=== PATIENT | male | born 1970 | race Caucasian/White ===

== ENCOUNTER 2016-12-02 03:28 | Emergency (ER) | payer BC ==
[2016-12-02] MEDS ORDERED: ONDANSETRON 4MG/2ML VIAL (J2405) As Ordered ONE (04:04)
[2016-12-02] MEDS ORDERED: MORPHINE 4 MG/ML 1ML SYRINGE As Ordered ONE (04:04)
[2016-12-02 04:32] LABS: BASO % 0.6 % (0.0-1.0); EOS # 0.3 K/mm3 (0.0-0.50); EOS % 5.4 % (0.0-3.0); LARGE UNSTAINED CELL # 0.1 K/mm3 (0.0-0.4); LARGE UNSTAINED CELL % 1.5 % (0.0-4.0); LYMPH # 1.6 K/mm3 (1.5-4.5); LYMPH % 29.9 % (24.0-44.0); MEAN CORPUSCULAR HEMOGLOBIN 30.7 pg (27.0-33.0); MEAN CORPUSCULAR HGB CONC 34.3 g/dl (32.0-36.5); MEAN CORPUSCULAR VOLUME 89.6 fl (80.0-96.0); MONO # 0.4 K/mm3 (0.0-0.8); MONO % 7.7 % (0.0-5.0); NEUTROPHILS # 2.9 K/mm3 (1.8-7.7); NEUTROPHILS % 54.8 % (36.0-66.0); PLATELET COUNT, AUTOMATED 167 k/mm3 (150-450); RED CELL DISTRIBUTION WIDTH 12.8 % (11.5-14.5); WHITE BLOOD COUNT 5.2 K/mm3 (4.0-10.0)
[2016-12-02] MEDS ORDERED: HYDROmorphone HCL 1 MG/ML SYRINGE (J1170) As Ordered ONE ×2 (04:43→06:01)
[2016-12-02 04:57] LABS: ANION GAP 5 MEQ/L (8-16); BLOOD UREA NITROGEN 15 MG/DL (7-18); CALCIUM LEVEL 8.5 MG/DL (8.5-10.1); CARBON DIOXIDE LEVEL 28 MEQ/L (21-32); CHLORIDE LEVEL 111 MEQ/L (98-107); CREATININE FOR GFR 0.92 MG/DL (0.70-1.30); GLOMERULAR FILTRATION RATE > 60.0 (>60); GLUCOSE, FASTING 107 MG/DL (70-105); POTASSIUM SERUM 3.9 MEQ/L (3.5-5.1); SODIUM LEVEL 144 MEQ/L (136-145)
--- NOTE | 2016-12-02 05:25 | REP ---
Clinical: Chest pain . Comparison: 09/25/2016 . Technique: PA and lateral. Findings: The mediastinum and cardiac silhouette are normal. The lung barragan are clear and without acute consolidation, effusion, or pneumothorax. The skeletal structures are intact and normal. Impression: 1. No acute cardiopulmonary process. Signed by Kumar Osorio MD 12/02/2016 05:17 A
--- NOTE | 2016-12-02 09:00 | ECGEPIP ---
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
--- NOTE | 2016-12-02 11:08 | EDDOCDS ---
Nurse's Notes [facility] Name: Abebe Goodman Age: 46 yrs Sex: Male : 1970 Arrival Date: 12/02/2016 Time: 03:28 Bed OBSERVATION Private MD: Ashli Bullard Diagnosis: Chest pain, unspecified Presentation: 12/02 03:30 Presenting complaint: EMS states: patient woke up an hour ago with chest pain. Patient nn1 given 3 nitro and 4 baby ASA at 0305. Nitro only offered momentary relief. Last nitro at 0320, pain is 5/10 at this time. Aspirin was taken HYPERTRICHOLOGIST. Suicide/Homicide risk assessment- the patient denies having any suicidal and/or homicidal ideations and does not present with any other emotional, behavioral or mental health complaints. Status: Patient is not a sales and service representative or dependent. Transition of care: patient was not received from another setting of care. 03:30 Acuity: BABS Level 3 nn1 03:30 Method Of Arrival: Ambulance nn1 10:03 Adult Sepsis Screening: The patient does not have new or worsening altered mentation. kc3 Patient's respiratory rate is less than 22. Systolic blood pressure is greater than 100. Patient has a qSOFA score of 0- Negative Sepsis Screen. Triage Assessment: 03:37 General: Appears uncomfortable. Pain: Location: left clavicle, anterior aspect of left nn1 upper chest and left breast Pain currently is 5 out of 10 on a pain scale. Pain radiates to posterior aspect of left shoulder Pain began 1 hour ago. HIV screening NA for this visit Offered previously. The patient is triaged at the bedside. See Assessment in Nurses Notes section of ED record. Neurological: Level of Consciousness is awake, alert, Oriented to person, place, time. Cardiovascular: Rhythm is regular Chest pain is described as severe, radiates to left scapula episodes are continuous began 1 hour prior to arrival Patient reports this pain is different from other chest pains in the past. Respiratory: Airway is patent Respiratory effort is even, unlabored, Respiratory pattern is regular, Breath sounds are clear bilaterally. Reports shortness of breath. GI: Abdomen is non- distended Bowel sounds present X 4 quads. Reports nausea. Derm: Skin is pink, warm & dry. Musculoskeletal: No deficits noted. Historical: - Allergies: No known drug Allergies; - Home Meds: 1. Crestor Oral once daily 2. Flomax Oral once daily 3. Nexium Oral once daily - PMHx: GERD; Hypercholesterolemia; - PSHx: Ablation, Cardiac; Shoulder Arthroplasty, Left; Shoulder Arthroplasty. Right; Hernia repair; Appendectomy; - Social history: Smoking status: Patient states former smoker of tobacco. No barriers to communication noted, The patient speaks fluent Divehi, Speaks appropriately for age. - Family history: Not pertinent. - : The pt / caregiver states he / she is not on anticoagulants. Home medication list is obtained from the patient. - Exposure Risk Screening:: None identified. Screenin:39 Screening information is obtained from the patient. Fall risk: No risks identified. nn1 Assistance ADL's: requires no assistance with activities of daily living. Abuse/DV Screen: The patient / caregiver reports he/she is: not in a situation that causes fear, pain or injury. Nutritional screening: No deficits noted. Advance Directives: Currently, there is no health care proxy. There is no active DNR order. home support is adequate. Assessment: 03:42 General: See triage assessment . nn1 04:29 General: Appears in no apparent distress, Behavior is appropriate for age, cooperative. nn1 Neurological: Level of Consciousness is awake, alert, obeys commands. Cardiovascular: Capillary refill < 3 seconds Heart tones S1 S2 present Rhythm is regular. Respiratory: Airway is patent Respiratory effort is even, unlabored, Respiratory pattern is regular, symmetrical. Derm: Skin is pink, warm & dry. 05:30 Reassessment: Patient appears in no apparent distress at this time. nn1 06:36 General: Appears in no apparent distress, comfortable, Behavior is appropriate for age, nn1 cooperative. Neurological: Level of Consciousness is awake, alert, obeys commands. Respiratory: Airway is patent Respiratory effort is even, unlabored, Respiratory pattern is regular, symmetrical. Derm: Skin is pink, warm & dry. 06:46 Reassessment: Patient appears in no apparent distress at this time. Patient states nn1 feeling better. General: Appears Behavior is drowsy. 07:27 General: Appears to be sleeping. Cardiovascular: Rhythm is sinus bradycardia. jjr Respiratory: No deficits noted. Derm: Skin is pink, warm & dry. 08:22 General: Appears in no apparent distress. Cardiovascular: Rhythm is sinus rhythm Chest jjr pain is described as Pain is 1 out of 10 on a pain scale. is located in left anterior radiates Does not radiate. Respiratory: No deficits noted. Derm: No deficits noted. 09:20 General: Appears in no apparent distress, comfortable, Behavior is appropriate for age, kc3 cooperative. Pain: Location: chest Pain currently is 1 out of 10 on a pain scale. Neurological: Level of Consciousness is awake, alert, obeys commands, Oriented to person, place, time. Cardiovascular: Rhythm is sinus rhythm. Respiratory: Airway is patent Respiratory effort is even, unlabored. Derm: Skin is pink, warm & dry. 10:01 General: Appears in no apparent distress, comfortable, Behavior is appropriate for age, kc3 cooperative. Neurological: Level of Consciousness is awake, alert, obeys commands, Oriented to person, place, time. Cardiovascular: Rhythm is sinus rhythm. Cardiovascular: Rhythm is regular. Respiratory: Airway is patent Respiratory effort is even, unlabored. Derm: Skin is pink, warm & dry. 11:03 Reassessment: Patient denies pain at this time. General: Appears comfortable, well kcs developed, well nourished, well groomed, Behavior is cooperative, pleasant. Pain: Denies pain. Neurological: Level of Consciousness is awake, alert. Respiratory: Airway is patent Respiratory effort is even, unlabored, Respiratory pattern is regular, symmetrical. Derm: Skin is intact, is healthy with good turgor, Skin is dry, Skin is normal. Vital Signs: 03:41 BP 111 / 72; Pulse 63; Resp 18; Temp 98.5; Pulse Ox 98% on R/A; Weight 92.99 kg (R); nn1 Height 6 ft. 1 in. (185.42 cm); Pain 5/10; 03:53 Pulse 58 MON; Pulse Ox 97% ; nn1 03:54 BP 111 / 71 (auto/); nn1 04:08 Pulse 52 MON; Pulse Ox 98% ; nn1 04:09 BP 116 / 75 (auto/); nn1 04:23 Pulse 60 MON; Pulse Ox 97% ; nn1 04:24 BP 114 / 72 (auto/); nn1 04:35 Pulse 70 MON; Pulse Ox 97% ; nn1 04:38 Pulse 54 MON; nn1 04:39 BP 117 / 71 (auto/); nn1 04:53 Pulse 58 MON; Pulse Ox 95% ; nn1 04:54 BP 111 / 70 (auto/); nn1 05:08 Pulse 50 MON; Pulse Ox 95% ; nn1 05:09 BP 114 / 72 (auto/); nn1 05:23 Pulse 50 MON; Pulse Ox 96% ; nn1 05:24 BP 116 / 71 (auto/); nn1 05:38 Pulse 48 MON; Pulse Ox 97% ; nn1 05:39 BP 117 / 73 (auto/); nn1 05:54 BP 117 / 75 (auto/); nn1 05:54 Pulse 60 MON; Pulse Ox 96% ; nn1 06:09 Pulse 76 MON; nn1 06:09 BP 125 / 83 (auto/); nn1 06:12 Pulse 76 MON; Pulse Ox 96% ; nn1 06:24 BP 112 / 72 (auto/); nn1 06:24 Pulse 48 MON; Pulse Ox 96% ; nn1 06:39 BP 113 / 70 (auto/); nn1 06:39 Pulse 50 MON; Pulse Ox 95% ; nn1 06:54 BP 115 / 76 (auto/); jjr 06:54 Pulse 46 MON; Resp 18; Pulse Ox 97% on R/A; jjr 07:54 BP 107 / 54 (auto/); kc3 08:00 Pulse 56 MON; Pulse Ox 97% ; kc3 08:20 Pulse 80 MON; Pulse Ox 97% ; kc3 08:54 BP 125 / 72 (auto/); kc3 08:54 Pulse 68 MON; kc3 09:54 BP 121 / 72 (auto/); kc3 09:54 Pulse 60 MON; kc3 11:03 BP 127 / 74; Pulse 82; Resp 20; Temp 97.4(O); Pulse Ox 98% on R/A; Pain 0/10; kcs 03:41 Body Mass Index 27.05 (92.99 kg, 185.42 cm) nn1 Vitals: 03:41 Log In Time N/A - ambulance arrival. nn1 ED Course: 03:29 Patient visited by Brandon Crocker PCA. kb5 03:29 Ashli Bullard MD is Private Physician. kb5 03:29 Patient moved to Waiting kb5 03:29 Patient moved to kb5 03:32 Triage Initiated nn1 03:40 Patient visited by David Ring PCA. mdr 03:40 EKG done. (by ED staff). Reviewed by Eddie Castillo DO. mdr 03:50 Eddie Castillo DO is Attending Physician. mm11 03:50 Patient visited by Eddie Castillo DO. mm11 04:01 Patient visited by Eddie Castillo DO. mm11 04:18 [facility] Payment Agreement was scanned into [employer] and attached to record. hs2 04:26 Basic Metabolic Profile Sent. jmv 04:26 CBC with Diff Sent. jmv 04:26 Cardiac Injury Profile Sent. jmv 04:26 D-Dimer Quant Sent. jmv 04:26 Troponin Sent. jmv 04:59 Patient visited by Chrystal Jane RN. nn1 05:40 Chest, 2 View (pa\E\lat) Returned. EDMS 05:57 Patient visited by Chrystal Jane RN. nn1 06:36 Patient visited by Chrystal Jane RN. nn1 07:08 Angie Johnson, ANGIE is Primary Nurse. jjr 07:24 Patient visited by Eddie Castillo DO. mm11 07:26 Patient moved to OBSERVATION mm11 07:27 Patient visited by Angie Johnson, ANGIE. jjr 07:35 Attending Physician role handed off by Eddie Castillo DO sd1 07:35 Monalisa Davila MD is Attending Physician. sd1 08:23 Patient visited by Angie Johnson, ANGIE. jjr 09:01 EKG-ADULT Returned. EDMS 09:40 CARDIAC MARKER PANEL Sent. kc3 09:41 Patient visited by Elif Mora RN. kc3 10:03 The patient / caregiver is instructed regarding the plan of care and ED course. Cardiac kc3 monitor on. Pulse ox on. NIBP on. 10:04 Maintain field IV. Dressing intact. Site clean & dry. Gauge & site: 20G left AC. kc3 10:26 Ruy Henry is Referral Physician. sd1 10:26 Ashli Bullard MD is Referral Physician. sd1 11:03 Discontinued lock intact, bleeding controlled, pressure dressing applied, No kcs redness/swelling at site. No procedures done that require assistance. Administered Medications: 04:09 Drug: Ondansetron 4 mg [ondansetron HCl 2 mg/mL intravenous solution (2 mL)] Route: nn1 IVP; Site: left antecubital; 04:10 Drug: morphine 4 mg [morphine 4 mg/mL intravenous cartridge (1 mL)] Route: IVP; Site: nn1 left antecubital; 04:51 Drug: Dilaudid - HYDROmorphone 0.5 mg [hydromorphone 1 mg/mL injection syringe (0.5 nn1 mL)] Route: IVP; Site: left antecubital; 06:09 Drug: Dilaudid - HYDROmorphone 0.5 mg [hydromorphone 1 mg/mL injection syringe (0.5 nn1 mL)] Route: IVP; Site: left antecubital; Order Results: Lab Order: Basic Metabolic Profile; SPEC'M 12/02/16 04:23 Test: GLUCOSE, FASTING; Value: 107; Range: 70-105; Abnormal: Above high normal; Units: MG/DL; Status: F Test: BLOOD UREA NITROGEN; Value: 15; Range: 7-18; Units: MG/DL; Status: F Test: CREATININE FOR GFR; Value: 0.92; Range: 0.70-1.30; Units: MG/DL; Status: F Test: GLOMERULAR FILTRATION RATE; Value: > 60.0; Range: >60; Status: F Test: SODIUM LEVEL; Value: 144; Range: 136-145; Units: MEQ/L; Status: F Test: POTASSIUM SERUM; Value: 3.9; Range: 3.5-5.1; Units: MEQ/L; Status: F Test: CHLORIDE LEVEL; Value: 111; Range: 98-107; Abnormal: Above high normal; Units: MEQ/L; Status: F Test: CARBON DIOXIDE LEVEL; Value: 28; Range: 21-32; Units: MEQ/L; Status: F Test: ANION GAP; Value: 5; Range: 8-16; Abnormal: Below low normal; Units: MEQ/L; Status: F Test: CALCIUM LEVEL; Value: 8.5; Range: 8.5-10.1; Units: MG/DL; Status: F Test Note: ; Units are mL/min/1.73 m2 Chronic Kidney Disease Staging per NKF: Stage I & II GFR >=60 Normal to Mildly Decreased Stage III GFR 30-59 Moderately Decreased Stage IV GFR 15-29 Severely Decreased Stage V GFR <15 Very Little GFR Left ESRD GFR <15 on MELTER SUPERVISOR OPEN HEARTH FURNACE Lab Order: CBC with Diff; SPEC'M 12/02/16 04:23 Test: WHITE BLOOD COUNT; Value: 5.2; Range: 4.0-10.0; Units: K/mm3; Status: F Test: RED BLOOD COUNT; Value: 4.56; Range: 4.30-6.10; Units: M/mm3; Status: F Test: HEMOGLOBIN; Value: 14.0; Range: 14.0-18.0; Units: g/dl; Status: F Test: HEMATOCRIT; Value: 40.9; Range: 42.0-52.0; Abnormal: Below low normal; Units: %; Status: F Test: MEAN CORPUSCULAR VOLUME; Value: 89.6; Range: 80.0-96.0; Units: fl; Status: F Test: MEAN CORPUSCULAR HEMOGLOBIN; Value: 30.7; Range: 27.0-33.0; Units: pg; Status: F Test: MEAN CORPUSCULAR HGB CONC; Value: 34.3; Range: 32.0-36.5; Units: g/dl; Status: F Test: RED CELL DISTRIBUTION WIDTH; Value: 12.8; Range: 11.5-14.5; Units: %; Status: F Test: PLATELET COUNT, AUTOMATED; Value: 167; Range: 150-450; Units: k/mm3; Status: F Test: NEUTROPHILS %; Value: 54.8; Range: 36.0-66.0; Units: %; Status: F Test: LYMPH %; Value: 29.9; Range: 24.0-44.0; Units: %; Status: F Test: MONO %; Value: 7.7; Range: 0.0-5.0; Abnormal: Above high normal; Units: %; Status: F Test: EOS %; Value: 5.4; Range: 0.0-3.0; Abnormal: Above high normal; Units: %; Status: F Test: BASO %; Value: 0.6; Range: 0.0-1.0; Units: %; Status: F Test: LARGE UNSTAINED CELL %; Value: 1.5; Range: 0.0-4.0; Units: %; Status: F Test: NEUTROPHILS #; Value: 2.9; Range: 1.8-7.7; Units: K/mm3; Status: F Test: LYMPH #; Value: 1.6; Range: 1.5-4.5; Units: K/mm3; Status: F Test: MONO #; Value: 0.4; Range: 0.0-0.8; Units: K/mm3; Status: F Test: EOS #; Value: 0.3; Range: 0.0-0.50; Units: K/mm3; Status: F Test: BASO #; Value: 0.0; Range: 0.0-0.2; Units: K/mm3; Status: F Test: LARGE UNSTAINED CELL #; Value: 0.1; Range: 0.0-0.4; Units: K/mm3; Status: F Lab Order: Cardiac Injury Profile; SPEC12/02/16 04:23 Test: CPK CREATINE PHOSPHOKINASE; Value: 126; Range: 39-308; Units: U/L; Status: F Test: CK-MB VALUE MASS; Value: 1.9; Range: 0.0-3.6; Units: NG/ML; Status: F Test: MB/CK RELATIVE INDEX; Value: 1.50; Range: < OR =4; Status: F Test Note: ; DIAGNOSIS CRITERIA MMB ng/ml Relative Index (RI) NON-AMI < or = 5 N/A VELASQUEZ ZONE > 5 < or = 4 AMI > 5 > 4 Lab Order: D-Dimer Quant; 12/02/16 04:23 Test: D-DIMER QUANT; Value: < 270.0; Range: <500; Units: ng/ml; Status: F Lab Order: Troponin; 12/02/16 04:23 Test: TROPONIN I; Value: < 0.02; Range: < 0.10; Units: NG/ML; Status: F Test Note: ; Troponin I Reference Interval for [place] LOCI: 99th Percentile= 0.00-0.045 ng/ml Risk Stratification: <= 0.10 ng/ml Decreased Risk for Adverse Clinical Events. 0.10-1.50 ng/ml Increased Risk for Adverse Clinical Events. Evaluation of additional criterion and/or repeat testing in 2-6 hours is suggested to rule out myocardial damage. >= 1.50 ng/ml Indicative of Myocardial Injury. Lab Order: CARDIAC MARKER PANEL; SPEC'M 12/02/16 09:33 Test: CPK CREATINE PHOSPHOKINASE; Value: 112; Range: 39-308; Units: U/L; Status: F Test: CK-MB VALUE MASS; Value: 1.7; Range: 0.0-3.6; Units: NG/ML; Status: F Test: MB/CK RELATIVE INDEX; Value: 1.51; Range: < OR =4; Status: F Test: TROPONIN I; Value: < 0.02; Range: < 0.10; Units: NG/ML; Status: F Test Note: ; DIAGNOSIS CRITERIA MMB ng/ml Relative Index (RI) NON-AMI < or = 5 N/A VELASQUEZ ZONE > 5 < or = 4 AMI > 5 > 4 Radiology Order: Chest, 2 View (pa\E\lat) Test: Chest, 2 View (pa\E\lat) REASON FOR EXAMINATION: Chest Pain; Clinical: Chest pain .; ; Comparison: 09/25/2016 .; ; Technique: PA and lateral.; ; Findings:; The mediastinum and cardiac silhouette are normal. The lung barragan are clear and; without acute consolidation, effusion, or pneumothorax. The skeletal structures; are intact and normal.; ; Impression:; 1. No acute cardiopulmonary process.; ; ; Signed by; Kumar Osorio MD 12/02/2016 05:17 A; Outcome: 10:26 Discharge ordered by Provider. sd1 11:03 Discharge Assessment: Patient awake, alert and oriented x 3. No cognitive and/or kcs functional deficits noted. Patient verbalized understanding of disposition instructions. Patient awake and alert. patient administered narcotics - yes. Pt provided with safe discharge. The following High Risk Discharge criteria are identified: None. Discharged to home ambulatory, with significant other. Condition: stable. Discharge instructions given to patient, Instructed on discharge instructions, follow up and referral plans. medication usage, Demonstrated understanding of instructions, medications, Pt was receptive of discharge instructions/ teaching. No special radiology studies were completed. Property sent home with patient. 11:07 Patient left the ED. kcs Signatures: Dispatcher [employer] EDMonalisa Rodas MD MD sd1 Merry Lawler, RN RN Brandon Corley, INFORMATION SECURITY MANAGER INFORMATION SECURITY MANAGER kb5 Eddie Castillo, DO DO mm11 Angie Johnson, RN RN jjr Chrystal Jane RN RN nn1 David Ring, INFORMATION SECURITY MANAGER INFORMATION SECURITY MANAGER mdr Elif Mora RN RN kc3 Charlee Cordova, Reg Reg hs2 Elliot Jara, INFORMATION SECURITY MANAGER INFORMATION SECURITY MANAGER jmv Corrections: (The following items were deleted from the chart) 03:54 03:41 BP 117 / 2; Pulse 63bpm; Resp 18bpm; Pulse Ox 98% RA; Temp 98.5F; 92.99 kg nn1 Reported; Height 6 ft. 1 in.; BMI: 27.0; Pain 5/10; nn1 MTDD
--- NOTE | 2016-12-02 11:08 | EDDOCDS ---
Physician Documentation [facility] Name: Abebe Goodman Age: 46 yrs Sex: Male : 1970 Arrival Date: 12/02/2016 Time: 03:28 Bed OBSERVATION Private MD: Ashli Bullard Disposition: 12/02/16 10:26 Discharged to Home/Self Care. Impression: Chest pain, unspecified. - Condition is Stable. - Discharge Instructions: Angina Pectoris, Nonspecific Chest Pain, Chest Wall Pain, Nonspecific Chest Pain, [id number]. - Prescriptions for Aspirin 81 mg - take 1 tablet by ORAL route once daily; 90 tablet. - Medication Reconciliation, Local Pharmacy Hours form. - Follow up: Ruy Henry; When: Call to arrange an appointment. Follow up: Ashli Bullard MD; When: Call to arrange an appointment. - Problem is an acute exacerbation. - Symptoms are resolved. Historical: - Allergies: No known drug Allergies; - Home Meds: 1. Crestor Oral once daily 2. Flomax Oral once daily 3. Nexium Oral once daily - PMHx: GERD; Hypercholesterolemia; - PSHx: Ablation, Cardiac; Shoulder Arthroplasty, Left; Shoulder Arthroplasty. Right; Hernia repair; Appendectomy; - Social history: Smoking status: Patient states former smoker of tobacco. No barriers to communication noted, The patient speaks fluent Czech, Speaks appropriately for age. - Family history: Not pertinent. - : The pt / caregiver states he / she is not on anticoagulants. Home medication list is obtained from the patient. - Exposure Risk Screening:: None identified. Vital Signs: 12/02 03:41 BP 111 / 72; Pulse 63; Resp 18; Temp 98.5; Pulse Ox 98% on R/A; Weight 92.99 kg / nn1 205.01 lbs (R); Height 6 ft. 1 in. (185.42 cm); Pain 5/10; 03:53 Pulse 58 MON; Pulse Ox 97% ; nn1 03:54 BP 111 / 71 (auto/); nn1 04:08 Pulse 52 MON; Pulse Ox 98% ; nn1 04:09 BP 116 / 75 (auto/); nn1 04:23 Pulse 60 MON; Pulse Ox 97% ; nn1 04:24 BP 114 / 72 (auto/); nn1 04:35 Pulse 70 MON; Pulse Ox 97% ; nn1 04:38 Pulse 54 MON; nn1 04:39 BP 117 / 71 (auto/); nn1 04:53 Pulse 58 MON; Pulse Ox 95% ; nn1 04:54 BP 111 / 70 (auto/); nn1 05:08 Pulse 50 MON; Pulse Ox 95% ; nn1 05:09 BP 114 / 72 (auto/); nn1 05:23 Pulse 50 MON; Pulse Ox 96% ; nn1 05:24 BP 116 / 71 (auto/); nn1 05:38 Pulse 48 MON; Pulse Ox 97% ; nn1 05:39 BP 117 / 73 (auto/); nn1 05:54 BP 117 / 75 (auto/); nn1 05:54 Pulse 60 MON; Pulse Ox 96% ; nn1 06:09 Pulse 76 MON; nn1 06:09 BP 125 / 83 (auto/); nn1 06:12 Pulse 76 MON; Pulse Ox 96% ; nn1 06:24 BP 112 / 72 (auto/); nn1 06:24 Pulse 48 MON; Pulse Ox 96% ; nn1 06:39 BP 113 / 70 (auto/); nn1 06:39 Pulse 50 MON; Pulse Ox 95% ; nn1 06:54 BP 115 / 76 (auto/); jjr 06:54 Pulse 46 MON; Resp 18; Pulse Ox 97% on R/A; jjr 07:54 BP 107 / 54 (auto/); kc3 08:00 Pulse 56 MON; Pulse Ox 97% ; kc3 08:20 Pulse 80 MON; Pulse Ox 97% ; kc3 08:54 BP 125 / 72 (auto/); kc3 08:54 Pulse 68 MON; kc3 09:54 BP 121 / 72 (auto/); kc3 09:54 Pulse 60 MON; kc3 11:03 BP 127 / 74; Pulse 82; Resp 20; Temp 97.4(O); Pulse Ox 98% on R/A; Pain 0/10; kcs 03:41 Body Mass Index 27.05 (92.99 kg, 185.42 cm) nn1 MDM: 03:31 ECG WITH READING ER PHYS+CARDIAG ordered. EDMS 04:02 Venetian Blind Assembler/Pulse Ox/q 30 min VS ordered. mm11 04:02 IV Saline Lock ordered. mm11 04:02 Rhythm Strip to chart ordered. mm11 04:02 Undress patient appropriately for examination ordered. mm11 04:02 morphine 4 mg IVP every 30 minutes; Document pain score/vitals after each dose (Hold if mm11 SBP < 90mmHg) x2 ordered. 04:02 Ondansetron 4 mg IVP once ordered. mm11 04:03 Basic Metabolic Profile Ordered. EDMS 04:03 CBC with Diff Ordered. EDMS 04:03 Cardiac Injury Profile Ordered. EDMS 04:03 D-Dimer Quant Ordered. EDMS 04:03 Troponin Ordered. EDMS 04:04 Chest, 2 View (pa\E\lat) Ordered. EDMS 04:18 Financial registration complete. hs2 04:18 [facility] Payment Agreement was scanned into [employer] and attached to record. hs2 04:43 Dilaudid - HYDROmorphone 0.5 mg IVP once ordered. mm11 05:10 Basic Metabolic Profile Reviewed. mm11 05:10 CBC with Diff Reviewed. mm11 05:10 Cardiac Injury Profile Reviewed. mm11 05:10 D-Dimer Quant Reviewed. mm11 05:10 Troponin Reviewed. mm11 05:54 Dilaudid - HYDROmorphone 0.5 mg IVP once ordered. mm11 06:53 Chest, 2 View (pa\E\lat) Reviewed. mm11 07:24 Repeat EKG (put time details section) ordered. mm11 07:24 Redraw CIP &Troponin (put time in details section) ordered. mm11 07:28 REGULAR+DIET ordered. EDMS 07:28 Repeat EKG (put time details section) complete. deg 07:28 Redraw CIP &Troponin (put time in details section) complete. deg 07:29 ECG WITH READING ER PHYS ordered. EDMS 07:30 CARDIAC MARKER PANEL Ordered. EDMS 10:24 CARDIAC MARKER PANEL Reviewed. sd1 Administered Medications: 04:09 Drug: Ondansetron 4 mg [ondansetron HCl 2 mg/mL intravenous solution (2 mL)] Route: nn1 IVP; Site: left antecubital; 04:10 Drug: morphine 4 mg [morphine 4 mg/mL intravenous cartridge (1 mL)] Route: IVP; Site: nn1 left antecubital; 04:51 Drug: Dilaudid - HYDROmorphone 0.5 mg [hydromorphone 1 mg/mL injection syringe (0.5 nn1 mL)] Route: IVP; Site: left antecubital; 06:09 Drug: Dilaudid - HYDROmorphone 0.5 mg [hydromorphone 1 mg/mL injection syringe (0.5 nn1 mL)] Route: IVP; Site: left antecubital; Signatures: Dispatcher [employer] EDMonalisa Rodas MD MD sd1 Merry Lawler RN RN kcs Roslyn Potter, Microbiology Lab Technician Unit deg Eddie Castillo, DO mm11 Chrystal JaneRN RN nn1 Elif Mora RN RN kc3 Charlee Cordova, Reg Reg hs2 The chart was reviewed and I authenticate all verbal orders and agree with the evaluation and treatment provided.Attachments: 04:18 [facility] Payment Agreement hs2 MTDD
--- NOTE | 2016-12-02 21:07 | ECGEPIP ---
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
--- NOTE | 2016-12-04 12:08 | EDDOCDS ---
Nurse's Notes [facility] [facility] Name: Omkar Barajas Age: 46 yrs Sex: Male : 1970 Arrival Date: 12/02/2016 Time: 03:28 Bed OBSERVATION Private MD: Ashli Bullard Diagnosis: Chest pain, unspecified Presentation: 12/02 03:30 Presenting complaint: EMS states: patient woke up an hour ago with chest pain. Patient nn1 given 3 nitro and 4 baby ASA at 0305. Nitro only offered momentary relief. Last nitro at 0320, pain is 5/10 at this time. 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 Suicide/Homicide risk assessment- the patient denies having any suicidal and/or homicidal ideations and does not present with any other emotional, behavioral or mental health complaints. Status: Patient is not a food service aide or dependent. Transition of care: patient was not received from another setting of care. 03:30 Acuity: BABS Level 3 nn1 03:30 Method Of Arrival: Ambulance nn1 10:03 Adult Sepsis Screening: The patient does not have new or worsening altered mentation. kc3 Patient's respiratory rate is less than 22. Systolic blood pressure is greater than 100. Patient has a qSOFA score of 0- Negative Sepsis Screen. Triage Assessment: 03:37 General: Appears uncomfortable. Pain: Location: left clavicle, anterior aspect of left nn1 upper chest and left breast Pain currently is 5 out of 10 on a pain scale. Pain radiates to posterior aspect of left shoulder Pain began 1 hour ago. HIV screening NA for this visit Offered previously. The patient is triaged at the bedside. See Assessment in Nurses Notes section of ED record. Neurological: Level of Consciousness is awake, alert, Oriented to person, place, time. Cardiovascular: Rhythm is regular Chest pain is described as severe, radiates to left scapula episodes are continuous began 1 hour prior to arrival Patient reports this pain is different from other chest pains in the past. Respiratory: Airway is patent Respiratory effort is even, unlabored, Respiratory pattern is regular, Breath sounds are clear bilaterally. Reports shortness of breath. GI: Abdomen is non- distended Bowel sounds present X 4 quads. Reports nausea. Derm: Skin is pink, warm & dry. Musculoskeletal: No deficits noted. Historical: - Allergies: No known drug Allergies; - Home Meds: 1. Crestor Oral once daily 2. Flomax Oral once daily 3. Nexium Oral once daily - PMHx: GERD; Hypercholesterolemia; - PSHx: Ablation, Cardiac; Shoulder Arthroplasty, Left; Shoulder Arthroplasty. Right; Hernia repair; Appendectomy; - Social history: Smoking status: Patient states former smoker of tobacco. No barriers to communication noted, The patient speaks fluent Yakut, Speaks appropriately for age. - Family history: Not pertinent. - : The pt / caregiver states he / she is not on anticoagulants. Home medication list is obtained from the patient. - Exposure Risk Screening:: None identified. Screenin:39 Screening information is obtained from the patient. Fall risk: No risks identified. nn1 Assistance ADL's: requires no assistance with activities of daily living. Abuse/DV Screen: The patient / caregiver reports he/she is: not in a situation that causes fear, pain or injury. Nutritional screening: No deficits noted. Advance Directives: Currently, there is no health care proxy. There is no active DNR order. home support is adequate. Assessment: 03:42 General: See triage assessment . nn1 04:29 General: Appears in no apparent distress, Behavior is appropriate for age, cooperative. nn1 Neurological: Level of Consciousness is awake, alert, obeys commands. Cardiovascular: Capillary refill < 3 seconds Heart tones S1 S2 present Rhythm is regular. Respiratory: Airway is patent Respiratory effort is even, unlabored, Respiratory pattern is regular, symmetrical. Derm: Skin is pink, warm & dry. 05:30 Reassessment: Patient appears in no apparent distress at this time. nn1 06:36 General: Appears in no apparent distress, comfortable, Behavior is appropriate for age, nn1 cooperative. Neurological: Level of Consciousness is awake, alert, obeys commands. Respiratory: Airway is patent Respiratory effort is even, unlabored, Respiratory pattern is regular, symmetrical. Derm: Skin is pink, warm & dry. 06:46 Reassessment: Patient appears in no apparent distress at this time. Patient states nn1 feeling better. General: Appears Behavior is drowsy. 07:27 General: Appears to be sleeping. Cardiovascular: Rhythm is sinus bradycardia. jjr Respiratory: No deficits noted. Derm: Skin is pink, warm & dry. 08:22 General: Appears in no apparent distress. Cardiovascular: Rhythm is sinus rhythm Chest jjr pain is described as Pain is 1 out of 10 on a pain scale. is located in left anterior radiates Does not radiate. Respiratory: No deficits noted. Derm: No deficits noted. 09:20 General: Appears in no apparent distress, comfortable, Behavior is appropriate for age, kc3 cooperative. Pain: Location: chest Pain currently is 1 out of 10 on a pain scale. Neurological: Level of Consciousness is awake, alert, obeys commands, Oriented to person, place, time. Cardiovascular: Rhythm is sinus rhythm. Respiratory: Airway is patent Respiratory effort is even, unlabored. Derm: Skin is pink, warm & dry. 10:01 General: Appears in no apparent distress, comfortable, Behavior is appropriate for age, kc3 cooperative. Neurological: Level of Consciousness is awake, alert, obeys commands, Oriented to person, place, time. Cardiovascular: Rhythm is sinus rhythm. Cardiovascular: Rhythm is regular. Respiratory: Airway is patent Respiratory effort is even, unlabored. Derm: Skin is pink, warm & dry. 11:03 Reassessment: Patient denies pain at this time. General: Appears comfortable, well kcs developed, well nourished, well groomed, Behavior is cooperative, pleasant. Pain: Denies pain. Neurological: Level of Consciousness is awake, alert. Respiratory: Airway is patent Respiratory effort is even, unlabored, Respiratory pattern is regular, symmetrical. Derm: Skin is intact, is healthy with good turgor, Skin is dry, Skin is normal. Vital Signs: 03:41 BP 111 / 72; Pulse 63; Resp 18; Temp 98.5; Pulse Ox 98% on R/A; Weight 92.99 kg (R); nn1 Height 6 ft. 1 in. (185.42 cm); Pain 5/10; 03:53 Pulse 58 MON; Pulse Ox 97% ; nn1 03:54 BP 111 / 71 (auto/); nn1 04:08 Pulse 52 MON; Pulse Ox 98% ; nn1 04:09 BP 116 / 75 (auto/); nn1 04:23 Pulse 60 MON; Pulse Ox 97% ; nn1 04:24 BP 114 / 72 (auto/); nn1 04:35 Pulse 70 MON; Pulse Ox 97% ; nn1 04:38 Pulse 54 MON; nn1 04:39 BP 117 / 71 (auto/); nn1 04:53 Pulse 58 MON; Pulse Ox 95% ; nn1 04:54 BP 111 / 70 (auto/); nn1 05:08 Pulse 50 MON; Pulse Ox 95% ; nn1 05:09 BP 114 / 72 (auto/); nn1 05:23 Pulse 50 MON; Pulse Ox 96% ; nn1 05:24 BP 116 / 71 (auto/); nn1 05:38 Pulse 48 MON; Pulse Ox 97% ; nn1 05:39 BP 117 / 73 (auto/); nn1 05:54 BP 117 / 75 (auto/); nn1 05:54 Pulse 60 MON; Pulse Ox 96% ; nn1 06:09 Pulse 76 MON; nn1 06:09 BP 125 / 83 (auto/); nn1 06:12 Pulse 76 MON; Pulse Ox 96% ; nn1 06:24 BP 112 / 72 (auto/); nn1 06:24 Pulse 48 MON; Pulse Ox 96% ; nn1 06:39 BP 113 / 70 (auto/); nn1 06:39 Pulse 50 MON; Pulse Ox 95% ; nn1 06:54 BP 115 / 76 (auto/); jjr 06:54 Pulse 46 MON; Resp 18; Pulse Ox 97% on R/A; jjr 07:54 BP 107 / 54 (auto/); kc3 08:00 Pulse 56 MON; Pulse Ox 97% ; kc3 08:20 Pulse 80 MON; Pulse Ox 97% ; kc3 08:54 BP 125 / 72 (auto/); kc3 08:54 Pulse 68 MON; kc3 09:54 BP 121 / 72 (auto/); kc3 09:54 Pulse 60 MON; kc3 11:03 BP 127 / 74; Pulse 82; Resp 20; Temp 97.4(O); Pulse Ox 98% on R/A; Pain 0/10; kcs 03:41 Body Mass Index 27.05 (92.99 kg, 185.42 cm) nn1 Vitals: 03:41 Log In Time N/A - ambulance arrival. nn1 ED Course: 03:29 Patient visited by Brandon Crocker PCA. kb5 03:29 Ashli Bullard MD is Private Physician. kb5 03:29 Patient moved to Waiting kb5 03:29 Patient moved to kb5 03:32 Triage Initiated nn1 03:40 Patient visited by David Ring PCA. mdr 03:40 EKG done. (by ED staff). Reviewed by Richard Castillo DO. mdr 03:50 Richard Castillo DO is Attending Physician. mm11 03:50 Patient visited by Richard Castillo DO. mm11 04:01 Patient visited by Richard Castillo DO. mm11 04:18 [facility] Payment Agreement was scanned into [employer] and attached to record. hs2 04:26 Basic Metabolic Profile Sent. jmv 04:26 CBC with Diff Sent. jmv 04:26 Cardiac Injury Profile Sent. jmv 04:26 D-Dimer Quant Sent. jmv 04:26 Troponin Sent. jmv 04:59 Patient visited by Chrystal Jane RN. nn1 05:40 Chest, 2 View (pa\E\lat) Returned. EDMS 05:57 Patient visited by Chrystal Jane RN. nn1 06:36 Patient visited by Chrystal Jane RN. nn1 07:08 Angie Johnson, ANGIE is Primary Nurse. jjr 07:24 Patient visited by Richard Castillo DO. mm11 07:26 Patient moved to OBSERVATION mm11 07:27 Patient visited by Angie Johnson, ANGIE. jjr 07:35 Attending Physician role handed off by Richard Castillo DO sd1 07:35 Monalisa Davila MD is Attending Physician. sd1 08:23 Patient visited by Angie Johnson, ANGIE. jjr 09:01 EKG-ADULT Returned. EDMS 09:40 CARDIAC MARKER PANEL Sent. kc3 09:41 Patient visited by Elif Mora RN. kc3 10:03 The patient / caregiver is instructed regarding the plan of care and ED course. Cardiac kc3 monitor on. Pulse ox on. NIBP on. 10:04 Maintain field IV. Dressing intact. Site clean & dry. Gauge & site: 20G left AC. kc3 10:26 Ruy Henry is Referral Physician. sd1 10:26 Ashli Bullard MD is Referral Physician. sd1 11:03 Discontinued lock intact, bleeding controlled, pressure dressing applied, No kcs redness/swelling at site. No procedures done that require assistance. 13:27 T-Sheet-- Draft Copy was scanned into [employer] and attached to record. gb 13:27 ECG/EKG was scanned into [employer] and attached to record. gb 13:27 Rhythm Strip was scanned into [employer] and attached to record. gb 21:58 ECG WITH READING ER PHYS Returned. EDMS 12/03 09:07 PCR was scanned into [employer] and attached to record. gb Administered Medications: 12/02 04:09 Drug: Ondansetron 4 mg [ondansetron HCl 2 mg/mL intravenous solution (2 mL)] Route: nn1 IVP; Site: left antecubital; 04:10 Drug: morphine 4 mg [morphine 4 mg/mL intravenous cartridge (1 mL)] Route: IVP; Site: nn1 left antecubital; 04:51 Drug: Dilaudid - HYDROmorphone 0.5 mg [hydromorphone 1 mg/mL injection syringe (0.5 nn1 mL)] Route: IVP; Site: left antecubital; 06:09 Drug: Dilaudid - HYDROmorphone 0.5 mg [hydromorphone 1 mg/mL injection syringe (0.5 nn1 mL)] Route: IVP; Site: left antecubital; Attachments: 13:27 Rhythm Strip gb Order Results: Lab Order: Basic Metabolic Profile; SPEC'M 12/02/16 04:23 Test: GLUCOSE, FASTING; Value: 107; Range: 70-105; Abnormal: Above high normal; Units: MG/DL; Status: F Test: BLOOD UREA NITROGEN; Value: 15; Range: 7-18; Units: MG/DL; Status: F Test: CREATININE FOR GFR; Value: 0.92; Range: 0.70-1.30; Units: MG/DL; Status: F Test: GLOMERULAR FILTRATION RATE; Value: > 60.0; Range: >60; Status: F Test: SODIUM LEVEL; Value: 144; Range: 136-145; Units: MEQ/L; Status: F Test: POTASSIUM SERUM; Value: 3.9; Range: 3.5-5.1; Units: MEQ/L; Status: F Test: CHLORIDE LEVEL; Value: 111; Range: 98-107; Abnormal: Above high normal; Units: MEQ/L; Status: F Test: CARBON DIOXIDE LEVEL; Value: 28; Range: 21-32; Units: MEQ/L; Status: F Test: ANION GAP; Value: 5; Range: 8-16; Abnormal: Below low normal; Units: MEQ/L; Status: F Test: CALCIUM LEVEL; Value: 8.5; Range: 8.5-10.1; Units: MG/DL; Status: F Test Note: ; Units are mL/min/1.73 m2 Chronic Kidney Disease Staging per NKF: Stage I & II GFR >=60 Normal to Mildly Decreased Stage III GFR 30-59 Moderately Decreased Stage IV GFR 15-29 Severely Decreased Stage V GFR <15 Very Little GFR Left ESRD GFR <15 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0-36.5; Units: g/dl; Status: F Test: RED CELL DISTRIBUTION WIDTH; Value: 12.8; Range: 11.5-14.5; Units: %; Status: F Test: PLATELET COUNT, AUTOMATED; Value: 167; Range: 150-450; Units: k/mm3; Status: F Test: NEUTROPHILS %; Value: 54.8; Range: 36.0-66.0; Units: %; Status: F Test: LYMPH %; Value: 29.9; Range: 24.0-44.0; Units: %; Status: F Test: MONO %; Value: 7.7; Range: 0.0-5.0; Abnormal: Above high normal; Units: %; Status: F Test: EOS %; Value: 5.4; Range: 0.0-3.0; Abnormal: Above high normal; Units: %; Status: F Test: BASO %; Value: 0.6; Range: 0.0-1.0; Units: %; Status: F Test: LARGE UNSTAINED CELL %; Value: 1.5; Range: 0.0-4.0; Units: %; Status: F Test: NEUTROPHILS #; Value: 2.9; Range: 1.8-7.7; Units: K/mm3; Status: F Test: LYMPH #; Value: 1.6; Range: 1.5-4.5; Units: K/mm3; Status: F Test: MONO #; Value: 0.4; Range: 0.0-0.8; Units: K/mm3; Status: F Test: EOS #; Value: 0.3; Range: 0.0-0.50; Units: K/mm3; Status: F Test: BASO #; Value: 0.0; Range: 0.0-0.2; Units: K/mm3; Status: F Test: LARGE UNSTAINED CELL #; Value: 0.1; Range: 0.0-0.4; Units: K/mm3; Status: F Lab Order: Cardiac Injury Profile; SPEC'M 12/02/16 04:23 Test: CPK CREATINE PHOSPHOKINASE; Value: 126; Range: 39-308; Units: U/L; Status: F Test: CK-MB VALUE MASS; Value: 1.9; Range: 0.0-3.6; Units: NG/ML; Status: F Test: MB/CK RELATIVE INDEX; Value: 1.50; Range: < OR =4; Status: F Test Note: ; DIAGNOSIS CRITERIA MMB ng/ml Relative Index (RI) NON-AMI < or = 5 N/A VELASQUEZ ZONE > 5 < or = 4 AMI > 5 > 4 Lab Order: D-Dimer Quant; SPEC'M 12/02/16 04:23 Test: D-DIMER QUANT; Value: < 270.0; Range: <500; Units: ng/ml; Status: F Lab Order: Troponin; SPEC'M 12/02/16 04:23 Test: TROPONIN I; Value: < 0.02; Range: < 0.10; Units: NG/ML; Status: F Test Note: ; Troponin I Reference Interval for Siemens Shiro LOCI: 99th Percentile= 0.00-0.045 ng/ml Risk Stratification: <= 0.10 ng/ml Decreased Risk for Adverse Clinical Events. 0.10-1.50 ng/ml Increased Risk for Adverse Clinical Events. Evaluation of additional criterion and/or repeat testing in 2-6 hours is suggested to rule out myocardial damage. >= 1.50 ng/ml Indicative of Myocardial Injury. Lab Order: CARDIAC MARKER PANEL; SPEC'M 12/02/16 09:33 Test: CPK CREATINE PHOSPHOKINASE; Value: 112; Range: 39-308; Units: U/L; Status: F Test: CK-MB VALUE MASS; Value: 1.7; Range: 0.0-3.6; Units: NG/ML; Status: F Test: MB/CK RELATIVE INDEX; Value: 1.51; Range: < OR =4; Status: F Test: TROPONIN I; Value: < 0.02; Range: < 0.10; Units: NG/ML; Status: F Test Note: ; DIAGNOSIS CRITERIA MMB ng/ml Relative Index (RI) NON-AMI < or = 5 N/A VELASQUEZ ZONE > 5 < or = 4 AMI > 5 > 4 Radiology Order: Chest, 2 View (pa\E\lat) Test: Chest, 2 View (pa\E\lat) REASON FOR EXAMINATION: Chest Pain; Clinical: Chest pain .; ; Comparison: 09/25/2016 .; ; Technique: PA and lateral.; ; Findings:; The mediastinum and cardiac silhouette are normal. The lung barragan are clear and; without acute consolidation, effusion, or pneumothorax. The skeletal structures; are intact and normal.; ; Impression:; 1. 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 sd1 11:03 Discharge Assessment: Patient awake, alert and oriented x 3. No cognitive and/or kcs functional deficits noted. Patient verbalized understanding of disposition instructions. Patient awake and alert. patient administered narcotics - yes. Pt provided with safe discharge. The following High Risk Discharge criteria are identified: None. Discharged to home ambulatory, with significant other. Condition: stable. Discharge instructions given to patient, Instructed on discharge instructions, follow up and referral plans. medication usage, Demonstrated understanding of instructions, medications, Pt was receptive of discharge instructions/ teaching. No special radiology studies were completed. Property sent home with patient. 11:07 Patient left the ED. kcs Signatures: Dispatcher [employer] EDMS Monalisa Davila MD MD sd1 Merry Lawler, RN RN kcs Aria Oquendo, Reg Reg gb Obi, Brandon, ULTIMATE HOOPS REFEREE ULTIMATE HOOPS REFEREE kb5 Richard Castillo, DO mm11 Angie Johnson RN Chrystal BrizuelaRN RN nn1 David Ring, ULTIMATE HOOPS REFEREE ULTIMATE HOOPS REFEREE Elif Guthrie RN RN kc3 Charlee Cordova, Reg Reg hs2 Elliot Jara, ULTIMATE HOOPS REFEREE ULTIMATE HOOPS REFEREE jmv Corrections: (The following items were deleted from the chart) 03:54 03:41 BP 117 / 2; Pulse 63bpm; Resp 18bpm; Pulse Ox 98% RA; Temp 98.5F; 92.99 kg nn1 Reported; Height 6 ft. 1 in.; BMI: 27.0; Pain 5/10; nn1 Chart Complete MTDD
--- NOTE | 2016-12-04 12:08 | EDDOCDS ---
Physician Documentation [facility] Name: Abebe Goodman Age: 46 yrs Sex: Male : 1970 Arrival Date: 12/02/2016 Time: 03:28 Bed OBSERVATION Private MD: Ashli Bullard Disposition: 12/02/16 10:26 Discharged to Home/Self Care. Impression: Chest pain, unspecified. - Condition is Stable. - Discharge Instructions: Angina Pectoris, Nonspecific Chest Pain, Chest Wall Pain, Nonspecific Chest Pain, [id number]. - Prescriptions for Aspirin 81 mg - take 1 tablet by ORAL route once daily; 90 tablet. - Medication Reconciliation, Local Pharmacy Hours form. - Follow up: Ruy Henry; When: Call to arrange an appointment. Follow up: Ashli Bullard MD; When: Call to arrange an appointment. - Problem is an acute exacerbation. - Symptoms are resolved. Historical: - Allergies: No known drug Allergies; - Home Meds: 1. Crestor Oral once daily 2. Flomax Oral once daily 3. Nexium Oral once daily - PMHx: GERD; Hypercholesterolemia; - PSHx: Ablation, Cardiac; Shoulder Arthroplasty, Left; Shoulder Arthroplasty. Right; Hernia repair; Appendectomy; - Social history: Smoking status: Patient states former smoker of tobacco. No barriers to communication noted, The patient speaks fluent Omani, Speaks appropriately for age. - Family history: Not pertinent. - : The pt / caregiver states he / she is not on anticoagulants. Home medication list is obtained from the patient. - Exposure Risk Screening:: None identified. Vital Signs: 12/02 03:41 BP 111 / 72; Pulse 63; Resp 18; Temp 98.5; Pulse Ox 98% on R/A; Weight 92.99 kg / nn1 205.01 lbs (R); Height 6 ft. 1 in. (185.42 cm); Pain 5/10; 03:53 Pulse 58 MON; Pulse Ox 97% ; nn1 03:54 BP 111 / 71 (auto/); nn1 04:08 Pulse 52 MON; Pulse Ox 98% ; nn1 04:09 BP 116 / 75 (auto/); nn1 04:23 Pulse 60 MON; Pulse Ox 97% ; nn1 04:24 BP 114 / 72 (auto/); nn1 04:35 Pulse 70 MON; Pulse Ox 97% ; nn1 04:38 Pulse 54 MON; nn1 04:39 BP 117 / 71 (auto/); nn1 04:53 Pulse 58 MON; Pulse Ox 95% ; nn1 04:54 BP 111 / 70 (auto/); nn1 05:08 Pulse 50 MON; Pulse Ox 95% ; nn1 05:09 BP 114 / 72 (auto/); nn1 05:23 Pulse 50 MON; Pulse Ox 96% ; nn1 05:24 BP 116 / 71 (auto/); nn1 05:38 Pulse 48 MON; Pulse Ox 97% ; nn1 05:39 BP 117 / 73 (auto/); nn1 05:54 BP 117 / 75 (auto/); nn1 05:54 Pulse 60 MON; Pulse Ox 96% ; nn1 06:09 Pulse 76 MON; nn1 06:09 BP 125 / 83 (auto/); nn1 06:12 Pulse 76 MON; Pulse Ox 96% ; nn1 06:24 BP 112 / 72 (auto/); nn1 06:24 Pulse 48 MON; Pulse Ox 96% ; nn1 06:39 BP 113 / 70 (auto/); nn1 06:39 Pulse 50 MON; Pulse Ox 95% ; nn1 06:54 BP 115 / 76 (auto/); jjr 06:54 Pulse 46 MON; Resp 18; Pulse Ox 97% on R/A; jjr 07:54 BP 107 / 54 (auto/); kc3 08:00 Pulse 56 MON; Pulse Ox 97% ; kc3 08:20 Pulse 80 MON; Pulse Ox 97% ; kc3 08:54 BP 125 / 72 (auto/); kc3 08:54 Pulse 68 MON; kc3 09:54 BP 121 / 72 (auto/); kc3 09:54 Pulse 60 MON; kc3 11:03 BP 127 / 74; Pulse 82; Resp 20; Temp 97.4(O); Pulse Ox 98% on R/A; Pain 0/10; kcs 03:41 Body Mass Index 27.05 (92.99 kg, 185.42 cm) nn1 MDM: 03:31 ECG WITH READING ER PHYS+CARDIAG ordered. EDMS 04:02 Door Frame Assembler Machine/Pulse Ox/q 30 min VS ordered. mm11 04:02 IV Saline Lock ordered. mm11 04:02 Rhythm Strip to chart ordered. mm11 04:02 Undress patient appropriately for examination ordered. mm11 04:02 morphine 4 mg IVP every 30 minutes; Document pain score/vitals after each dose (Hold if mm11 SBP < 90mmHg) x2 ordered. 04:02 Ondansetron 4 mg IVP once ordered. mm11 04:03 Basic Metabolic Profile Ordered. EDMS 04:03 CBC with Diff Ordered. EDMS 04:03 Cardiac Injury Profile Ordered. EDMS 04:03 D-Dimer Quant Ordered. EDMS 04:03 Troponin Ordered. EDMS 04:04 Chest, 2 View (pa\E\lat) Ordered. EDMS 04:18 Financial registration complete. hs2 04:18 [facility] [place] Agreement was scanned into [employer] and attached to record. hs2 04:43 Dilaudid - HYDROmorphone 0.5 mg IVP once ordered. mm11 05:10 Basic Metabolic Profile Reviewed. mm11 05:10 CBC with Diff Reviewed. mm11 05:10 Cardiac Injury Profile Reviewed. mm11 05:10 D-Dimer Quant Reviewed. mm11 05:10 Troponin Reviewed. mm11 05:54 Dilaudid - HYDROmorphone 0.5 mg IVP once ordered. mm11 06:53 Chest, 2 View (pa\E\lat) Reviewed. mm11 07:24 Repeat EKG (put time details section) ordered. mm11 07:24 Redraw CIP &Troponin (put time in details section) ordered. mm11 07:28 REGULAR+DIET ordered. EDMS 07:28 Repeat EKG (put time details section) complete. deg 07:28 Redraw CIP &Troponin (put time in details section) complete. deg 07:29 ECG WITH READING ER PHYS ordered. EDMS 07:30 CARDIAC MARKER PANEL Ordered. EDMS 10:24 CARDIAC MARKER PANEL Reviewed. sd1 13:27 T-Sheet-- Draft Copy was scanned into [employer] and attached to record. gb 13:27 ECG/EKG was scanned into [employer] and attached to record. gb 13:27 Rhythm Strip was scanned into [employer] and attached to record. gb 12/03 09:07 PCR was scanned into [employer] and attached to record. gb Administered Medications: 12/02 04:09 Drug: Ondansetron 4 mg [ondansetron HCl 2 mg/mL intravenous solution (2 mL)] Route: nn1 IVP; Site: left antecubital; 04:10 Drug: morphine 4 mg [morphine 4 mg/mL intravenous cartridge (1 mL)] Route: IVP; Site: nn1 left antecubital; 04:51 Drug: Dilaudid - HYDROmorphone 0.5 mg [hydromorphone 1 mg/mL injection syringe (0.5 nn1 mL)] Route: IVP; Site: left antecubital; 06:09 Drug: Dilaudid - HYDROmorphone 0.5 mg [hydromorphone 1 mg/mL injection syringe (0.5 nn1 mL)] Route: IVP; Site: left antecubital; Signatures: Dispatcher [employer] EDMS Monalisa Davila MD MD sd1 Merry Lawler, RN RN kcs Roslyn Potter, Stereotyper Helper Unit deg Aria Oquendo, Reg Reg gb Eddie Castillo, DO mm11 Chrystal Jane RN RN nn1 Elif Mora RN RN kc3 Charlee Cordova, Reg Reg hs2 The chart was reviewed and I authenticate all verbal orders and agree with the evaluation and treatment provided.Attachments: 04:18 [facility] [place] Agreement hs2 13:27 T-Sheet-- Draft Copy gb 13:27 ECG/EKG gb Chart Complete MTDD
--- NOTE | 2016-12-04 12:09 | EDDOCDS ---
Physician Documentation [facility] Name: Abebe Goodman Age: 46 yrs Sex: Male : 1970 Arrival Date: 12/02/2016 Time: 03:28 Bed OBSERVATION Private MD: Ashli Bullard Disposition: 12/02/16 10:26 Discharged to Home/Self Care. Impression: Chest pain, unspecified. - Condition is Stable. - Discharge Instructions: Angina Pectoris, Nonspecific Chest Pain, Chest Wall Pain, Nonspecific Chest Pain, [id number]. - Prescriptions for Aspirin 81 mg - take 1 tablet by ORAL route once daily; 90 tablet. - Medication Reconciliation, Local Pharmacy Hours form. - Follow up: Ruy Henry; When: Call to arrange an appointment. Follow up: Ashli Bullard MD; When: Call to arrange an appointment. - Problem is an acute exacerbation. - Symptoms are resolved. Historical: - Allergies: No known drug Allergies; - Home Meds: 1. Crestor Oral once daily 2. Flomax Oral once daily 3. Nexium Oral once daily - PMHx: GERD; Hypercholesterolemia; - PSHx: Ablation, Cardiac; Shoulder Arthroplasty, Left; Shoulder Arthroplasty. Right; Hernia repair; Appendectomy; - Social history: Smoking status: Patient states former smoker of tobacco. No barriers to communication noted, The patient speaks fluent Argentine, Speaks appropriately for age. - Family history: Not pertinent. - : The pt / caregiver states he / she is not on anticoagulants. Home medication list is obtained from the patient. - Exposure Risk Screening:: None identified. Vital Signs: 12/02 03:41 BP 111 / 72; Pulse 63; Resp 18; Temp 98.5; Pulse Ox 98% on R/A; Weight 92.99 kg / nn1 205.01 lbs (R); Height 6 ft. 1 in. (185.42 cm); Pain 5/10; 03:53 Pulse 58 MON; Pulse Ox 97% ; nn1 03:54 BP 111 / 71 (auto/); nn1 04:08 Pulse 52 MON; Pulse Ox 98% ; nn1 04:09 BP 116 / 75 (auto/); nn1 04:23 Pulse 60 MON; Pulse Ox 97% ; nn1 04:24 BP 114 / 72 (auto/); nn1 04:35 Pulse 70 MON; Pulse Ox 97% ; nn1 04:38 Pulse 54 MON; nn1 04:39 BP 117 / 71 (auto/); nn1 04:53 Pulse 58 MON; Pulse Ox 95% ; nn1 04:54 BP 111 / 70 (auto/); nn1 05:08 Pulse 50 MON; Pulse Ox 95% ; nn1 05:09 BP 114 / 72 (auto/); nn1 05:23 Pulse 50 MON; Pulse Ox 96% ; nn1 05:24 BP 116 / 71 (auto/); nn1 05:38 Pulse 48 MON; Pulse Ox 97% ; nn1 05:39 BP 117 / 73 (auto/); nn1 05:54 BP 117 / 75 (auto/); nn1 05:54 Pulse 60 MON; Pulse Ox 96% ; nn1 06:09 Pulse 76 MON; nn1 06:09 BP 125 / 83 (auto/); nn1 06:12 Pulse 76 MON; Pulse Ox 96% ; nn1 06:24 BP 112 / 72 (auto/); nn1 06:24 Pulse 48 MON; Pulse Ox 96% ; nn1 06:39 BP 113 / 70 (auto/); nn1 06:39 Pulse 50 MON; Pulse Ox 95% ; nn1 06:54 BP 115 / 76 (auto/); jjr 06:54 Pulse 46 MON; Resp 18; Pulse Ox 97% on R/A; jjr 07:54 BP 107 / 54 (auto/); kc3 08:00 Pulse 56 MON; Pulse Ox 97% ; kc3 08:20 Pulse 80 MON; Pulse Ox 97% ; kc3 08:54 BP 125 / 72 (auto/); kc3 08:54 Pulse 68 MON; kc3 09:54 BP 121 / 72 (auto/); kc3 09:54 Pulse 60 MON; kc3 11:03 BP 127 / 74; Pulse 82; Resp 20; Temp 97.4(O); Pulse Ox 98% on R/A; Pain 0/10; kcs 03:41 Body Mass Index 27.05 (92.99 kg, 185.42 cm) nn1 MDM: 03:31 ECG WITH READING ER PHYS+CARDIAG ordered. EDMS 04:02 Biogeographer/Pulse Ox/q 30 min VS ordered. mm11 04:02 IV Saline Lock ordered. mm11 04:02 Rhythm Strip to chart ordered. mm11 04:02 Undress patient appropriately for examination ordered. mm11 04:02 morphine 4 mg IVP every 30 minutes; Document pain score/vitals after each dose (Hold if mm11 SBP < 90mmHg) x2 ordered. 04:02 Ondansetron 4 mg IVP once ordered. mm11 04:03 Basic Metabolic Profile Ordered. EDMS 04:03 CBC with Diff Ordered. EDMS 04:03 Cardiac Injury Profile Ordered. EDMS 04:03 D-Dimer Quant Ordered. EDMS 04:03 Troponin Ordered. EDMS 04:04 Chest, 2 View (pa\E\lat) Ordered. EDMS 04:18 Financial registration complete. hs2 04:18 [facility] Payment Agreement was scanned into [employer] and attached to record. hs2 04:43 Dilaudid - HYDROmorphone 0.5 mg IVP once ordered. mm11 05:10 Basic Metabolic Profile Reviewed. mm11 05:10 CBC with Diff Reviewed. mm11 05:10 Cardiac Injury Profile Reviewed. mm11 05:10 D-Dimer Quant Reviewed. mm11 05:10 Troponin Reviewed. mm11 05:54 Dilaudid - HYDROmorphone 0.5 mg IVP once ordered. mm11 06:53 Chest, 2 View (pa\E\lat) Reviewed. mm11 07:24 Repeat EKG (put time details section) ordered. mm11 07:24 Redraw CIP &Troponin (put time in details section) ordered. mm11 07:28 REGULAR+DIET ordered. EDMS 07:28 Repeat EKG (put time details section) complete. deg 07:28 Redraw CIP &Troponin (put time in details section) complete. deg 07:29 ECG WITH READING ER PHYS ordered. EDMS 07:30 CARDIAC MARKER PANEL Ordered. EDMS 10:24 CARDIAC MARKER PANEL Reviewed. sd1 13:27 T-Sheet-- Draft Copy was scanned into [employer] and attached to record. gb 13:27 ECG/EKG was scanned into [employer] and attached to record. gb 13:27 Rhythm Strip was scanned into [employer] and attached to record. gb 12/03 09:07 PCR was scanned into [employer] and attached to record. gb Administered Medications: 12/02 04:09 Drug: Ondansetron 4 mg [ondansetron HCl 2 mg/mL intravenous solution (2 mL)] Route: nn1 IVP; Site: left antecubital; 04:10 Drug: morphine 4 mg [morphine 4 mg/mL intravenous cartridge (1 mL)] Route: IVP; Site: nn1 left antecubital; 04:51 Drug: Dilaudid - HYDROmorphone 0.5 mg [hydromorphone 1 mg/mL injection syringe (0.5 nn1 mL)] Route: IVP; Site: left antecubital; 06:09 Drug: Dilaudid - HYDROmorphone 0.5 mg [hydromorphone 1 mg/mL injection syringe (0.5 nn1 mL)] Route: IVP; Site: left antecubital; Signatures: Dispatcher [employer] EDMS Monalisa Davila MD MD sd1 Merry Lawler, RN RN kcs Roslyn Potter, [employer] Blind Mechanic Unit deg Aria Oquendo, Reg Reg gb Eddie Castillo, DO mm11 Chrystal Jane RN RN nn1 Elif Mora RN RN kc3 Charele Cordova, Reg Reg hs2 The chart was reviewed and I authenticate all verbal orders and agree with the evaluation and treatment provided.Attachments: 04:18 [facility] Payment Agreement hs2 13:27 T-Sheet-- Draft Copy gb 13:27 ECG/EKG gb Chart Complete MTDD
== END 2016-12-02 11:07 | disposition home or self-care (01) ==
LOC: M ED 03:28
DX: R07.9 Chest pain, unspecified (principal); K21.9 Gastro-esophageal reflux disease without esophagitis; E78.00 Pure hypercholesterolemia, unspecified; Z87.891 Personal history of nicotine dependence; Z79.899 Other long term (current) drug therapy
CPT/HCPCS: 36415; 71020; 80048; 82550; 82553; 85025; 85379; 93005; 93041; 96374; 96375; 96376; 99284; J1170; J2405

== ENCOUNTER → 2017-06-07 | Outpatient (REF) | payer BC ==
[~2017-06-07] MED LIST: CYCL10TA PO; ESOM1CAP5 PO; ROSU20TA PO; TAMSULOSIN PO; TRAM50TA2 PO
== END ==
LOC: M SMT 13:01
PROVIDERS: ATTEND Urology
DX: R30.0 Dysuria (principal); N40.1 Benign prostatic hyperplasia with lower urinary tract symptoms

== ENCOUNTER 2017-07-17 08:40 | Emergency (ER) | payer BC ==
[~2017-07-17] VITALS: Ht 185.4 cm; Wt 93.2 kg
[2017-07-17] MEDS ORDERED: ONDANSETRON 4MG/2ML VIAL (J2405) IV ONE (09:00)
[2017-07-17] MEDS ORDERED: ASPIRIN 81 MG CHEW TABLET PO ONE (09:00)
[2017-07-17] MEDS ORDERED: NS 500 ML IV ONE (09:00)
[2017-07-17 09:04] LABS: BASO % 0.4 % (0.0-1.0); EOS # 0.3 K/mm3 (0.0-0.50); EOS % 5.9 % (0.0-3.0); LARGE UNSTAINED CELL # 0.1 K/mm3 (0.0-0.4); LARGE UNSTAINED CELL % 1.6 % (0.0-4.0); LYMPH # 1.7 K/mm3 (1.5-4.5); LYMPH % 31.7 % (24.0-44.0); MEAN CORPUSCULAR HEMOGLOBIN 31.1 pg (27.0-33.0); MEAN CORPUSCULAR HGB CONC 34.3 g/dl (32.0-36.5); MEAN CORPUSCULAR VOLUME 90.5 fl (80.0-96.0); MONO # 0.5 K/mm3 (0.0-0.8); MONO % 8.8 % (0.0-5.0); NEUTROPHILS # 2.6 K/mm3 (1.8-7.7); NEUTROPHILS % 51.6 % (36.0-66.0); PLATELET COUNT, AUTOMATED 168 k/mm3 (150-450); RED CELL DISTRIBUTION WIDTH 12.6 % (11.5-14.5)
[2017-07-17] MEDS: MORPHINE 4 MG/ML 1ML SYRINGE IV PRN ×2 (09:05→09:26)
[2017-07-17 09:10] LABS: INR 0.87
[2017-07-17] MEDS ORDERED: TRAM50TA2 PO (09:17)
[2017-07-17] MEDS ORDERED: TAMSULOSIN PO (09:17)
[2017-07-17] MEDS ORDERED: CYCL10TA PO (09:17)
[2017-07-17] MEDS ORDERED: ESOM1CAP5 PO (09:17)
[2017-07-17] MEDS ORDERED: ROSU20TA PO (09:17)
[2017-07-17 09:27] LABS: ALBUMIN 4.1 GM/DL (3.2-5.2); ALBUMIN/GLOBULIN RATIO 1.24 (1.00-1.93); ALKALINE PHOSPHATASE 66 U/L (45-117); ALT/SGPT 43 U/L (12-78); ANION GAP 7 MEQ/L (8-16); AST/SGOT 23 U/L (15-37); BILIRUBIN,DIRECT 0.1 MG/DL (0.0-0.2); BILIRUBIN,TOTAL 0.7 MG/DL (0.2-1.0); BLOOD UREA NITROGEN 16 MG/DL (7-18); CALCIUM LEVEL 9.1 MG/DL (8.5-10.1); CARBON DIOXIDE LEVEL 29 MEQ/L (21-32); CHLORIDE LEVEL 107 MEQ/L (98-107); CREATININE FOR GFR 1.02 MG/DL (0.70-1.30); FREE T4 0.92 NG/DL (0.76-1.46); GLOMERULAR FILTRATION RATE > 60.0 (>60); GLUCOSE, FASTING 80 MG/DL (70-105); POTASSIUM SERUM 4.1 MEQ/L (3.5-5.1); SODIUM LEVEL 143 MEQ/L (136-145); TOTAL PROTEIN 7.4 GM/DL (6.4-8.2)
--- NOTE | 2017-07-17 09:32 | REP ---
Clinical: Chest pain . Comparison: 12/02/2016 . Findings: The mediastinum and cardiac silhouette are stable and within normal limits for portable technique. The lung barragan are clear without acute consolidation, effusion, or pneumothorax. Skeletal structures are intact. Impression: No acute cardiopulmonary process appreciated. Signed by Kumar Osorio MD 07/17/2017 09:23 A
[2017-07-17] MEDS ORDERED: LORazepam 2 MG/ML VIAL (J2060) IV STA (10:13)
[2017-07-17] MEDS ORDERED: GI COCKTAIL 50ML BTL(HYOSCYAMINE/MAALOX/LIDOCAINE VISCOUS)(1:3:1) PO ONE (10:15)
[2017-07-17] MEDS ORDERED: ISOVUE-370 76% 100ML VIAL (Q9967) As Ordered ONE (10:20)
--- NOTE | 2017-07-17 10:52 | REP ---
Clinical: Acute chest pain. Technique: Axial contrast enhanced images from the thoracic inlet to the upper abdomen using 100 ml Isovue 370 intravenous contrast material with coronal and sagittal re-formations. Findings: Satisfactory enhancement of the pulmonary vasculature is achieved and no filling defects are identified to suggest pulmonary embolus. Thoracic aorta is normal caliber without aneurysm or dissection. Heart and pericardium are normal. Minimal posterior basilar dependent changes are appreciated. Bilateral lung barragan are otherwise clear without acute pulmonary parenchymal consolidation or atelectasis. No pleural effusion/reaction. No pneumothorax. No adenopathy. Impression: No evidence for pulmonary embolus. No acute pleuroparenchymal or mediastinal process. Signed by Kumar Osorio MD 07/17/2017 10:43 A
[2017-07-17] MEDS ORDERED: MORPHINE 4 MG/ML 1ML SYRINGE IV ONE (13:00)
[2017-07-17 15:16] VITALS: BP 123/71
--- NOTE | 2017-07-17 19:52 | ECGEPIP ---
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
--- NOTE | 2017-07-17 19:52 | ECGEPIP ---
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
--- NOTE | 2017-07-17 19:54 | ECGEPIP ---
Stationary ECG Study 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
== END 2017-07-17 15:20 | disposition home or self-care (01) ==
LOC: M ED 08:40
DX: R07.9 Chest pain, unspecified (principal); Z72.0 Tobacco use
CPT/HCPCS: 36415; 71010; 71275; 80048; 80076; 82550; 82553; 83690; 84439; 84443; 85025; 85379; 85610; 85730; 93005; 93041; 94760; 96361; 96374; 96375; 96376; 99285; J2060; J2405; Q9967

== ENCOUNTER → 2017-09-29 | Outpatient (REF) | payer BC | LOC: M SMT 16:50 | PROVIDERS: ATTEND Urology | DX: R30.0 Dysuria (principal) ==

== ENCOUNTER → 2017-11-03 | Outpatient (CLI) | payer BC ==
--- NOTE | 2017-11-03 14:26 | REP ---
MRI LUMBAR SPINE WITHOUT CONTRAST: HISTORY: Low back pain, bilateral hip pain left greater than right. Numbness and tingling. TECHNIQUE: Sagittal and axial T1 and T2-weighted scans are acquired in the usual fashion with and without fat saturation. Sequences include spin echo, turbo spin echo, and STIR imaging sequences. MRI FINDINGS: Lumbar vertebral body heights are preserved. Alignment is normal. There is decreased disc space height and signal intensity at the L3-4 and L4-5 intervertebral disc level consistent with degenerative disc disease at these levels. There are reactive marrow changes on either side of the L4-5 disc. Cortical and medullary bone signal intensity are otherwise normal. Conus medullaris is normal in position and appearance at the L1-2 disc. At the L2-L3, axial and sagittal images demonstrate mild diffuse disc bulging indenting the ventral margin of the thecal sac. No central canal stenosis is seen. No neural foraminal encroachment is noted. At L3-4, there is mild diffuse disc bulging as well. Canal size is borderline. There is minimal ligamentum flavum and facet hypertrophy. The mid sagittal AP dimension of the thecal sac is 11 mm. No neural foraminal narrowing is seen. At L4-L5, there is a moderate-sized right posterior and right foraminal disc protrusion compressing the right ventral aspect of the thecal sac and producing right-sided neural foraminal narrowing. There is also a left foraminal disc protrusion, which is somewhat smaller encroaching on the left neural foramen. There is central canal stenosis at L4-5 which is contributed to by the disc bulge as well as ligamentum flavum hypertrophy and some facet hypertrophy. At L5-S1, there is facet hypertrophy bilaterally but no other significant finding. IMPRESSION: Degenerative spondylosis changes. The dominant abnormality is at L4-5 where there is central canal stenosis and bilateral foraminal disc protrusions. The right disc protrusion is larger than the left. Signed by Abebe Peterson MD 11/03/2017 04:00 P
== END ==
LOC: M RAD 10:25
PROVIDERS: ATTEND Orthopaedic Surgery
DX: M54.5 Low back pain (principal); M51.36 Other intervertebral disc degeneration, lumbar region

== ENCOUNTER 2018-01-12 06:41 | Emergency (ER) | payer BC ==
[2018-01-12] MEDS: ASPIRIN 81 MG CHEW TABLET PO (07:15)
[2018-01-12 07:20] LABS: BASO % 0.3 % (0.0-1.0); EOS # 0.2 10^3/uL (0.0-0.50); EOS % 3.5 % (0.0-3.0); HEMOGLOBIN 14.8 g/dl (14.0-18.0); LYMPH # 1.5 10^3/uL (1.5-4.5); LYMPH % 24.5 % (24.0-44.0); MEAN CORPUSCULAR HEMOGLOBIN 30.2 pg (27.0-33.0); MEAN CORPUSCULAR HGB CONC 33.6 g/dl (32.0-36.5); MEAN CORPUSCULAR VOLUME 89.8 fl (80.0-96.0); MONO # 0.7 10^3/uL (0.0-0.8); MONO % 11.3 % (0.0-5.0); NEUTROPHILS # 3.7 10^3/uL (1.8-7.7); NEUTROPHILS % 60.4 % (36.0-66.0); PLATELET COUNT, AUTOMATED 202 10^3/uL (150-450); RED CELL DISTRIBUTION WIDTH 12.7 % (11.5-14.5); WHITE BLOOD COUNT 6.1 10^3/uL (4.0-10.0)
[2018-01-12 07:30] LABS: INR 0.84; PROTHROMBIN TIME 11.5 SECONDS (12.4-14.5)
[2018-01-12 07:38] LABS: ALBUMIN 3.9 GM/DL (3.2-5.2); ALBUMIN/GLOBULIN RATIO 1.18 (1.00-1.93); ALKALINE PHOSPHATASE 60 U/L (45-117); ALT/SGPT 33 U/L (12-78); ANION GAP 5 MEQ/L (8-16); AST/SGOT 24 U/L (7-37); BILIRUBIN,DIRECT < 0.1 MG/DL (0.0-0.2); BILIRUBIN,TOTAL 0.3 MG/DL (0.2-1.0); BLOOD UREA NITROGEN 18 MG/DL (7-18); CALCIUM LEVEL 8.7 MG/DL (8.5-10.1); CARBON DIOXIDE LEVEL 29 MEQ/L (21-32); CHLORIDE LEVEL 109 MEQ/L (98-107); CPK CREATINE PHOSPHOKINASE 113 U/L (39-308); CREATININE FOR GFR 1.01 MG/DL (0.70-1.30); GLOMERULAR FILTRATION RATE > 60.0 (>60); GLUCOSE, FASTING 92 MG/DL (70-100); LIPASE 187 U/L (73-393); POTASSIUM SERUM 4.2 MEQ/L (3.5-5.1); SODIUM LEVEL 143 MEQ/L (136-145); TOTAL PROTEIN 7.2 GM/DL (6.4-8.2); TROPONIN I < 0.02 NG/ML (< 0.10)
[2018-01-12] MEDS: MORPHINE 2 MG/ML 1ML SYRINGE (J2270) IV (07:39)
[2018-01-12] MEDS: METOCLOPRAMIDE INJ 10MG/2ML VIAL (J2765) IV (07:39)
[2018-01-12 07:44] LABS: MB/CK RELATIVE INDEX 0.88 (< OR =4); NT-PRO BNP 32 PG/ML (<125)
[2018-01-12 13:27] LABS: CPK CREATINE PHOSPHOKINASE 83 U/L (39-308); TROPONIN I < 0.02 NG/ML (< 0.10)
== END 2018-01-12 15:52 | disposition home or self-care (01) ==
LOC: M ED 06:41
DX: R07.9 Chest pain, unspecified (principal); R94.31 Abnormal electrocardiogram [ECG] [EKG]; E78.5 Hyperlipidemia, unspecified; K21.9 Gastro-esophageal reflux disease without esophagitis; F17.210 Nicotine dependence, cigarettes, uncomplicated; Z98.890 Other specified postprocedural states; Z82.49 Family history of ischemic heart disease and other diseases of the circulatory system
CPT/HCPCS: J2765

== ENCOUNTER → 2018-02-16 | Outpatient (CLI) | payer BC ==
[2018-02-16 10:07] LABS: ANION GAP 5 MEQ/L (8-16); BLOOD UREA NITROGEN 13 MG/DL (7-18); CALCIUM LEVEL 8.7 MG/DL (8.5-10.1); CARBON DIOXIDE LEVEL 31 MEQ/L (21-32); CHLORIDE LEVEL 110 MEQ/L (98-107); CHOLESTEROL LEVEL 158 MG/DL (<200); CHOLESTEROL RISK RATIO 4.157 (<5); CREATININE FOR GFR 0.93 MG/DL (0.70-1.30); GLOMERULAR FILTRATION RATE > 60.0 (>60); GLUCOSE, FASTING 98 MG/DL (70-100); HDL CHOLESTEROL 38 MG/DL (>40); LDL CHOLESTEROL 80.6 MG/DL (<100); NON-HDL-C 120 MG/DL; POTASSIUM SERUM 4.5 MEQ/L (3.5-5.1); SODIUM LEVEL 146 MEQ/L (136-145); TRIGLYCERIDES LEVEL 197 MG/DL (<150)
== END ==
LOC: M LAB 08:56
DX: E78.5 Hyperlipidemia, unspecified (principal)

== ENCOUNTER → 2018-05-09 | Outpatient (REF) | payer BC | LOC: M LAB REF 09:07 | DX: R30.0 Dysuria (principal) | CPT/HCPCS: 87086 ==

== ENCOUNTER 2018-10-02 22:08 | Emergency (ER) | payer BC ==
[2018-10-02] MEDS: AMIODARONE HCL 150 MG in APPROPRIATE DILUENT 1 EA IV ×2 (22:20→22:55)
[2018-10-02] MEDS: NS 1,000 ML IV (22:20)
[2018-10-02] MEDS ORDERED: AMIODARONE 150MG/3ML INJ (J0282) As Ordered (22:24)
[2018-10-02] MEDS ORDERED: AMIODARONE HCL 150 MG/100 ML PREMIXED BAG (NEXTERONE) As Ordered ×2 (22:25→22:38)
[2018-10-02 22:28] LABS: BASO % 0.5 % (0.0-1.0); EOS # 0.2 10^3/uL (0.0-0.50); EOS % 2.8 % (0.0-3.0); HEMATOCRIT 45.1 % (42.0-52.0); HEMOGLOBIN 15.2 g/dl (13.5-17.5); IMMATURE GRANULOCYTE % 0.2 % (0-3.0); LYMPH # 2.3 10^3/uL (1.5-4.5); LYMPH % 34.5 % (24.0-44.0); MEAN CORPUSCULAR HEMOGLOBIN 30.8 pg (27.0-33.0); MEAN CORPUSCULAR HGB CONC 33.7 g/dl (32.0-36.5); MEAN CORPUSCULAR VOLUME 91.3 fl (80.0-96.0); MONO # 0.5 10^3/uL (0.0-0.8); MONO % 7.7 % (0.0-5.0); NEUTROPHILS # 3.6 10^3/uL (1.8-7.7); NEUTROPHILS % 54.3 % (36.0-66.0); PLATELET COUNT, AUTOMATED 180 10^3/uL (150-450); RED BLOOD COUNT 4.94 10^6/uL (4.30-6.10); WHITE BLOOD COUNT 6.5 10^3/uL (4.0-10.0)
[2018-10-02 22:38] LABS: INR 0.93; PROTHROMBIN TIME 12.5 SECONDS (12.1-14.4)
[2018-10-02 22:39] LABS: PARTIAL THROMBOPLASTIN TIME 25.6 SECONDS (25.4-37.6)
[2018-10-02] MEDS ORDERED: METOCLOPRAMIDE INJ 10MG/2ML VIAL (J2765) As Ordered (22:51)
[2018-10-02] MEDS: METOCLOPRAMIDE INJ 10MG/2ML VIAL (J2765) IV (22:53)
[2018-10-02 22:59] LABS: ANION GAP 8 MEQ/L (8-16); BLOOD UREA NITROGEN 15 MG/DL (7-18); CALCIUM LEVEL 8.7 MG/DL (8.5-10.1); CARBON DIOXIDE LEVEL 25 MEQ/L (21-32); CHLORIDE LEVEL 109 MEQ/L (98-107); CPK CREATINE PHOSPHOKINASE 150 U/L (39-308); CREATININE FOR GFR 1.05 MG/DL (0.70-1.30); GLOMERULAR FILTRATION RATE > 60.0 (>60); GLUCOSE, FASTING 187 MG/DL (70-100); MB/CK RELATIVE INDEX 1.13 (< OR =4); POTASSIUM SERUM 3.9 MEQ/L (3.5-5.1); SODIUM LEVEL 142 MEQ/L (136-145); TROPONIN I < 0.02 NG/ML (< 0.10)
[2018-10-02] MEDS: METOPROLOL 5 MG/5 ML VIAL IV ×3 (23:25→23:56)
[2018-10-02] MEDS ORDERED: METOPROLOL 5 MG/5 ML VIAL As Ordered (23:25)
[2018-10-02 23:52] LABS: ALBUMIN 3.7 GM/DL (3.2-5.2); ALBUMIN/GLOBULIN RATIO 1.16 (1.00-1.93); ALKALINE PHOSPHATASE 68 U/L (45-117); ALT/SGPT 50 U/L (12-78); AST/SGOT 29 U/L (7-37); BILIRUBIN,DIRECT < 0.1 MG/DL (0.0-0.2); BILIRUBIN,TOTAL 0.3 MG/DL (0.2-1.0); TOTAL PROTEIN 6.9 GM/DL (6.4-8.2)
[2018-10-03] MEDS: METOPROLOL TART 50 MG TAB PO (00:10)
[2018-10-03] MEDS: FLECAINIDE 50MG TABLET PO ×2 (00:20→07:33)
[2018-10-03] MEDS: ONDANSETRON 4MG/2ML VIAL (J2405) IV (03:11)
[2018-10-03 04:02] LABS: CPK CREATINE PHOSPHOKINASE 125 U/L (39-308); MB/CK RELATIVE INDEX 1.44 (< OR =4); TROPONIN I 0.05 NG/ML (< 0.10)
[2018-10-03] MEDS: NS 1,000 ML IV (05:06)
[2018-10-03] MEDS: ASPIRIN 325 MG TAB PO (05:06)
[2018-10-03] MEDS: CLOPIDOGREL 300 MG TAB (PLAVIX) PO (05:06)
[2018-10-03] MEDS: ATENOLOL 50 MG TAB PO ×2 (07:33→08:47)
[2018-10-03 07:47] LABS: CPK CREATINE PHOSPHOKINASE 109 U/L (39-308); MB/CK RELATIVE INDEX 1.56 (< OR =4); TROPONIN I 0.03 NG/ML (< 0.10)
== END 2018-10-03 10:39 | disposition home or self-care (01) ==
LOC: M ED 22:08
DX: I48.91 Unspecified atrial fibrillation (principal); I45.6 Pre-excitation syndrome
CPT/HCPCS: J2405

== ENCOUNTER 2018-10-08 19:52 | Emergency (ER) | payer BC ==
[2018-10-08 20:26] LABS: KETONE, URINE AUTO RFX NEGATIVE (NEGATIVE); LEUKOCYTE ESTERASE UR AUTO RFX NEGATIVE (NEGATIVE); NITRITE, URINE AUTO RFX NEGATIVE (NEGATIVE); RBC, URINE AUTO RFX 50 /HPF (0-3); SPECIFIC GRAVITY UR AUTO RFX 1.003 (1.002-1.035); SQUAM EPITHELIAL CELL UR AURFX 0 /HPF (0-6); WBC, URINE AUTO RFX 4 /HPF (0-3)
[2018-10-08 20:59] LABS: BASO % 0.4 % (0.0-1.0); EOS # 0.2 10^3/uL (0.0-0.50); EOS % 2.8 % (0.0-3.0); HEMATOCRIT 43.3 % (42.0-52.0); HEMOGLOBIN 14.5 g/dl (13.5-17.5); IMMATURE GRANULOCYTE % 0.3 % (0-3.0); LYMPH # 2.5 10^3/uL (1.5-4.5); LYMPH % 36.3 % (24.0-44.0); MEAN CORPUSCULAR HEMOGLOBIN 30.6 pg (27.0-33.0); MEAN CORPUSCULAR HGB CONC 33.5 g/dl (32.0-36.5); MEAN CORPUSCULAR VOLUME 91.4 fl (80.0-96.0); MONO # 0.7 10^3/uL (0.0-0.8); MONO % 10.6 % (0.0-5.0); NEUTROPHILS # 3.4 10^3/uL (1.8-7.7); NEUTROPHILS % 49.6 % (36.0-66.0); PLATELET COUNT, AUTOMATED 212 10^3/uL (150-450); RED BLOOD COUNT 4.74 10^6/uL (4.30-6.10); RED CELL DISTRIBUTION WIDTH 12.6 % (11.5-14.5); WHITE BLOOD COUNT 6.8 10^3/uL (4.0-10.0)
[2018-10-08] MEDS ORDERED: ISOVUE-370 76% 100ML VIAL (Q9967) As Ordered (21:12)
[2018-10-08 21:20] LABS: ANION GAP 7 MEQ/L (8-16); BLOOD UREA NITROGEN 14 MG/DL (7-18); CALCIUM LEVEL 8.6 MG/DL (8.5-10.1); CARBON DIOXIDE LEVEL 27 MEQ/L (21-32); CHLORIDE LEVEL 108 MEQ/L (98-107); CREATININE FOR GFR 1.38 MG/DL (0.70-1.30); GLOMERULAR FILTRATION RATE 58.3 (>60); GLUCOSE, FASTING 102 MG/DL (70-100); POTASSIUM SERUM 4.2 MEQ/L (3.5-5.1); SODIUM LEVEL 142 MEQ/L (136-145)
== END 2018-10-08 22:47 | disposition home or self-care (01) ==
LOC: M ED 19:52
DX: R31.0 Gross hematuria (principal); N40.0 Benign prostatic hyperplasia without lower urinary tract symptoms; I48.91 Unspecified atrial fibrillation
CPT/HCPCS: Q9967

== ENCOUNTER → 2018-10-16 | Outpatient (CLI) | payer BC ==
[2018-10-16 13:53] LABS: PSA SCREENING 2.1 NG/ML (< 4.0)
== END ==
LOC: M SMT 10:37
DX: Z12.5 Encounter for screening for malignant neoplasm of prostate (principal)
CPT/HCPCS: G0103

== ENCOUNTER → 2018-10-31 | Outpatient (REF) | payer BC ==
[~2018-10-31] MED LIST changes: +AMOX875T; +ASPI325T25 PO; +ATEN50TA2 PO; +ESCI10TA2; +FLEC1TAB PO; -ROSU20TA PO; +ROSU20TA4 PO
[2018-10-31 15:29] LABS: APPEARANCE, URINE CLEAR (CLEAR); BACTERIA, URINE AUTO NEGATIVE (NEGATIVE); BILIRUBIN, URINE AUTO NEGATIVE (NEGATIVE); BLOOD, URINE BLOOD NEGATIVE (NEGATIVE); COLOR, URINE YELLOW (YELLOW); GLUCOSE, URINE (UA) AUTO NEGATIVE (NEGATIVE); KETONE, URINE AUTO NEGATIVE (NEGATIVE); LEUKOCYTE ESTERASE, URINE AUTO NEGATIVE (NEGATIVE); NITRITE, URINE AUTO NEGATIVE (NEGATIVE); PROTEIN, URINE AUTO NEGATIVE (NEGATIVE); RBC, URINE AUTO 0 /HPF (0-3); SPECIFIC GRAVITY URINE AUTO 1.017 (1.002-1.035); SQUAMOUS EPITHELIAL CELL UR AU 0 /HPF (0-6); UROBILINOGEN, URINE AUTO 0.2 mg/dL (0.0-2.0); WBC, URINE AUTO 0 /HPF (0-3)
== END ==
LOC: M SMT 13:52
PROVIDERS: ATTEND Nurse Practitioner Family
DX: R31.0 Gross hematuria (principal)

== ENCOUNTER 2019-01-27 13:09 | Emergency (ER) | payer BC ==
[~2019-01-27] VITALS: Ht 185.4 cm; Wt 99.1 kg
[2019-01-27] MEDS ORDERED: MORPHINE 4 MG/ML 1ML VIAL/SYRINGE (J2270) IV ONE (13:30)
[2019-01-27] MEDS ORDERED: PROMETHAZINE INJ 25 MG/ML VIAL (J2550) IV ONE (13:30)
[2019-01-27 13:48] LABS: BASO % 0.3 % (0.0-1.0); EOS # 0.2 10^3/uL (0.0-0.50); EOS % 3.1 % (0.0-3.0); HEMATOCRIT 43.2 % (42.0-52.0); HEMOGLOBIN 14.1 g/dl (13.5-17.5); LYMPH # 1.5 10^3/uL (1.5-4.5); LYMPH % 25.7 % (24.0-44.0); MEAN CORPUSCULAR HEMOGLOBIN 30.3 pg (27.0-33.0); MEAN CORPUSCULAR HGB CONC 32.6 g/dl (32.0-36.5); MEAN CORPUSCULAR VOLUME 92.9 fl (80.0-96.0); MONO # 0.6 10^3/uL (0.0-0.8); MONO % 10.3 % (0.0-5.0); NEUTROPHILS # 3.5 10^3/uL (1.8-7.7); NEUTROPHILS % 60.3 % (36.0-66.0); PLATELET COUNT, AUTOMATED 186 10^3/uL (150-450); RED BLOOD COUNT 4.65 10^6/uL (4.30-6.10); WHITE BLOOD COUNT 5.7 10^3/uL (4.0-10.0)
[2019-01-27 14:15] LABS: BLOOD UREA NITROGEN 15 MG/DL (7-18); CALCIUM LEVEL 8.8 MG/DL (8.5-10.1); CARBON DIOXIDE LEVEL 29 MEQ/L (21-32); CHLORIDE LEVEL 108 MEQ/L (98-107); CPK CREATINE PHOSPHOKINASE 157 U/L (39-308); GLOMERULAR FILTRATION RATE > 60.0 (>56); GLUCOSE, FASTING 64 MG/DL (70-100); MB/CK RELATIVE INDEX 1.08 (< OR =4); NT-PRO BNP 34 PG/ML (<125); POTASSIUM SERUM 4.6 MEQ/L (3.5-5.1); SODIUM LEVEL 142 MEQ/L (136-145); TROPONIN I < 0.02 NG/ML (< 0.10)
[2019-01-27] MEDS ORDERED: ISOVUE-370 76% 125ML VIAL (Q9967 PER ML) As Ordered ONE (14:24)
--- NOTE | 2019-01-27 15:14 | REP ---
CT ANGIO CHEST: HISTORY: Rule out PE. CONTRAST: Isovue 370, 75 mL. COMPARISON: 07/17/2017. There are no filling defects in the main, right and left pulmonary arteries or other branches. The lungs are clear. Very small bilateral pleural effusions are present. The heart is normal in size. There is no aneurysm. There is no mediastinal mass. Minimal degenerative change is present in the spine. IMPRESSION: 1. There is no pulmonary embolus. 2. Small bilateral pleural effusions. Electronically Signed by Austen Smith MD 01/27/2019 03:22 P
[2019-01-27 16:29] LABS: CPK CREATINE PHOSPHOKINASE 150 U/L (39-308); MB/CK RELATIVE INDEX 1.13 (< OR =4); TROPONIN I < 0.02 NG/ML (< 0.10)
[2019-01-27] MEDS ORDERED: NS 1,000 ML IV ONE (16:45)
[2019-01-27 18:45] VITALS: BP 110/67
--- NOTE | 2019-01-28 18:41 | ECGEPIP ---
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
--- NOTE | 2019-01-28 18:43 | ECGEPIP ---
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
--- NOTE | 2019-01-29 14:03 | ED PDOC ---
Post-Departure Follow-Up matthew [facility] and mendy faxed formal report of cxr for fu thonyg Jaguar Neville MD Jan 29, 2019 14:03
== END 2019-01-27 18:45 | disposition home or self-care (01) ==
LOC: M ED 13:09
DX: R07.9 Chest pain, unspecified (principal); R11.2 Nausea with vomiting, unspecified; R61 Generalized hyperhidrosis; I45.6 Pre-excitation syndrome; I48.91 Unspecified atrial fibrillation; I47.1 Supraventricular tachycardia; E78.5 Hyperlipidemia, unspecified; J44.9 Chronic obstructive pulmonary disease, unspecified; F32.9 Major depressive disorder, single episode, unspecified; F41.9 Anxiety disorder, unspecified; Z79.899 Other long term (current) drug therapy; Z79.82 Long term (current) use of aspirin
CPT/HCPCS: 71275; 80048; 82550; 82553; 83880; 84484; 85025; 93005; 93041; 94760; 96374; 96375; 99285; J2270; Q9967

== ENCOUNTER 2019-02-21 01:45 | Inpatient (IN) | payer BC ==
[~2019-02-21] VITALS: Ht 185.4 cm; Wt 97.0 kg
[~2019-02-21 01:45] MED LIST changes: +ASPI-255 PO; -ASPI325T25 PO
[2019-02-21] MEDS ORDERED: XARE1TAB PO (01:52)
[2019-02-21] MEDS ORDERED: NS 1,000 ML IV SCH (02:13)
[2019-02-21] MEDS ORDERED: MORPHINE 4 MG/ML 1ML VIAL/SYRINGE (J2270) IV ONE ×2 (02:15→03:30)
[2019-02-21 02:17] LABS: BASO % 0.1 % (0.0-1.0); EOS % 0.1 % (0.0-3.0); HEMATOCRIT 45.1 % (42.0-52.0); HEMOGLOBIN 15.3 g/dl (13.5-17.5); LYMPH # 0.9 10^3/uL (1.5-4.5); LYMPH % 6.3 % (24.0-44.0); MEAN CORPUSCULAR HGB CONC 33.9 g/dl (32.0-36.5); MEAN CORPUSCULAR VOLUME 91.5 fl (80.0-96.0); MONO # 0.8 10^3/uL (0.0-0.8); MONO % 5.6 % (0.0-5.0); NEUTROPHILS # 12.4 10^3/uL (1.8-7.7); NEUTROPHILS % 87.6 % (36.0-66.0); PLATELET COUNT, AUTOMATED 211 10^3/uL (150-450); RED BLOOD COUNT 4.93 10^6/uL (4.30-6.10); WHITE BLOOD COUNT 14.2 10^3/uL (4.0-10.0)
[2019-02-21] MEDS ORDERED: ONDANSETRON 4MG/2ML VIAL (J2405) As Ordered ONE (02:25)
[2019-02-21] MEDS ORDERED: ONDANSETRON 4MG/2ML VIAL (J2405) IV ONE ×2 (02:30→03:30)
[2019-02-21 02:33] LABS: INR 1.4; PROTHROMBIN TIME 17.4 SECONDS (12.1-14.4)
[2019-02-21 02:39] LABS: ALT/SGPT 43 U/L (12-78); BLOOD UREA NITROGEN 18 MG/DL (7-18); CALCIUM LEVEL 8.9 MG/DL (8.5-10.1); CARBON DIOXIDE LEVEL 26 MEQ/L (21-32); CHLORIDE LEVEL 106 MEQ/L (98-107); CREATININE FOR GFR 0.98 MG/DL (0.70-1.30); GLOMERULAR FILTRATION RATE > 60.0 (>56); GLUCOSE, FASTING 136 MG/DL (70-100); SODIUM LEVEL 139 MEQ/L (136-145)
[2019-02-21 02:40] LABS: ALBUMIN 4.4 GM/DL (3.2-5.2); BILIRUBIN,DIRECT 0.2 MG/DL (0.0-0.2); BILIRUBIN,TOTAL 0.9 MG/DL (0.2-1.0); LIPASE 79 U/L (73-393)
[2019-02-21] MEDS ORDERED: GASTROGRAFIN SOLUTION 30ML (Q9963) As Ordered ONE (02:44)
[2019-02-21] MEDS: GASTROGRAFIN SOLUTION 30ML PO SCH ×2 (03:00→03:29)
[2019-02-21] MEDS ORDERED: ISOVUE-370 76% 100ML VIAL (Q9967) As Ordered ONE (03:19)
--- NOTE | 2019-02-21 03:21 | REP ---
Clinical: Acute abdominal pain. Technique: Upright view of the chest with supine and upright views of the abdomen and pelvis. Findings: Frontal upright view of the chest demonstrates no acute cardiopulmonary process or free air below the diaphragm to suspect pneumoperitoneum. Supine and upright views of the abdomen and pelvis demonstrate nonspecific bowel gas pattern without obstruction or perforation. No organomegaly. No abnormal calcifications. Skeletal structures normal for age. Impression: Nonspecific bowel gas pattern. Electronically Signed by Kumar Osorio MD 02/21/2019 03:12 A
[2019-02-21] MEDS ORDERED: MORPHINE 4 MG/ML 1ML VIAL/SYRINGE (J2270) IV PRN (05:00)
[2019-02-21] MEDS ORDERED: PROMETHAZINE INJ 25 MG/ML VIAL (J2550) IV PRN (05:00)
[2019-02-21 05:25] LABS: CPK CREATINE PHOSPHOKINASE 451 U/L (39-308); MB/CK RELATIVE INDEX 10.75 (< OR =4); TROPONIN I 7.67 NG/ML (< 0.10)
--- NOTE | 2019-02-21 06:00 | REPVR ---
EXAM: CT Abdomen and Pelvis With Contrast EXAM DATE/TIME: 02/21/2019 2:35 AM CLINICAL HISTORY: 48 years old, male; Pain; Abdominal pain; Generalized; Additional info: Abd pain, bright red blood per rectum TECHNIQUE: Imaging protocol: Axial computed tomography images of the abdomen and pelvis with intravenous contrast. Coronal and sagittal reformatted images were created and reviewed. Radiation optimization: All CT scans at this facility use at least one of these dose optimization techniques: automated exposure control; mA and/or kV adjustment per patient size (includes targeted exams where dose is matched to clinical indication); or iterative reconstruction. Contrast material: iso Contrast volume: 100 ml Contrast route: ac COMPARISON: CT ABD PELVIS W/O FOL BY WIT 10/08/2018 9:18 PM FINDINGS: Lower thorax: There are small, bilateral pleural effusions. There is nonspecific dependent consolidation and groundglass opacity in the bilateral lung bases. There is retained or reflux oral contrast in the visualized distal esophagus. ABDOMEN: Liver: There are no focal liver lesions present. Gallbladder and bile ducts: The gallbladder is normal with no stones or biliary ductal dilation. Pancreas: The pancreas is normal with no ductal dilation. Spleen: The spleen is normal. Adrenals: The adrenal glands are normal. Kidneys and ureters: The kidneys are normal. There are no ureteral stones or hydronephrosis. Stomach and bowel: The small bowel appears unremarkable. There is long segment thickening of the colon from the hepatic flexure through the mid left colon. There is mild adjacent stranding, most prominent at the distal transverse colon and splenic flexure. There is no dilation of the bowel. Appendix: There has been an appendectomy. PELVIS: Bladder: The bladder is decompressed by a Carrion catheter. There is a small amount of intraluminal air consistent with instrumentation. Reproductive: The prostate gland demonstrates mild nonspecific enlargement. The seminal vesicles are normal. ABDOMEN and PELVIS: Intraperitoneal space: There is no evidence of free intraperitoneal or pelvic fluid. There is no free intraperitoneal air. Bones/joints: There is a stable nonaggressive lesion in the right ilium. No suspicious osseous lesions. No acute fractures or dislocations. Soft tissues: There is nonspecific stranding in the superficial soft tissues in the right inguinal region which was not present on the prior exam. Deeper soft tissue changes are unchanged and likely related to a right inguinal hernia repair. Vasculature: The aorta demonstrates mild atherosclerotic calcification. There is dilation of the right common iliac artery to 2.6 cm and there is a short segment dissection of the right common iliac artery, extending into the proximal right external iliac artery. The dilation and dissection appearance unchanged compared to the prior exam. Lymph nodes: Normal. No enlarged lymph nodes. IMPRESSION: 1. Long segment thickening of the colon from hepatic flexure through the mid left colon, consistent with a colitis. Ischemic colitis is possible based on the distribution. 2. 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 Findings were discussed with DINESH SANDERS at 02/21/2019 5:56 AM EDT. Electronically signed by: Peggy Li On 02/21/2019 05:59:58 AM
[2019-02-21] MEDS ORDERED: PANTOPRAZOLE 40MG INJ (PROTONIX) (C9113) IV ONE (06:15)
[2019-02-21 06:26] LABS: MB/CK RELATIVE INDEX 8.96 (< OR =4); TROPONIN I 6.87 NG/ML (< 0.10)
[2019-02-21] MEDS ORDERED: FLOM0.4C39 PO (06:34)
[2019-02-21] MEDS ORDERED: FLEC1TAB PO (06:34)
[2019-02-21] MEDS ORDERED: ATEN50TA2 PO (06:34)
[2019-02-21] MEDS ORDERED: ASPI-255 PO (06:34)
[2019-02-21] MEDS ORDERED: ROSU20TA4 PO (06:34)
[2019-02-21] MEDS ORDERED: ESCI10TA2 PO (06:34)
[2019-02-21] MEDS ORDERED: OMEP40CA2 PO (06:34)
[2019-02-21] MEDS ORDERED: XARE20TA PO (06:34)
--- NOTE | 2019-02-21 08:33 | ECGEPIP ---
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
--- NOTE | 2019-02-21 08:36 | ECGEPIP ---
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
--- NOTE | 2019-02-21 08:40 | HPEPDOC ---
[facility] Medical History & Physical Date of Admission Feb 21, 2019 Primary Care Physician: Ashli Bullard MD Attending Physician: DEB MIX MD History and Physical CHIEF COMPLAINT: GI bleed HISTORY OF PRESENT ILLNESS: Patient is a 48-year-old male with past medical history of atrial fibrillation status post ablation yesterday, RICH, asthma, hyperlipidemia presented to ER with complaints of rectal bleeding since last night. Patient was started on Xarelto yesterday post cardiac ablation for atrial fibrillation and developed bleeding about midnight yesterday following a bowel movement. He also had another episode ER with bright red blood. Patient complained of diffuse abdominal pain since last night a social with some nausea and vomiting otherwise denies any other complaints including fever, chills. In ER, hemoglobin was noted to be above [address] of abdomen is concerning for colitis/suspected ischemic colitis as well as evidence of right iliac aneurysmal dilatation along with dissection. PAST MEDICAL HISTORY: 1. Atrial fibrillation status post ablation 3. 2. GERD. 3. Stay. 4. Asthma 5. BPH PAST SURGICAL HISTORY: 1. Cardiac Ablations 3. 2. Cystoscopy. SOCIAL HISTORY: Social alcohol use. Denies tobacco or illicit drug use. FAMILY HISTORY: No medical problems noted. ALLERGIES: Please see below. REVIEW OF SYSTEMS: 10 point review of system negative except as stated in HPI HOME MEDICATIONS: Please see below. PHYSICAL EXAMINATION: General: Moderate distress on abdominal palpation, Alert Eyes: Normal sclera, EOMI, JAE HENT: Atraumatic, neck supple, moist mucous membranes Cardiovascular: Normal rate. No LE edema. Pulmonary: Clear to auscultation b/l, no wheezing GI: Soft, diffusely tender on exam. Skin: Warm and dry Neuro: CN grossly intact. No focal deficits. Strengths equal b/l. Psych: oriented x 3 LABORATORY DATA: See below. IMAGING: CT angio abdomen- ABDOMEN and PELVIS: Intraperitoneal space: There is no evidence of free intraperitoneal or pelvic fluid. There is no free intraperitoneal air. Bones/joints: There is a stable nonaggressive lesion in the right ilium. No suspicious osseous lesions. No acute fractures or dislocations. Soft tissues: There is nonspecific stranding in the superficial soft tissues in the right inguinal region which was not present on the prior exam. Deeper soft tissue changes are unchanged and likely related to a right inguinal hernia repair. Vasculature: The aorta demonstrates mild atherosclerotic calcification. There is dilation of the right common iliac artery to 2.6 cm and there is a short segment dissection of the right common iliac artery, extending into the proximal right external iliac artery. The dilation and dissection appearance unchanged compared to the prior exam. Lymph nodes: Normal. No enlarged lymph nodes. IMPRESSION: 1. Long segment thickening of the colon from hepatic flexure through the mid left colon, consistent with a colitis. Ischemic colitis is possible based on the distribution. 2. 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 MICROBIOLOGY: Please see below. ASSESSMENT AND PLAN: 1. GI bleed - Likely 2/2 Xarelto initiation. Holding at this time. - CT findings as above, concern for ischemic colitis. - Holding anticoagulation may not be ideal. - Obtain lactic acid. Consult placed to GI and Surgery. - Will need to discuss AC and further plan. - Obtain GI panel. - Hb stable at this time. Type and screen. H/H serial. Transfuse as needed. 2. HLD - NPO at this time. Resume home med at later time. 3. Asthma - Albuterol PRN. 4. R. iliac aneurysm/dissection - CT finding suggestive of 2.6 cm R. common iliac aneurysm and dissection proximally. - Consult placed to vascular surgery for evaluation. - f/u recommendations. Patient is high risk due to GI bleed with concern for ischemic colitis Estimated length of stay 3-4 days with expected disposition to home. Vital Signs Vital Signs Date Time Temp Pulse Resp B/P (MAP) Pulse Ox O2 Delivery O2 Flow Rate FiO2 02/21/19 07:13 81 16 153/87 96 Room Air 02/21/19 02:15 99.1 Laboratory Data Labs 24H Laboratory Tests 2 02/21/19 02:04: Immature Granulocyte % (Auto) 0.3, White Blood Count 14.2H, Red Blood Count 4.93, Hemoglobin 15.3, Hematocrit 45.1, Mean Corpuscular Volume 91.5, Mean Corpuscular Hemoglobin 31.0, Mean Corpuscular Hemoglobin Concent 33.9, Red Cell Distribution Width 13.0, Platelet Count 211, Neutrophils (%) (Auto) 87.6H, Lymphocytes (%) (Auto) 6.3L, Monocytes (%) (Auto) 5.6H, Eosinophils (%) (Auto) 0.1, Basophils (%) (Auto) 0.1, Neutrophils # (Auto) 12.4H, Lymphocytes # (Auto) 0.9L, Monocytes # (Auto) 0.8, Eosinophils # (Auto) 0.0, Basophils # (Auto) 0.0, Nucleated Red Blood Cells % (auto) 0.0, Prothrombin Time 17.4H, Prothromb Time International Ratio 1.40, Anion Gap 7L, Glomerular Filtration Rate > 60.0, Calcium Level 8.9, Aspartate Amino Transf (AST/SGOT) 54H, Alanine Aminotransferase (ALT/SGPT) 43, Alkaline Phosphatase 69, Total Bilirubin 0.9, Direct Bilirubin 0.2, Total Creatine Kinase 451H, Creatine Kinase MB 48.0H, Creatine Kinase MB Relative Index 10.75H, Troponin I 7.67*H, Total Protein 8.0, Albumin 4.4, Albumin/Globulin Ratio 1.22, Lipase 79 02/21/19 05:25: Total Creatine Kinase 336H, Creatine Kinase MB 30.0H, Creatine Kinase MB Relative Index 8.96H, Troponin I 6.87*H CBC/BMP Laboratory Tests 02/21/19 02:04 Red Blood Count 4.93, Mean Corpuscular Volume 91.5, Mean Corpuscular Hemoglobin 31.0, Mean Corpuscular Hemoglobin Concent 33.9, Red Cell Distribution Width 13.0, Neutrophils (%) (Auto) 87.6 H, Lymphocytes (%) (Auto) 6.3 L, Monocytes (%) (Auto) 5.6 H, Eosinophils (%) (Auto) 0.1, Basophils (%) (Auto) 0.1, Neutrophils # (Auto) 12.4 H, Lymphocytes # (Auto) 0.9 L, Monocytes # (Auto) 0.8, Eosinophils # (Auto) 0.0, Basophils # (Auto) 0.0 Home Medications Scheduled Aspirin (Aspirin EC) 325 Mg Tablet.dr, 325 MG PO DAILY Escitalopram Oxalate (Escitalopram Oxalate) 10 Mg Tablet, 20 MG PO QHS Flecainide Acetate (Flecainide Acetate) 100 Mg Tablet, 100 MG PO BID Omeprazole (Omeprazole) 40 Mg Capsule.dr, 40 MG PO DAILY Rivaroxaban (Xarelto) 20 Mg Tablet, 20 MG PO QHS STARTED TAKING YESTERDAY AFTER PROCEDURE Rosuvastatin Calcium (Rosuvastatin Calcium) 20 Mg Tablet, 20 MG PO QHS Tamsulosin HCl (Flomax) 0.4 Mg Capsule, 0.8 MG PO DAILY Scheduled PRN Atenolol (Atenolol) 50 Mg Tablet, 50 MG PO BID PRN for HIGH BLOOD PRESSURE Allergies Coded Allergies: No Known Allergies (Unverified , 02/21/19) DEB MIX MD Feb 21, 2019 08:40
[2019-02-21] MEDS: NS 1,000 ML IV SCH (09:27)
[2019-02-21] MEDS ORDERED: ATENOLOL 50 MG TAB PO PRN (09:45)
[2019-02-21] MEDS ORDERED: PIPERACILLIN/TAZOBACTAM SOD 3.375 GM in D5W MINI-BAG PLUS 50 ML IV SCH (10:00)
--- NOTE | 2019-02-21 10:18 | CR ---
DATE OF CONSULTATION: 02/21/2019 REQUESTING PROVIDER: Dr. Daryl Hightower REASON FOR CONSULTATION: GI bleed was concern that for colitis, question ischemic colitis. CHIEF COMPLAINT: Is abdominal pain and bloody stool. HISTORY OF PRESENT ILLNESS: This is a 48-year-old male who started having abdominal pain that was severe in quality at about 09:00 p.m. last night. He had had an ablation at [facility] for atrial fibrillation that morning. He describes his severe abdominal pain as crampy and sharp. He had several bloody bowel movements starting at midnight, where he states he was defecating blood clots that were bright red to dark red in color. He denies any diarrhea or constipation, but admits to nausea and vomiting. He denies fevers or chills. This has never happened before. He has generalized abdominal pain, and can not pinpoint any specific location of pain. The pain does not radiate away from his abdomen. It does not get worse with movement of his lower extremities. He was started on Xarelto yesterday after his cardiac ablation. His bloody bowel movement started about midnight last night. He does say that his daughter was recently diagnosed with gastroenteritis. REVIEW OF SYSTEMS: Denies any fevers, chills, or weight changes. HEENT: Denies any vision or hearing changes. Denies epistaxis, tinnitus, sore throat, odynophagia or runny nose. Cardiovascular: Denies any chest pain or shortness of breath. Denies palpitations or leg swelling. Respiratory: Denies any cough, sputum production wheezes, hemoptysis or shortness of breath. GI: Positive for abdominal pain with some nausea and vomiting as well as hematochezia. Denies melena, tenesmus, obstipation, constipation or diarrhea. Genitourinary: Positive for history of BPH with dysuria as well as occasional hematuria. He does see Dr. Lazaro of urology for this. Musculoskeletal:. Denies any joint swelling decrease she inch of motion, crepitus or pain in his extremities. Integumentary: Denies any new rashes, pruritus dry wounds of lesions. Neurologic: Denies any changes to sight / smell / hearing / taste, history of seizures, headaches, paresthesias or anesthesias or motor weakness. Psychiatric: Denies any paranoia anhedonia episodes of shu, depression and anxiety. Endocrine: Denies any diarrhea, tremor, palpitations, visual disturbances, polydipsia or polyuria, constipation or dry skin. Hematologic: Denies any edema of anemia, purpura or petechiae. He is on Xarelto and aspirin. PAST MEDICAL HISTORY: Atrial fibrillation status post cardiac ablation yesterday gastroesophageal reflux disease, hyperlipidemia, hematuria, BPH. PAST SURGICAL HISTORY: 1. Cardiac ablations in 2007 and 2018. 2. Cystoscopy. 3. Colonoscopy in 2009 which was normal. 4. Right inguinal hernia repair. 5. Facetectomy 6. Left rotator cuff in 2010. 7. Right rotator cuff in 2011. 8. Appendectomy in 2012. SOCIAL HISTORY: Denies drug use. He is a social drinker. He quit smoking 3 years ago. He lives with his . FAMILY HISTORY: Positive for diabetes and heart disease. ALLERGIES: None. HOME MEDICATIONS: Aspirin 325 mg tablet by mouth daily, atenolol 50 mg by mouth twice a day as needed for high blood pressure, citalopram 20 mg by mouth at bedtime, Flecainide 100 mg by mouth twice a day, omeprazole 40 mg by mouth daily, Xarelto 20 mg by mouth at bedtime, [id number] mg by mouth at bedtime, Flomax 0.8 mg by mouth daily. PHYSICAL EXAMINATION: Vitals: Temperature 99.1, pulse is 80 and regular, respiratory rate 16, blood pressure 152/90, pulse ox is 96% on room air. General: The patient is awake, alert and oriented. He is looks mildly uncomfortable but is in no acute distress. HEENT: Atraumatic, normocephalic. Pupils are equal, round and reactive to light. Mucous membranes are slightly moist. Neck: Supple, no masses are noted. Lungs: Clear to auscultation bilaterally. No wheezes, rhonchi or rales. Heart: Regular rate and rhythm. No murmurs, gallops or rubs. Abdomen: Positive bowel sounds that are normoactive in nature in all four quadrants. The abdomen is slightly protuberant but is soft and nondistended. There is some mild tenderness to palpation in all four quadrants. However pain is not out of proportion to exam. There is no guarding, rebound or rigidity. There are no peritoneal signs. Genitourinary: Carrion catheter is in place and there is about 200 mL of dark yellow urine present. Extremities: No clubbing, cyanosis or edema. Peripheral pulses are 2+ bilaterally. Capillary refill is less than 2 seconds bilaterally. Neuro: The patient is alert and oriented times three. He is able to move all of his extremities freely. There are no focal neurological deficits noted. LABORATORY DATA: CBC: WBC 14.2, hemoglobin 15.3, hematocrit 45.1, platelets of 211. Chemistry: Sodium 139, potassium 4.0, chloride 106, carbon dioxide 26, BUN 18, creatinine 0.98, fasting glucose 136, calcium 8.9, total bilirubin 0.9, direct bilirubin 0.2, AST 54, ALT 43, alkaline phosphatase 69, total creatinine kinase 451, CK-MB 48.0, troponin 7.67, total protein 8.0, albumin 4.4, lipase 79.Coaguation PT 7.4, INR 1.4. Repeat cardiac markers show a decreasing trend in the cardiac enzymes. Total creatinine kinase 336, CK-MB 30, troponin 6.87. Lactic acid pending. IMAGING STUDIES: Chest x-ray done 02/21/2019 shows no acute cardiopulmonary process. KUB done 02/21/2019 shows no free air under the diaphragm, no organomegaly, a nonspecific bowel gas pattern. Abdomen and pelvis CT with IV and oral contrast done 02/21/2019 shows small bilateral pleural effusion. Normal gallbladder, normal pancreas, normal spleen, normal adrenal glands, normal kidneys, no new renal stones or hydronephrosis. Small bowel is unremarkable. Long segment of thickening of the colon from the hepatic flexure to the mid left colon without dilation of the bowel wall. The bladder is decompressed by a Carrion catheter. Mild nonspecific enlargement of the prostate. No free intraperitoneal air of or pelvic fluid. The right inguinal hernia repair is noted. Atherosclerosis is present in the aorta with dilation of the right common iliac artery with dissection that is unchanged from his previous exam. IMPRESSION: This is a 48-year-old male who is day #1 status post cardiac ablation for atrial fibrillation who had the sudden onset abdominal pain at 09:00 p.m. last night followed by bloody bowel movements at midnight last night who was admitted for GI bleed, possible colitis. PLAN: 1. Colitis, ischemic versus infectious. Our personal reading of the abdomen and pelvic CT showed what looked like mild colitis of the transverse colon, we felt that it was less likely ischemic colitis and the due to be amount of colon involved. The patient's daughter has recently been diagnosed with a gastroenteritis as well. We will cover empirically with Zosyn. Lactic acid is pending, and based on those results we may take the patient to the OR for exploratory laparoscopy. If his lactic acid is normal, it would be less concerning for ischemic colitis and would probably indicate etiology of an infectious nature. 2. Lower GI bleed. The patient's last colonoscopy was in 2009, he will be due for another one soon. If the patient's lactic acid is normal, then we will most likely perform a colonoscopy to check for bleeding vasculature. The patient's Xarelto has been put on hold. He has been typed and screened in case blood transfusion is needed. 3. Dehydration. The patient looks mildly dehydrated on exam. His urine was quite dark in his Carrion catheter. He does have IV fluids ordered. My faculty preceptor for this patient encounter was physically present during the encounter and was fully available. All aspects of the patient interview, examination, medical decision making process, and medical care plan development were reviewed and approved by the faculty preceptor. The faculty preceptor is aware and concurs with the plan as stated in the body of this note and will attest to such by his/her cosignature. ABEL
--- NOTE | 2019-02-21 10:44 | CR.PDOC ---
General Date of Consultation: Feb 21, 2019 Consultation Vascular Surgery: Dr. Coto CC: abdominal pain HPI: 48yoM with a past medical history significant for Afib and states underwent cardiac ablation procedure 02/20/19 in [place] with access through [facility], on Xarelto anticoagulation. The pt sates he began to have abdominal pain at 9 PM severe per pt, achey in nature, subsequently several bloody BMs with clots noted. Some nausea and vomited x 1. Denies diarrhea/constipation. Pt denies any RLE pain. Vascular surgery is consulted related to CT with possible ischemic colitis and aneurysmal dilation and short segment dissection of the right common iliac artery extending into the proximal right external iliac artery. Denies any fevers, chills, weakness, fatigue, AVILEZ, CP, SOB, cough, palpitations, denies change in bladder habits. PAST MEDICAL HISTORY: Atrial fibrillation status post cardiac ablation 02/20/19 Dr Arzate. On Xarelto. gastroesophageal reflux disease, hyperlipidemia, hematuria/ BPH. PAST SURGICAL HISTORY: Cardiac ablations in 2007 and 2018. Cystoscopy. Colonoscopy in 2009 which was normal. Right inguinal hernia repair. Facetectomy Left rotator cuff in 2010. Right rotator cuff in 2011. Appendectomy in 2012. SOCIAL HISTORY: [facility] air sampling and monitoring Denies drug use. He is a social drinker. He quit smoking 3 years ago. FAMILY HISTORY: H/O diabetes and heart disease. ROS: As noted in HPI, otherwise 11pt ROS of systems reviewed and unremarkable. PE: GEN: 48yoM, appears stated age. No acute distress. Alert and oriented x 3. HEENT: Normocephalic, atraumatic. Sclera are nonicteric. Conjunctiva without injection. No facial asymmetry. Moist mucous membranes. CHEST: Regular rate and rhythm, +S1, +S2 LUNGS: Clear to auscultation bilaterally. No wheezes, rales, or rhonchi. ABD: Round, soft, mild diffuse TTP. No rebound or guarding. No costovertebral angle tenderness. EXT: Pulses 2+ bilaterally dorsalis pedis and PT. No lower extremity edema appre ciated. SKIN: [place], dry, warm. Capillary refill <2sec. No rashes. NEURO: Alert and oriented x 3. No focal deficits appreciated. AXR: Nonspecific bowel gas pattern. Electronically Signed by Kumar Osorio MD 02/21/2019 03:[address]: 1. Long segment thickening of the colon from hepatic flexure through the mid left colon, consistent with a colitis. Ischemic colitis is possible based on the distribution. 2. 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 Findings were discussed with DINESH SANDERS at 02/21/2019 5:56 AM EDT. Electronically signed by: Peggy Li On 02/21/2019 05:59:58 AM A&P: 48yoM with a past medical history significant for Afib and states underwent cardiac ablation procedure 02/20/19 in [place] with access through [facility]in, on Xarelto anticoagulation. The pt sates he began to have abdominal pain at 9 PM severe per pt, achey in nature, subsequently several bloody BMs with clots noted. Some nausea and vomited x 1. Denies diarrhea/constipation. Vascular surgery is consulted related to CT with possible ischemic colitis and aneurysmal dilation and short segment dissection of the right common iliac artery extending into the proximal right external iliac artery. 1. Colitis/GI bleeding. Afebrile. VSS. WBC 14.2 LA 0.9. The pt is reviewed and examined as per Dr Coto. CT A/P is reviewed. with no indication for mesenteric ischemia. All vessels are patent, no significant calcification noted. No findings to suggest embolic phenomenon. No intervention would be recommended from a vascular standpoint at this time. Possible infectious etiology. Mgmt as per primary team. 2. Aneurysmal dilation and short segment dissection of the right common iliac artery extending into the proximal right external iliac artery. Possibly related to cardiac ablation procedure 02/20/19. Access 02/20/19 via Rt groin. Would recommend Aortic/iliac U/S in approximately 3 months, outpt F/U in 2 months in Vascular surgery office to arrange this. 3. PAF S/P Ablation 02/20/19. Atenolol/Xarelto. 4. HLD. Crestor. 5. BPH. Flomax. 6. GERD. Prilosec. 7. Depression. Lexapro. Vital Signs/I&O Vital Signs Date Time Temp Pulse Resp B/P (MAP) Pulse Ox O2 Delivery O2 Flow Rate FiO2 02/21/19 10:16 98.0 83 16 149/86 (107) 93 Room Air Laboratory Data Labs 24H Laboratory Tests 2 02/21/19 02:04: Immature Granulocyte % (Auto) 0.3, White Blood Count 14.2H, Red Blood Count 4.93, Hemoglobin 15.3, Hematocrit 45.1, Mean Corpuscular Volume 91.5, Mean Corpuscular Hemoglobin 31.0, Mean Corpuscular Hemoglobin Concent 33.9, Red Cell Distribution Width 13.0, Platelet Count 211, Neutrophils (%) (Auto) 87.6H, Lymphocytes (%) (Auto) 6.3L, Monocytes (%) (Auto) 5.6H, Eosinophils (%) (Auto) 0.1, Basophils (%) (Auto) 0.1, Neutrophils # (Auto) 12.4H, Lymphocytes # (Auto) 0.9L, Monocytes # (Auto) 0.8, Eosinophils # (Auto) 0.0, Basophils # (Auto) 0.0, Nucleated Red Blood Cells % (auto) 0.0, Prothrombin Time 17.4H, Prothromb Time International Ratio 1.40, Anion Gap 7L, Glomerular Filtration Rate > 60.0, Calcium Level 8.9, Aspartate Amino Transf (AST/SGOT) 54H, Alanine Aminotransferase (ALT/SGPT) 43, Alkaline Phosphatase 69, Total Bilirubin 0.9, Direct Bilirubin 0.2, Total Creatine Kinase 451H, Creatine Kinase MB 48.0H, Creatine Kinase MB Relative Index 10.75H, Troponin I 7.67*H, Total Protein 8.0, Albumin 4.4, Albumin/Globulin Ratio 1.22, Lipase 79 02/21/19 05:25: Total Creatine Kinase 336H, Creatine Kinase MB 30.0H, Creatine Kinase MB Relative Index 8.96H, Troponin I 6.87*H 02/21/19 08:33: Lactic Acid Level 0.9 CBC/BMP Laboratory Tests 02/21/19 02:04 Red Blood Count 4.93, Mean Corpuscular Volume 91.5, Mean Corpuscular Hemoglobin 31.0, Mean Corpuscular Hemoglobin Concent 33.9, Red Cell Distribution Width 13.0, Neutrophils (%) (Auto) 87.6 H, Lymphocytes (%) (Auto) 6.3 L, Monocytes (%) (Auto) 5.6 H, Eosinophils (%) (Auto) 0.1, Basophils (%) (Auto) 0.1, Neutrophils # (Auto) 12.4 H, Lymphocytes # (Auto) 0.9 L, Monocytes # (Auto) 0.8, Eosinophils # (Auto) 0.0, Basophils # (Auto) 0.0 Allergies Coded Allergies: No Known Allergies (Unverified , 02/21/19) Home Medications Scheduled Aspirin (Aspirin EC) 325 Mg Tablet.dr, 325 MG PO DAILY, (Reported) Escitalopram Oxalate (Escitalopram Oxalate) 10 Mg Tablet, 20 MG PO QHS, (Reported) Flecainide Acetate (Flecainide Acetate) 100 Mg Tablet, 100 MG PO BID, (Reported) Omeprazole (Omeprazole) 40 Mg Capsule.dr, 40 MG PO DAILY, (Reported) Rivaroxaban (Xarelto) 20 Mg Tablet, 20 MG PO QHS, (Reported) STARTED TAKING YESTERDAY AFTER PROCEDURE Rosuvastatin Calcium (Rosuvastatin Calcium) 20 Mg Tablet, 20 MG PO QHS, (Reported) Tamsulosin HCl (Flomax) 0.4 Mg Capsule, 0.8 MG PO DAILY, (Reported) Scheduled PRN Atenolol (Atenolol) 50 Mg Tablet, 50 MG PO BID PRN for HIGH BLOOD PRESSURE, (Reported) [place] Feb 21, 2019 10:44
[2019-02-21 11:00] VITALS: BP 145/94
[2019-02-21 11:58] LABS: HEMATOCRIT 41.8 % (42.0-52.0); HEMOGLOBIN 13.7 g/dl (13.5-17.5)
[2019-02-21] MEDS: traMADol 50 MG TAB PO PRN (11:58)
[2019-02-21] MEDS: metroNIDAZOLE 500 MG in APPROPRIATE DILUENT 1 EA IV SCH ×2 (11:59→18:52)
[2019-02-21] MEDS: CIPROFLOXACIN 400 MG in APPROPRIATE DILUENT 1 EA IV SCH ×2 (13:08→22:38)
[2019-02-21] MEDS: OMEPRAZOLE 20 MG CAP PO SCH (13:09)
[2019-02-21] MEDS: TAMSULOSIN 0.4 MG CAP PO SCH (13:09)
[2019-02-21] MEDS: MORPHINE 4 MG/ML 1ML VIAL/SYRINGE (J2270) IV PRN ×3 (13:43→20:47)
--- NOTE | 2019-02-21 15:20 | CR.PDOC ---
General Date of Consultation: Feb 21, 2019 Referring Provider: DEB MIX MD Attending Physician: YANY BAILEY MD Consultation Primary physician/ hospitalist: Dr. Mix Reason for consult: Rectal bleeding. HPI: 48 year old male patient with medical history of Atrial fibrillation, ( was following with Dr. Arzate in [facility], and had cardiac ablation procedure 02/20/19 with access through Right Groin, and started on Xarelto anticoagulation - first dose on 02/20/2019), acid reflux, BA, HLD, presented to [facility] ER after he developed diffuse abdominal pain with rectal bleeding. GI was consulted for the same. Patient reports that he had atleast 6 - 8 bloody bowel movements since it started, associated with cramping abdominal pain, diffuse and mostly distribution in upper abdomen. Patient also reports nausea and had atleast one episode of vomiting. Patient denies any dizziness, loss of consciousness, chest pain or diaphoresis. ( But patient had some left lateral non specific pain). Patient denies any prior Colonoscopy. Pertinent negative GI symptoms: Patient denies loss of appetite, early satiety or unintentional weight loss. No history of hematemesis, melena. Review of Systems: GI: as stated above CVS: No chest pain, No palpitations, No leg swelling. RS: No Shortness of breath, No Wheezing, no cough MEDICAL ASSISTANT SUPERVISOR: No dizziness, No motor weakness, No sensory problems Hematology: No bruising, No gum bleeding, Musculoskeletal: No joint pain, ambulating well. Skin: No rash : No hematuria, No burning sensation of the urine ENT: No ear discharge/ pain, No dysphagia. Eyes: No photophobia. Jaundice Home medications: reviewed. Antithrombotic agents - on xarelto and Asa 325. Medical h/o: As above. Surgical h/o: None on abdomen. Social h/o: Alcohol --social, smoking -- denies , IVDA/ drugs -- denies . Family h/o of GI cancers - None Prior Endoscopies: None in [facility] Prior GI evaluations: None in [facility] Exam: Vitals: reviewed General: Alert and oriented x 3, moderate distress due to abdominal pain. HEENT: NO pallor, no icterus. Normal oropharynx, NO cervical lymph nodes. Chest: symmetric with bilateral clear air entry, CVS: S1, S2 heard, normal, no murmurs . Abdomen: non-distended, no surgical scars, soft, mild tenderness in upper abdomen, no palpable masses, normal bowel sounds heard. Rectal exam: Patient refused / Deferred at this time in view of scheduled colonoscopy. Extremities: no pedal edema, pulses palpable. MEDICAL ASSISTANT SUPERVISOR: no focal motor or sensory deficits. Moves all extremities Skin: no rash. Labs: reviewed. CT abdomen -- showed transverse colon colitis. Impression: -- Acute onset abdominal pain with bloody bowel movements in a patient with history of atrial fibrillation and catheter ablation -- DDx - Likely ischemic colitis from emboli vs rule out infectious Colitis vs Diverticular bleeding. Recommendations: - Patient educated about the test results, possible differential diagnoses and All questions answered. - Monitor vital closely and maintain adequate IV hydration. - Monitor H/H and transfuse if needed to keep hemoglobin around 8-9 gm/dL ( at this time no indication for transfusion). - Give Ciprofloxacin and metronidazole for possible ischemic colitis. - No contraindication for anticoagulation and it can be continued if indicated by cardiology. - In view of epigastric abdominal pain and prior acid reflux symptoms -- will continue the PPI ( IV or oral). - Patient will be scheduled for urgent diagnostic and/or therapeutic colonoscopy. - The procedure, indications, risks (bleeding, perforation, infection, hypotension, respiratory depression, allergy, need for endotracheal intubation, surgery, colostomy, cardiac arrest, even ), benefits, limitations (e.g., missing a lesion), and all other alternatives (including no intervention) were explained to the patient who understood and agreed for the procedure. - Clear liquid diet until 4 hours prior to procedure. - Golytely orders placed. Plan of care discussed with patient and primary team. Patient verbalized understanding and agreed with the plan. 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 Patient tolerated Colonoscopy, no immediate post procedure complications. ( for detailed colonoscopy findings please review operative note). Noted diffuse colitis starting from transverse colon. Colonoscope was not passed beyond that point due to severe colitis. Biopsies were taken. Also noted mild diverticulosis, hemorrhoids. Impression: -- Most likely ischemic colitis. recommendations: -- In addition to above, patient is educated about the risks and benefits and alternatives to xarelto. Also as per discussion with patients primary brake lining finisher asbestos, high risk of CVA if not anticoagulated. Patient wanted to continue with xarelto. -- Clear liquid diet. -- Close monitoring of abdominal exam, CBC, Lactic acid. If any worsening then will need surgery evaluation. At this time in view of clinical improvement and stable labs, patient would more likely recover from ischemic colitis. Educated patient about the possible complications. -- Follow up pathology results. -- continue Above antibiotics for course of 10 days. -- Recall Gi if any acute change in status. Plan of care discussed with patient and Primary team. Patient verbalized understanding. Laboratory Data CBC/BMP Laboratory Tests 02/21/19 02:04 02/21/19 11:45 Allergies Coded Allergies: No Known Allergies (Unverified , 02/21/19) Home Medications Scheduled Aspirin (Aspirin EC) 325 Mg Tablet.dr, 325 MG PO DAILY, (Reported) Escitalopram Oxalate (Escitalopram Oxalate) 10 Mg Tablet, 20 MG PO QHS, (Reported) Flecainide Acetate (Flecainide Acetate) 100 Mg Tablet, 100 MG PO BID, (Reported) Omeprazole (Omeprazole) 40 Mg Capsule.dr, 40 MG PO DAILY, (Reported) Rivaroxaban (Xarelto) 20 Mg Tablet, 20 MG PO QHS, (Reported) STARTED TAKING YESTERDAY AFTER PROCEDURE Rosuvastatin Calcium (Rosuvastatin Calcium) 20 Mg Tablet, 20 MG PO QHS, (Reported) Tamsulosin HCl (Flomax) 0.4 Mg Capsule, 0.8 MG PO DAILY, (Reported) Scheduled PRN Atenolol (Atenolol) 50 Mg Tablet, 50 MG PO BID PRN for HIGH BLOOD PRESSURE, (Reported) YANY BAILEY MD Feb 21, 2019 15:20
[2019-02-21 16:00] VITALS: BP 150/92
[2019-02-21] MEDS ORDERED: ACETAMINOPHEN TAB 650MG DOSE (2X325MG) PO PRN (16:45)
[2019-02-21] MEDS ORDERED: RIVAROXABAN 20 MG TAB (XARELTO) PO SCH (18:00)
[2019-02-21] MEDS ORDERED: GOLYTELY SOLN 4000 ML BTL PO ONE (19:00)
[2019-02-21 20:00] VITALS: BP 166/94
[2019-02-21 20:21] LABS: HEMATOCRIT 42.5 % (42.0-52.0); HEMOGLOBIN 14.1 g/dl (13.5-17.5)
[2019-02-21] MEDS: ROSUVASTATIN 10 MG TAB (CRESTOR) PO SCH (20:46)
[2019-02-21] MEDS: ESCITALOPRAM OXALATE 10 MG TAB (LEXAPRO) PO SCH (20:46)
[2019-02-21 23:59] VITALS: BP 167/91
[2019-02-22] MEDS: metroNIDAZOLE 500 MG in APPROPRIATE DILUENT 1 EA IV SCH ×3 (02:30→18:27)
[2019-02-22] MEDS: NS 1,000 ML IV SCH ×2 (02:31→14:04)
[2019-02-22 04:00] VITALS: BP 176/95
[2019-02-22] MEDS: MORPHINE 4 MG/ML 1ML VIAL/SYRINGE (J2270) IV PRN ×4 (04:02→18:26)
[2019-02-22 04:12] LABS: HEMATOCRIT 41.4 % (42.0-52.0); HEMOGLOBIN 13.4 g/dl (13.5-17.5)
[2019-02-22 05:09] LABS: MEAN CORPUSCULAR HEMOGLOBIN 30.5 pg (27.0-33.0); MEAN CORPUSCULAR HGB CONC 32.6 g/dl (32.0-36.5); MEAN CORPUSCULAR VOLUME 93.7 fl (80.0-96.0); PLATELET COUNT, AUTOMATED 161 10^3/uL (150-450); RED BLOOD COUNT 4.42 10^6/uL (4.30-6.10); WHITE BLOOD COUNT 13.4 10^3/uL (4.0-10.0)
[2019-02-22 05:17] LABS: BLOOD UREA NITROGEN 9 MG/DL (7-18); CALCIUM LEVEL 7.7 MG/DL (8.5-10.1); CARBON DIOXIDE LEVEL 27 MEQ/L (21-32); CHLORIDE LEVEL 107 MEQ/L (98-107); CREATININE FOR GFR 0.87 MG/DL (0.70-1.30); GLOMERULAR FILTRATION RATE > 60.0 (>56); GLUCOSE, FASTING 120 MG/DL (70-100); POTASSIUM SERUM 3.9 MEQ/L (3.5-5.1); SODIUM LEVEL 139 MEQ/L (136-145)
[2019-02-22 06:24] VITALS: BP 132/84
--- NOTE | 2019-02-22 06:38 | IPNPDOC ---
Text Note Date of Service The patient was seen on 02/22/19. NOTE No acute events overnight. He is tolerating the bowel prep, and having multiple loose BMs that are still bloody. He also had a bloody nose, and is starting to have some blood in his urine. Abd pains is still present and diffuse. Denies nausea, emesis, fevers. VSSAF NAD abd - soft, slightly distended, TTP upper abdomen, no rebound or guarding labs - see below A) 48y/o male POD#2 s/p cardiac ablation currently with transverse colon colitis that is likely infectious bloody stools hematuria P) NPO IVF ABX OPP today with GI for colonoscopy will follow Brandon Bal DO VS,Addi, I+O VS, Addi, I+O Laboratory Tests 02/21/19 11:45 02/21/19 20:07 02/22/19 04:06 Red Blood Count 4.42, Mean Corpuscular Volume 93.7, Mean Corpuscular Hemoglobin 30.5, Mean Corpuscular Hemoglobin Concent 32.6, Red Cell Distribution Width 13.2 02/22/19 04:09 Calcium Level 7.7 L Vital Signs Date Time Temp Pulse Resp B/P (MAP) Pulse Ox O2 Delivery O2 Flow Rate FiO2 02/22/19 06:24 132/84 (100) 02/22/19 04:15 16 02/22/19 04:00 96.5 87 95 02/21/19 10:34 Room Air I&O- Last 24 Hours up to 6 AM 02/22/19 06:00 Intake Total 3080 ml Output Total 4025 ml Balance -945 ml KARY BAL DO Feb 22, 2019 06:38
[2019-02-22 08:00] VITALS: BP 134/80
[2019-02-22] MEDS: CIPROFLOXACIN 400 MG in APPROPRIATE DILUENT 1 EA IV SCH ×2 (10:45→21:15)
[2019-02-22] MEDS ORDERED: PROPOFOL 200 MG/20 ML VIAL As Ordered ONE (13:01)
--- NOTE | 2019-02-22 13:18 | ROOR ---
Patient Name: Abebe Goodman Procedure Date: 02/22/2019 12:55 PM Date of : 1970 Age: 48 Room: [facility] Gender: Male Note Status: Finalized Procedure: Colonoscopy Indications: Hematochezia Providers: Benjamin Armenta MD Referring MD: Ashli Bullard MD Requesting Provider: Medicines: Monitored Anesthesia Care Complications: No immediate complications. Procedure: Pre-Anesthesia Assessment: - Prior to the procedure, a History and Physical was performed, and patient medications and allergies were reviewed. The patient is competent. The risks and benefits of the procedure and the sedation options and risks were discussed with the patient. All questions were answered and informed consent was obtained. Patient identification and proposed procedure were verified by the physician, the nurse and the anesthesiologist in the procedure room. Mental Status Examination: alert and oriented. Airway Examination: normal oropharyngeal airway and neck mobility. Respiratory Examination: clear to auscultation. CV Examination: normal. Prophylactic Antibiotics: The patient does not require prophylactic antibiotics. Prior Anticoagulants: The patient has taken no previous anticoagulant or antiplatelet agents. ASA Grade Assessment: III - A patient with severe systemic disease. After reviewing the risks and benefits, the patient was deemed in satisfactory condition to undergo the procedure. The anesthesia plan was to use monitored anesthesia care (MAC). Immediately prior to administration of medications, the patient was re-assessed for adequacy to receive sedatives. The heart rate, respiratory rate, oxygen saturations, blood pressure, adequacy of pulmonary ventilation, and response to care were monitored throughout the procedure. The physical status of the patient was re-assessed after the procedure. The Colonoscope was introduced through the anus and advanced to the transverse colon for evaluation. This was the intended extent. The colonoscopy was performed without difficulty. The patient tolerated the procedure well. The quality of the bowel preparation was fair. The rectum was photographed. Scope insertion time was 2 minutes. Scope withdrawal time was 6 minutes. The total duration of the procedure was 8 minutes. Findings: The perianal and digital rectal examinations were normal. Diffuse severe mucosal changes characterized by altered vascularity, congestion (edema), erythema, friability and confluent ulcerations were found in the transverse colon. Biopsies were taken with a cold forceps for histology. A few small-mouthed diverticula were found in the sigmoid colon. Non-bleeding external and internal hemorrhoids were found during endoscopy. The hemorrhoids were medium-sized. Impression: - Preparation of the colon was fair. - Diffuse severe mucosal changes were found in the transverse colon secondary to ischemic colitis. Biopsied. - Mild diverticulosis in the sigmoid colon. - Non-bleeding external and internal hemorrhoids. Recommendation: - Patient has a contact number available for emergencies. The signs and symptoms of potential delayed complications were discussed with the patient. Return to normal activities tomorrow. Written discharge instructions were provided to the patient. - Return patient to hospital real for ongoing care. - Clear liquid diet. - Continue present medications. - Await pathology results. - Refer to a surgeon. - Repeat colonoscopy in 6 months to check healing. - Return to GI clinic in [facility] (address [address], [place] [address]) in 4 -- 6 weeks. Please call GI clinic @ [phone] for apppointment date and time. - Return to primary care physician. Benjamin Armenta MD Benjamin Armenta MD 02/22/2019 1:18:06 PM Electronically signed by Benjamin Armenta MD Number of Addenda: 0 Note Initiated On: 02/22/2019 12:55 PM Estimated Blood Loss: Estimated blood loss was minimal.
[2019-02-22] MEDS: TAMSULOSIN 0.4 MG CAP PO SCH (15:01)
[2019-02-22] MEDS: OMEPRAZOLE 20 MG CAP PO SCH (15:01)
[2019-02-22 16:00] VITALS: BP 148/70
--- NOTE | 2019-02-22 17:40 | IPNPDOC ---
Subjective Date Seen The patient was seen on 02/22/19. Subjective Chief Complaint/HPI 48 M PMH Afib s/p ablation x3 with most recent one day prior to presentation presented with GI bleeding and abdominal pain after starting Xarelto. CT findings concerning for colitis infectious vs. Ischemic. Interval history: Patient appeared much more comfortable this morning. Reports that he still has pain in abdomen but had improved from yesterday. Also with persistent bleeding but decrease in volume as well. Hb remained stable. s/p colonoscopy this afternoon. Objective Physical Examination Other physical findings General: Moderate distress on abdominal palpation, Alert Eyes: Normal sclera, EOMI, JAE HENT: Atraumatic, neck supple, moist mucous membranes Cardiovascular: Normal rate. No LE edema. Pulmonary: Clear to auscultation b/l, no wheezing GI: Soft, mild tenderness diffusely on exam. Skin: Warm and dry Neuro: CN grossly intact. No focal deficits. Strengths equal b/l. Psych: oriented x 3 Assessment /Plan Assessment ASSESSMENT AND PLAN: 1. GI bleed - Likely 2/2 Xarelto initiation. Initially held but resumed due to suspicion for ischemic colitis that could be embolic. - CT findings as above, concern for ischemic colitis. - Lactic acid WNL. GI and surgery following. - Cannot reach clear concensus regarding whether colitis is infectious vs. ischemic. - Will hold Xarelto at this time as patient also recently post op. - H/H serial. Transfuse as needed. 2. HLD - resume home medications. 3. Asthma - Albuterol PRN. 4. R. iliac aneurysm/dissection - CT finding suggestive of 2.6 cm R. common iliac aneurysm and dissection proximally. - vascular surgery evaluated. - No surgical intervention at this time. Patient is high risk due to GI bleed with concern for ischemic colitis Estimated length of stay 3-4 days with expected disposition to home. Plan/VTE VTE Prophylaxis Ordered?: Yes VS, I&O, 24H, Fishbone Vital Signs/I&O Vital Signs Date Time Temp Pulse Resp B/P (MAP) Pulse Ox O2 Delivery O2 Flow Rate FiO2 02/22/19 16:00 100.0 89 20 148/70 (96) 94 02/21/19 10:34 Room Air I&O- Last 24 Hours up to 6 AM 02/22/19 06:00 Intake Total 3080 ml Output Total 4025 ml Balance -945 ml Laboratory Data 24H LABS Laboratory Tests 2 02/22/19 04:06: Nucleated Red Blood Cells % (auto) 0.0 02/22/19 04:09: Anion Gap 5L, Glomerular Filtration Rate > 60.0, Blood Urea Nitrogen 9, Creatinine 0.87, Sodium Level 139, Potassium Level 3.9, Chloride Level 107, Carbon Dioxide Level 27, Calcium Level 7.7L CBC/BMP Laboratory Tests 02/21/19 20:07 02/22/19 04:06 Red Blood Count 4.42, Mean Corpuscular Volume 93.7, Mean Corpuscular Hemoglobin 30.5, Mean Corpuscular Hemoglobin Concent 32.6, Red Cell Distribution Width 13.2 02/22/19 04:09 Calcium Level 7.7 L DEB MIX MD Feb 22, 2019 17:40
[2019-02-22] MEDS: RIVAROXABAN 20 MG TAB (XARELTO) PO SCH (19:47)
[2019-02-22 19:58] VITALS: BP 156/82
[2019-02-22] MEDS: ROSUVASTATIN 10 MG TAB (CRESTOR) PO SCH (21:15)
[2019-02-22] MEDS: ESCITALOPRAM OXALATE 10 MG TAB (LEXAPRO) PO SCH (21:15)
[2019-02-22] MEDS: NORCO, ANEXSIA 5/325MG TABLET (HYDROcodone/ACETAMINOPHEN) PO PRN (21:16)
[2019-02-22 23:59] VITALS: BP 130/76
[2019-02-23] MEDS: MORPHINE 4 MG/ML 1ML VIAL/SYRINGE (J2270) IV PRN ×6 (01:02→22:30)
[2019-02-23 04:00] VITALS: BP 142/78
[2019-02-23] MEDS: metroNIDAZOLE 500 MG in APPROPRIATE DILUENT 1 EA IV SCH ×3 (04:04→19:09)
[2019-02-23] MEDS: NORCO, ANEXSIA 5/325MG TABLET (HYDROcodone/ACETAMINOPHEN) PO PRN ×3 (04:04→16:40)
[2019-02-23 05:33] LABS: HEMOGLOBIN 12.7 g/dl (13.5-17.5); MEAN CORPUSCULAR HEMOGLOBIN 30.9 pg (27.0-33.0); MEAN CORPUSCULAR HGB CONC 33.4 g/dl (32.0-36.5); MEAN CORPUSCULAR VOLUME 92.5 fl (80.0-96.0); PLATELET COUNT, AUTOMATED 144 10^3/uL (150-450); RED BLOOD COUNT 4.11 10^6/uL (4.30-6.10); WHITE BLOOD COUNT 12.3 10^3/uL (4.0-10.0)
[2019-02-23 05:35] LABS: BLOOD UREA NITROGEN 8 MG/DL (7-18); CALCIUM LEVEL 7.8 MG/DL (8.5-10.1); CARBON DIOXIDE LEVEL 27 MEQ/L (21-32); CHLORIDE LEVEL 109 MEQ/L (98-107); CREATININE FOR GFR 0.76 MG/DL (0.70-1.30); GLOMERULAR FILTRATION RATE > 60.0 (>56); GLUCOSE, FASTING 102 MG/DL (70-100); MAGNESIUM LEVEL 1.7 MG/DL (1.8-2.4); POTASSIUM SERUM 3.5 MEQ/L (3.5-5.1); SODIUM LEVEL 141 MEQ/L (136-145)
[2019-02-23] MEDS ORDERED: MAG SULF 1GM/100ML (MAG RUN) 1 GM in APPROPRIATE DILUENT 1 EA IV ONE (06:00)
[2019-02-23] MEDS: NS 1,000 ML IV SCH ×2 (06:08→13:34)
[2019-02-23 08:00] VITALS: BP 134/70
[2019-02-23] MEDS: OMEPRAZOLE 20 MG CAP PO SCH (08:33)
[2019-02-23] MEDS: TAMSULOSIN 0.4 MG CAP PO SCH (08:33)
--- NOTE | 2019-02-23 09:22 | IPNPDOC ---
Text Note Date of Service The patient was seen on 02/23/19. NOTE Subjective: Patient is seen at bedside, there were no acute events over night. He had a colonoscopy yesterday with Dr. Armenta, which showed transverse colon ischemia. Pathology is pending. Patient states he hasn't had a bowel movement since before he showered last night. He is tolerating his clear liquid diet. He is still having diffuse abdominal pain, however states that it is improving. He denies nausea, vomiting, or fevers. Objective: Vitals: See below General: Resting comfortably in bed Lungs: Clear to auscultation bilaterally; no wheezes, rhonchi's, or rales Heart: Regular rate and rhythm; no murmurs, gallops, or rubs Abdomen: Soft, slightly distended. Normoactive bowel sounds are appreciated in all 4 quadrants. Moderate discomfort to palpation, especially in the left quadrants. No rebound or guarding. Laboratory data: See below Pathology: Pending Assessment: This is a 48-year-old male POD#3 s/p cardiac ablation; currently with transverse colon ischemic colitis. He has bloody stools and hematuria. Plan: Advanced to low residue diet. Patient was counseled on the potential to develop an ileus, he is to alert the nursing staff if he feels nauseous or has to vomit. Normal lactic acid is reassuring Continue IV fluids Continue IV antibiotics We will continue to follow along VS,Fishbone, I+O VS, Fishbone, I+O Laboratory Tests 02/23/19 04:37 Calcium Level 7.8 L 02/23/19 04:38 Red Blood Count 4.11 L, Mean Corpuscular Volume 92.5, Mean Corpuscular Hemoglobin 30.9, Mean Corpuscular Hemoglobin Concent 33.4, Red Cell Distribution Width 13.1 Vital Signs Date Time Temp Pulse Resp B/P (MAP) Pulse Ox O2 Delivery O2 Flow Rate FiO2 02/23/19 08:44 20 02/23/19 04:00 97.1 90 142/78 (99) 96 02/21/19 10:34 Room Air I&O- Last 24 Hours up to 6 AM 02/23/19 06:00 Intake Total 3745 ml Output Total 2575 ml Balance 1170 ml GME ATTESTATION GME ATTESTATION My faculty preceptor for this patient encounter was physically present during the encounter and was fully available. All aspects of the patient interview, examination, medical decision making process, and medical care plan development were reviewed and approved by the faculty preceptor. The faculty preceptor is aw are and concurs with the plan as stated in the body of this note and will attest to such by his/her cosignature. CORAZON SWAIN DO Feb 23, 2019 09:22
[2019-02-23] MEDS: CIPROFLOXACIN 400 MG in APPROPRIATE DILUENT 1 EA IV SCH ×2 (09:41→21:00)
[2019-02-23 12:00] VITALS: BP 125/71
--- NOTE | 2019-02-23 14:50 | IPNPDOC ---
Date Seen The patient was seen on 02/23/19. Progress Note SUBJECTIVE: Patient reports continued abdominal pain across his belly in a band like distribution. Patient also complains of blood in the stool persisting OBJECTIVE PHYSICAL EXAMINATION: VITAL SIGNS: Please see below. GENERAL: Pleasant middle-aged man lying flat in bed he does not appear to be in any acute distress whatsoever HEENT: Cranial nerves II through XII grossly intact moist mucous membranes no elevation and CVP CARDIOVASCULAR: S1-S2 regular rate and rhythm. RESPIRATORY: Clear to auscultation bilaterally. ABDOMINAL: Sounds are present abdomen soft is diffusely tender to even light palpation EXTREMITIES: No clubbing cyanosis or edema LABORATORY DATA, IMAGING STUDIES, MICROBIOLOGY: Please see below. DVT prophylaxis ordered?: Xarelto ASSESSMENT AND PLAN: This is a 48-year-old man with ischemic colitis. PROBLEMS: 1. Ischemic colitis: GI and general surgery help greatly appreciated, on colonoscopy and CT are suggestive of ischemic colitis placed clinical course s uggestive of this as well when patient was continued with anticoagulation and close monitoring his diet has been advanced and by general surgery he still has some pain but a normal lactic acid he also continues to have some blood in his stool. Patient had a GI bleed secondary to anticoagulation continue monitor his hemoglobin which has thus far been fairly stable. Continue with pain control. The patient is continued on empiric Cipro and Flagyl and gentle IV fluids normal saline at 75 mL an hour. 2. Abnormal troponin: Secondary to recent ablation, has known A. fib on anticoagulation as outlined above. 3. Dyslipidemia: Continue with statin. 4. Right iliac aneurysm/dissection: Restless surgical appreciated outpatient follow-up 5. Mood disorder: Continue with Lexapro 6. Gastroesophageal reflux disease: Continue with omeprazole 7. Atrial defibrillation: Rate controlled with atenolol anticoagulated 8. Benign prostatic hyperplasia: Continue with Flomax DISPOSITION: Pending clinical improvement. VS, I&O, 24H, Fishbone Vital Signs/I&O Vital Signs Date Time Temp Pulse Resp B/P (MAP) Pulse Ox O2 Delivery O2 Flow Rate FiO2 02/23/19 13:15 18 02/23/19 12:00 98.7 95 125/71 (89) 94 02/21/19 10:34 Room Air I&O- Last 24 Hours up to 6 AM 02/23/19 06:00 Intake Total 3745 ml Output Total 2575 ml Balance 1170 ml Laboratory Data 24H LABS Laboratory Tests 2 02/23/19 04:37: Anion Gap 5L, Glomerular Filtration Rate > 60.0, Blood Urea Nitrogen 8, Creatinine 0.76, Sodium Level 141, Potassium Level 3.5, Chloride Level 109H, Carbon Dioxide Level 27, Calcium Level 7.8L, Magnesium Level 1.7L 02/23/19 04:38: Nucleated Red Blood Cells % (auto) 0.0, Lactic Acid Level 0.6 CBC/BMP Laboratory Tests 02/23/19 04:37 Calcium Level 7.8 L 02/23/19 04:38 Red Blood Count 4.11 L, Mean Corpuscular Volume 92.5, Mean Corpuscular Hemoglobin 30.9, Mean Corpuscular Hemoglobin Concent 33.4, Red Cell Distribution Width 13.1 BRAD MONTALVO MD Feb 23, 2019 14:50
[2019-02-23 16:00] VITALS: BP 120/70
[2019-02-23 16:30] VITALS: BP 131/74
[2019-02-23] MEDS: RIVAROXABAN 20 MG TAB (XARELTO) PO SCH (19:08)
[2019-02-23] MEDS: ROSUVASTATIN 10 MG TAB (CRESTOR) PO SCH (20:58)
[2019-02-23] MEDS: traMADol 50 MG TAB PO PRN (20:59)
[2019-02-23] MEDS: ESCITALOPRAM OXALATE 10 MG TAB (LEXAPRO) PO SCH (20:59)
[2019-02-23 22:07] VITALS: BP 128/74
[2019-02-24] MEDS: NS 1,000 ML IV SCH ×2 (00:08→17:20)
[2019-02-24] MEDS: NORCO, ANEXSIA 5/325MG TABLET (HYDROcodone/ACETAMINOPHEN) PO PRN ×3 (00:13→23:42)
[2019-02-24 02:00] VITALS: BP 142/75
[2019-02-24] MEDS: metroNIDAZOLE 500 MG in APPROPRIATE DILUENT 1 EA IV SCH ×3 (02:24→18:48)
[2019-02-24] MEDS: MORPHINE 4 MG/ML 1ML VIAL/SYRINGE (J2270) IV PRN ×5 (02:33→21:12)
[2019-02-24 06:00] VITALS: BP 159/80
--- NOTE | 2019-02-24 08:33 | IPN ---
DATE: 02/24/2019 Th patient was diagnosed with ischemic colitis on his CT scan confirmed by gastroenterology and still is having some crampy abdominal pain and abdominal distention. However, he has been on a regular diet. He seems to have a more crampy abdominal pain, it is not a persistent pain. His white count fortunately is down, but at this point, he states that the pain medication does not seem to be cutting the pain as well as he would like. On his physical exam, he is distended, tender throughout the epigastric area with some guarding and without significant rebound. IMPRESSION AND PLAN: The patient has colitis and given it is ischemic colitis typically these are slower to resolve than infectious types. Given his presentation and his abdominal distention, h should be on a clear liquid diet until his abdominal pain resolves and his abdominal distention. I will give him some simethicone as well, but I anticipate with decreasing his by mouth intake, keeping him hydrated and keeping his antibiotics going, it should improve his abdominal tenderness, abdominal pain and white count quicker. Then, progressing his diet thereafter is a reasonable option with up to a low residue diet. In any case, the patient is doing adequately well at this point as expected for a significantly long segment of colitis.
[2019-02-24] MEDS: TAMSULOSIN 0.4 MG CAP PO SCH (09:08)
[2019-02-24] MEDS: SIMETHICONE 80 MG CHEW TAB PO SCH ×4 (09:08→21:00)
[2019-02-24] MEDS: OMEPRAZOLE 20 MG CAP PO SCH (09:08)
[2019-02-24 10:00] VITALS: BP 134/76
[2019-02-24] MEDS: CIPROFLOXACIN 400 MG in APPROPRIATE DILUENT 1 EA IV SCH ×2 (10:11→21:00)
[2019-02-24 10:50] LABS: BLOOD UREA NITROGEN 7 MG/DL (7-18); CALCIUM LEVEL 7.9 MG/DL (8.5-10.1); CARBON DIOXIDE LEVEL 27 MEQ/L (21-32); CHLORIDE LEVEL 105 MEQ/L (98-107); CREATININE FOR GFR 0.89 MG/DL (0.70-1.30); GLOMERULAR FILTRATION RATE > 60.0 (>56); GLUCOSE, FASTING 135 MG/DL (70-100); POTASSIUM SERUM 3.2 MEQ/L (3.5-5.1); SODIUM LEVEL 140 MEQ/L (136-145)
[2019-02-24 10:52] LABS: HEMOGLOBIN 12.6 g/dl (13.5-17.5); MEAN CORPUSCULAR HEMOGLOBIN 30.3 pg (27.0-33.0); MEAN CORPUSCULAR HGB CONC 33.2 g/dl (32.0-36.5); MEAN CORPUSCULAR VOLUME 91.3 fl (80.0-96.0); PLATELET COUNT, AUTOMATED 166 10^3/uL (150-450); RED BLOOD COUNT 4.16 10^6/uL (4.30-6.10); WHITE BLOOD COUNT 10.8 10^3/uL (4.0-10.0)
[2019-02-24 14:00] VITALS: BP 134/77
--- NOTE | 2019-02-24 15:25 | IPNPDOC ---
Date Seen The patient was seen on 02/24/19. Progress Note SUBJECTIVE: Patient reports continued abdominal pain he tells me it was worse yesterday after having a more solid diet. He'll also tells me that his he did have a bowel movement this morning but there is no obvious blood in it and he thinks it is normalizing otherwise he has no specific complaints at this time OBJECTIVE PHYSICAL EXAMINATION: VITAL SIGNS: Please see below. GENERAL: Pleasant middle-aged man sitting up in bed he does not appear to be in any acute distress whatsoever HEENT: Cranial nerves II through XII grossly intact moist mucous membranes no elevation and CVP CARDIOVASCULAR: S1-S2 regular rate and rhythm. RESPIRATORY: Clear to auscultation bilaterally. ABDOMINAL: Sounds are present abdomen soft is diffusely tender to even light palpation EXTREMITIES: No clubbing cyanosis or edema LABORATORY DATA, IMAGING STUDIES, MICROBIOLOGY: Please see below. DVT prophylaxis ordered?: Xarelto ASSESSMENT AND PLAN: This is a 48-year-old man with ischemic colitis. PROBLEMS: 1. Ischemic colitis: GI and general surgery help greatly appreciated, on colonoscopy and CT findings were suggestive of ischemic colitis. He was unable to tolerate a diet and as such she has been transitioned back to clear liquids his lactic acid this afternoon is normalized continue to monitor him closely he is continued on anticoagulation as per l. recommendations from subspecialty consultants his hemoglobinhas thus far been fairly stable. Continue with pain control. The patient is continued on empiric Cipro and Flagyl and gentle IV fluids normal saline at 75 mL an hour. 2. Abnormal troponin: Secondary to recent ablation, has known A. fib on anticoagulation as outlined above. 3. Dyslipidemia: Continue with statin. 4. Right iliac aneurysm/dissection: Restless surgical appreciated outpatient follow-up 5. Mood disorder: Continue with Lexapro 6. Gastroesophageal reflux disease: Continue with omeprazole 7. Atrial defibrillation: Rate controlled with atenolol anticoagulated 8. Benign prostatic hyperplasia: Continue with Flomax 9. Hypokalemia: Check repleted check magnesium level DISPOSITION: Pending clinical improvement. VS, I&O, 24H, Fishbone Vital Signs/I&O Vital Signs Date Time Temp Pulse Resp B/P (MAP) Pulse Ox O2 Delivery O2 Flow Rate FiO2 02/24/19 14:00 97.6 91 18 134/77 (96) 100 02/21/19 10:34 Room Air I&O- Last 24 Hours up to 6 AM 02/24/19 05:59 Intake Total 2445 ml Output Total 2100 ml Balance 345 ml Laboratory Data 24H LABS Laboratory Tests 2 02/23/19 22:22: Bedside Glucose (Misc Panel) 108H 02/24/19 10:12: Nucleated Red Blood Cells % (auto) 0.0, Anion Gap 8, Glomerular Filtration Rate > 60.0, Lactic Acid Level 2.1*H, Blood Urea Nitrogen 7, Creatinine 0.89, Sodium Level 140, Potassium Level 3.2L, Chloride Level 105, Carbon Dioxide Level 27, Calcium Level 7.9L 02/24/19 14:33: Lactic Acid Followup at 4 Hours 1.0 CBC/BMP Laboratory Tests 02/24/19 10:12 Red Blood Count 4.16 L, Mean Corpuscular Volume 91.3, Mean Corpuscular Hemoglobin 30.3, Mean Corpuscular Hemoglobin Concent 33.2, Red Cell Distribution Width 12.9, Calcium Level 7.9 L BRAD MONTALVO MD Feb 24, 2019 15:25
[2019-02-24] MEDS ORDERED: IBUPROFEN 400 MG TAB PO PRN (15:45)
[2019-02-24] MEDS ORDERED: POTASSIUM CHLORIDE 10% LIQ 20 MEQ/15 ML UDC PO ONE (16:00)
[2019-02-24] MEDS: ROSUVASTATIN 10 MG TAB (CRESTOR) PO SCH (20:59)
[2019-02-24] MEDS: ESCITALOPRAM OXALATE 10 MG TAB (LEXAPRO) PO SCH (21:00)
[2019-02-24 22:00] VITALS: BP 128/78
[2019-02-25 02:00] VITALS: BP 135/72
[2019-02-25] MEDS: metroNIDAZOLE 500 MG in APPROPRIATE DILUENT 1 EA IV SCH ×3 (02:54→17:10)
[2019-02-25 06:00] VITALS: BP 126/87
[2019-02-25 07:46] LABS: HEMATOCRIT 36.3 % (42.0-52.0); HEMOGLOBIN 12.3 g/dl (13.5-17.5); MEAN CORPUSCULAR HEMOGLOBIN 30.9 pg (27.0-33.0); MEAN CORPUSCULAR HGB CONC 33.9 g/dl (32.0-36.5); MEAN CORPUSCULAR VOLUME 91.2 fl (80.0-96.0); PLATELET COUNT, AUTOMATED 165 10^3/uL (150-450); RED BLOOD COUNT 3.98 10^6/uL (4.30-6.10)
[2019-02-25] MEDS ORDERED: CALCIUM CARBONATE 500 MG CHEW U/D PO ONE (08:00)
[2019-02-25 08:08] LABS: BLOOD UREA NITROGEN 6 MG/DL (7-18); CALCIUM LEVEL 8.3 MG/DL (8.5-10.1); CARBON DIOXIDE LEVEL 26 MEQ/L (21-32); CHLORIDE LEVEL 108 MEQ/L (98-107); CREATININE FOR GFR 0.78 MG/DL (0.70-1.30); GLOMERULAR FILTRATION RATE > 60.0 (>56); GLUCOSE, FASTING 98 MG/DL (70-100); POTASSIUM SERUM 3.5 MEQ/L (3.5-5.1); SODIUM LEVEL 141 MEQ/L (136-145); TROPONIN I 0.38 NG/ML (< 0.10)
[2019-02-25] MEDS: MORPHINE 4 MG/ML 1ML VIAL/SYRINGE (J2270) IV PRN ×2 (08:52→18:34)
[2019-02-25] MEDS: OMEPRAZOLE 20 MG CAP PO SCH (08:55)
[2019-02-25] MEDS: TAMSULOSIN 0.4 MG CAP PO SCH (08:55)
[2019-02-25] MEDS: SIMETHICONE 80 MG CHEW TAB PO SCH ×4 (08:55→21:50)
[2019-02-25 10:00] VITALS: BP 140/86
--- NOTE | 2019-02-25 10:13 | ECGEPIP ---
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 No significant change compared with 02/21/2019 at 4:46 AM. Electronically Signed On 02-25-2019 10:13:18 EDT by Anderson Arroyo
[2019-02-25] MEDS: CIPROFLOXACIN 400 MG in APPROPRIATE DILUENT 1 EA IV SCH ×2 (10:28→21:47)
--- NOTE | 2019-02-25 11:38 | IPN ---
DATE: 02/25/2019 CHIEF COMPLAINT: Diarrhea, abdominal pain and ischemic transverse colitis. Subjectively, the patient seems to have had some improvement but still is taking some pain medication. He is still uncomfortable and feeling bloated at this time but he states things are better. He noticed some chest pain and some reflux issues which suggest that the inflammatory process with suggest that the inflammatory process is still present. However, looking at his white count these much better. On his physical exam he is mildly distended compared to yesterday. He is better and his tenderness is much better than yesterday but he still is tender. IMPRESSION AND PLAN The patient has resolving ischemic colitis and overall at this point I would feel that the best option for him is to use maintain him on clear liquid diet and start a low-residue diet tomorrow if he tolerates that low-residue diet for 24 hours then discharge him home. I have instructed him that given the type of inflammatory process in the amount of damage associated with the ischemia of present on the studies thus far I would suggest that this may take a while before he resolves his current issue and more importantly, I anticipate he will probably be mildly symptomatic with some crampy abdominal pain and discomfort over the next several weeks. I do feel that continuing on by mouth antibiotics after discharge for a 5-7 day course is reasonable. He can follow up with me on an as needed basis and follow up with GI for his ischemic colitis issues.
[2019-02-25] MEDS: NORCO, ANEXSIA 5/325MG TABLET (HYDROcodone/ACETAMINOPHEN) PO PRN ×2 (12:18→21:49)
--- NOTE | 2019-02-25 13:05 | IPNPDOC ---
Date Seen The patient was seen on 02/25/19. Progress Note SUBJECTIVE: Patient reports some chest pain at this time. He tells me that he has this often and has been evaluated many times for his CP and it has always not been cardiac related in the past. He denies any significant belly pain at this time. OBJECTIVE PHYSICAL EXAMINATION: VITAL SIGNS: Please see below. GENERAL: Pleasant middle-aged man sitting up in bed he does not appear to be in any acute distress whatsoever AAOx3 HEENT: Cranial nerves II through XII grossly intact moist mucous membranes no elevation and CVP CARDIOVASCULAR: S1-S2 regular rate and rhythm. RESPIRATORY: Clear to auscultation bilaterally. ABDOMINAL: Sounds are present abdomen soft is diffusely tender to even light palpation EXTREMITIES: No cyanosis or edema LABORATORY DATA, IMAGING STUDIES, MICROBIOLOGY: Please see below. DVT prophylaxis ordered?: Huseyin ASSESSMENT AND PLAN: This is a 48-year-old man with ischemic colitis. PROBLEMS: 1. Ischemic colitis: GI and general surgery help greatly appreciated. He was unable to tolerate a diet yesterday and as such she has been transitioned back to clear liquids his lactic acid has normalized continue to monitor him closely. The patient is continued on empiric Cipro and Flagyl and gentle IV fluids normal saline at 75 mL an hour now that he is tolerating CLD for several days may consider d/cing IVF 2. Chest pain: non cardiac, no ekg changes, cardiac enzymes downtrending from recent ablation, resolved with tums, more likely GI related. 3. Dyslipidemia: Continue with statin. 4. Right iliac aneurysm/dissection: Restless surgical appreciated outpatient follow-up 5. Mood disorder: Continue with Lexapro 6. Gastroesophageal reflux disease: Continue with omeprazole 7. Atrial defibrillation: Rate controlled with atenolol, anticoagulation held at this time 8. Benign prostatic hyperplasia: Continue with Flomax 9. Hypokalemia: Check repleted check magnesium level 10. Hematuria: Given he has had blood in his stools and yesterday afternoon blood in the urine as well, active bleeding being contraindication to anticoagulation, ideally consider restarting in 1-2 days once bleeding has ceased. DISPOSITION: Pending clinical improvement. VS, I&O, 24H, Fishbone Vital Signs/I&O Vital Signs Date Time Temp Pulse Resp B/P (MAP) Pulse Ox O2 Delivery O2 Flow Rate FiO2 02/25/19 12:18 20 02/25/19 10:00 98.3 89 140/86 (104) 97 02/21/19 10:34 Room Air I&O- Last 24 Hours up to 6 AM 02/25/19 06:00 Intake Total 2965 ml Output Total 2750 ml Balance 215 ml Laboratory Data 24H LABS Laboratory Tests 2 02/24/19 14:33: Lactic Acid Followup at 4 Hours 1.0 02/25/19 07:29: Nucleated Red Blood Cells % (auto) 0.0, Anion Gap 7L, Glomerular Filtration Rate > 60.0, Lactic Acid Level 0.6, Blood Urea Nitrogen 6L, Creatinine 0.78, Sodium Level 141, Potassium Level 3.5, Chloride Level 108H, Carbon Dioxide Level 26, Calcium Level 8.3L, Troponin I 0.38H 02/25/19 11:19: Troponin I 0.31H CBC/BMP Laboratory Tests 02/25/19 07:29 Red Blood Count 3.98 L, Mean Corpuscular Volume 91.2, Mean Corpuscular Hemoglobin 30.9, Mean Corpuscular Hemoglobin Concent 33.9, Red Cell Distribution Width 12.8, Calcium Level 8.3 L BRAD MONTALVO MD Feb 25, 2019 13:05
[2019-02-25 14:00] VITALS: BP 144/85
[2019-02-25 18:00] VITALS: BP 138/82
[2019-02-25] MEDS: ROSUVASTATIN 10 MG TAB (CRESTOR) PO SCH (21:00)
[2019-02-25] MEDS: ESCITALOPRAM OXALATE 10 MG TAB (LEXAPRO) PO SCH (21:50)
[2019-02-25 22:00] VITALS: BP 132/83
[2019-02-26] MEDS ORDERED: NORCO, ANEXSIA 5/325MG TABLET (HYDROcodone/ACETAMINOPHEN) PO ONE
[2019-02-26 02:00] VITALS: BP 134/78
[2019-02-26] MEDS: metroNIDAZOLE 500 MG in APPROPRIATE DILUENT 1 EA IV SCH (03:58)
[2019-02-26 06:00] VITALS: BP 132/83
[2019-02-26 06:28] LABS: HEMATOCRIT 36.4 % (42.0-52.0); HEMOGLOBIN 12.2 g/dl (13.5-17.5); MEAN CORPUSCULAR HEMOGLOBIN 30.3 pg (27.0-33.0); MEAN CORPUSCULAR HGB CONC 33.5 g/dl (32.0-36.5); MEAN CORPUSCULAR VOLUME 90.5 fl (80.0-96.0); PLATELET COUNT, AUTOMATED 183 10^3/uL (150-450); RED BLOOD COUNT 4.02 10^6/uL (4.30-6.10); WHITE BLOOD COUNT 9.1 10^3/uL (4.0-10.0)
[2019-02-26 06:52] LABS: BLOOD UREA NITROGEN 7 MG/DL (7-18); CALCIUM LEVEL 8.1 MG/DL (8.5-10.1); CARBON DIOXIDE LEVEL 27 MEQ/L (21-32); CHLORIDE LEVEL 108 MEQ/L (98-107); CREATININE FOR GFR 0.74 MG/DL (0.70-1.30); GLOMERULAR FILTRATION RATE > 60.0 (>56); GLUCOSE, FASTING 99 MG/DL (70-100); LDH LACTATE DEHYDROGENASE 172 U/L (87-241); POTASSIUM SERUM 3.4 MEQ/L (3.5-5.1); SODIUM LEVEL 141 MEQ/L (136-145)
--- NOTE | 2019-02-26 07:40 | IPNPDOC ---
Text Note Date of Service The patient was seen on 02/26/19. NOTE No acute events over the weekend. He is tolerating the clq diet. Abd pain is much improved. Denies nausea, emesis, fevers. VSSAF NAD abd - soft, non distended, TTP upper abdomen mild, no rebound or guarding labs - see below A) 48y/o male s/p cardiac ablation currently with transverse colon ischemic colitis bloody stools hematuria P) low residue diet PO ABX d/c home, and follow up as needed Brandon aBl DO VS,Trente, I+O VS, Fishbone, I+O Laboratory Tests 02/26/19 05:56 Red Blood Count 4.02 L, Mean Corpuscular Volume 90.5, Mean Corpuscular Hemoglobin 30.3, Mean Corpuscular Hemoglobin Concent 33.5, Red Cell Distribution Width 12.6, Calcium Level 8.1 L Vital Signs Date Time Temp Pulse Resp B/P (MAP) Pulse Ox O2 Delivery O2 Flow Rate FiO2 02/26/19 06:05 16 02/26/19 06:00 98.6 84 132/83 (99) 93 02/21/19 10:34 Room Air I&O- Last 24 Hours up to 6 AM 02/26/19 06:00 Intake Total 1795 ml Output Total 1550 ml Balance 245 ml KARY BAL DO Feb 26, 2019 07:40
[2019-02-26] MEDS: NORCO, ANEXSIA 5/325MG TABLET (HYDROcodone/ACETAMINOPHEN) PO PRN ×2 (09:12→18:47)
[2019-02-26] MEDS: CIPROFLOXACIN 500 MG TAB PO SCH ×2 (09:14→16:54)
[2019-02-26] MEDS: TAMSULOSIN 0.4 MG CAP PO SCH (09:15)
[2019-02-26] MEDS: metroNIDAZOLE (FLAGYL) 500 MG TAB PO SCH ×3 (09:15→23:33)
[2019-02-26] MEDS: OMEPRAZOLE 20 MG CAP PO SCH (09:16)
[2019-02-26] MEDS: SIMETHICONE 80 MG CHEW TAB PO SCH ×4 (09:16→23:34)
[2019-02-26 10:00] VITALS: BP 133/80
[2019-02-26 14:00] VITALS: BP 145/84
[2019-02-26] MEDS: MORPHINE 4 MG/ML 1ML VIAL/SYRINGE (J2270) IV PRN (14:49)
--- NOTE | 2019-02-26 14:54 | IPNPDOC ---
Date Seen The patient was seen on 02/26/19. Progress Note SUBJECTIVE: Patient reports that he is still having some dull nagging abdominal pain and small amounts of blood in his stool. He was able to tolerate a clear liquid diet over the weekend so he will be transitioned to a low residue diet today and PO antibiotics prior to discharge. Otherwise, he has no other complaints and states he would like to be able to go home soon. The chest pain that he complained of yesterday has resolved. OBJECTIVE PHYSICAL EXAMINATION: VITAL SIGNS: Please see below. GENERAL: sitting on the edge of his bed, in no acute distress, calm, cooperative CARDIOVASCULAR: RRR, no murmurs/rubs/gallops, normal S1/S2 RESPIRATORY: clear to auscultation bilaterally ABDOMINAL: tenderness to deep palpation diffusely, soft, +BS EXTREMITIES: no clubbing/cyanosis/edema NEUROLOGICAL: CN 2-12 intact without any focal deficits PSYCHOLOGICAL: normal mood/affect LABORATORY DATA, IMAGING STUDIES, MICROBIOLOGY: Please see below. DVT prophylaxis ordered?: Xarelto, currently being held ASSESSMENT AND PLAN: This is a 48 YO M with history of AF s/p ablation who presented with rectal bleeding found to have ischemic transverse colitis. PROBLEMS: 1. Ischemic colitis: -patient was tolerating clear liquid diet so was transitioned to soft low residue diet today. He states he had some difficulty so will keep him for observation for one additional day -Continue Cipro and Flagyl with plan to complete course after d/c -Pain management with [place] and IV morphine -General surgery consulted. Appreciate recommendations 2. Chest pain: resolved. Likely 2/2 acid reflux -continue Omeprazole 3. HLD: -continue Rosuvastatin 4. R iliac artery aneurysm/dissection: Stable -will follow up with surgery outpatient 5. Mood disorder: -Continue lexapro 6. GERD: -continue omeprazole 7. Atrial fibrillation: VSS -Holding anticoagulation until discharge -Continue Atenolol 8. BPH: -continue Flomax 9. Hypokalemia: K today 3.4 -replaced 10. History of Hematuria: H/H stable today Dispo: Possible d/c tomorrow pending clinical improvement VS, I&O, 24H, Fishbone Vital Signs/I&O Vital Signs Date Time Temp Pulse Resp B/P (MAP) Pulse Ox O2 Delivery O2 Flow Rate FiO2 4/15/19 10:00 98.4 95 17 133/80 (97) 96 02/21/19 10:34 Room Air I&O- Last 24 Hours up to 6 AM 02/26/19 05:59 Intake Total 2170 ml Output Total 2150 ml Balance 20 ml Laboratory Data 24H LABS Laboratory Tests 2 02/26/19 05:56: Nucleated Red Blood Cells % (auto) 0.0, Anion Gap 6L, Glomerular Filtration Rate > 60.0, Blood Urea Nitrogen 7, Creatinine 0.74, Sodium Level 141, Potassium Level 3.4L, Chloride Level 108H, Carbon Dioxide Level 27, Calcium Level 8.1L, Lactate Dehydrogenase 172 CBC/BMP Laboratory Tests 02/26/19 05:56 Red Blood Count 4.02 L, Mean Corpuscular Volume 90.5, Mean Corpuscular Hemoglobin 30.3, Mean Corpuscular Hemoglobin Concent 33.5, Red Cell Distribution Width 12.6, Calcium Level 8.1 L GME ATTESTATION GME ATTESTATION My faculty preceptor for this patient encounter was physically present during the encounter and was fully available. All aspects of the patient interview, examination, medical decision making process, and medical care plan development were reviewed and approved by the faculty preceptor. The faculty preceptor is aware and concurs with the plan as stated in the body of this note and will attest to such by his/her cosignature. KACEY LO MD Feb 26, 2019 14:54
[2019-02-26] MEDS ORDERED: POTASSIUM CHLORIDE 10 MEQ SR TABLET PO ONE (16:00)
[2019-02-26 18:00] VITALS: BP 142/95
[2019-02-26 22:00] VITALS: BP 138/79
[2019-02-26] MEDS: ROSUVASTATIN 10 MG TAB (CRESTOR) PO SCH (23:33)
[2019-02-26] MEDS: ESCITALOPRAM OXALATE 10 MG TAB (LEXAPRO) PO SCH (23:33)
[2019-02-27] MEDS: NORCO, ANEXSIA 5/325MG TABLET (HYDROcodone/ACETAMINOPHEN) PO PRN (04:05)
[2019-02-27 06:00] VITALS: BP 154/76
[2019-02-27] MEDS: CIPROFLOXACIN 500 MG TAB PO SCH (06:05)
[2019-02-27 06:42] LABS: HEMATOCRIT 37.7 % (42.0-52.0); HEMOGLOBIN 12.7 g/dl (13.5-17.5); MEAN CORPUSCULAR HEMOGLOBIN 30.5 pg (27.0-33.0); MEAN CORPUSCULAR HGB CONC 33.7 g/dl (32.0-36.5); MEAN CORPUSCULAR VOLUME 90.4 fl (80.0-96.0); PLATELET COUNT, AUTOMATED 206 10^3/uL (150-450); RED BLOOD COUNT 4.17 10^6/uL (4.30-6.10)
[2019-02-27 06:56] LABS: BLOOD UREA NITROGEN 9 MG/DL (7-18); CALCIUM LEVEL 8.4 MG/DL (8.5-10.1); CARBON DIOXIDE LEVEL 27 MEQ/L (21-32); CHLORIDE LEVEL 107 MEQ/L (98-107); CREATININE FOR GFR 0.85 MG/DL (0.70-1.30); GLOMERULAR FILTRATION RATE > 60.0 (>56); GLUCOSE, FASTING 105 MG/DL (70-100); LDH LACTATE DEHYDROGENASE 180 U/L (87-241); POTASSIUM SERUM 3.7 MEQ/L (3.5-5.1); SODIUM LEVEL 140 MEQ/L (136-145)
[2019-02-27] MEDS: metroNIDAZOLE (FLAGYL) 500 MG TAB PO SCH (09:35)
[2019-02-27] MEDS: TAMSULOSIN 0.4 MG CAP PO SCH (09:35)
[2019-02-27] MEDS: OMEPRAZOLE 20 MG CAP PO SCH (09:36)
[2019-02-27] MEDS: SIMETHICONE 80 MG CHEW TAB PO SCH (09:36)
[2019-02-27 10:00] VITALS: BP 136/78
[2019-02-27] MEDS ORDERED: CIPR-249 PO (11:29)
[2019-02-27] MEDS ORDERED: FLAG500T PO (11:29)
[2019-02-27] MEDS ORDERED: TRAM50TA2 PO (11:29)
--- NOTE | 2019-02-27 11:41 | DS.PDOC ---
Discharge Summary General Date of Admission Feb 21, 2019 at 08:10 Date of Discharge 02/27/19 Attending Physician: DEB MIX MD Specialist/Consultants Involve: KARY LOCKHART DO Specialist/Consultants Involve Dr. Rogelio Ortiz Jr. Discharge Summary PROCEDURES PERFORMED DURING STAY: Colonoscopy- Findings: The perianal and digital rectal examinations were normal. Diffuse severe mucosal changes characterized by altered vascularity, congestion (edema), erythema, friability and confluent ulcerations were found in the transverse colon. Biopsies were taken with a cold forceps for histology. A few small-mouthed diverticula were found in the sigmoid colon. Non-bleeding external and internal hemorrhoids were found during endoscopy. The hemorrhoids were medium-sized. Impression: - Preparation of the colon was fair. - Diffuse severe mucosal changes were found in the transverse colon secondary to ischemic colitis. Biopsied. - Mild diverticulosis in the sigmoid colon. - Non-bleeding external and internal hemorrhoids. ADMITTING DIAGNOSES: 1. Colitis Ischemic vs. Infectious 2. Chest pain 3. HLD 4. R. iliac artery aneursym/dissection 5. Mood disorder 6. GERD 7. Atrial Fibrillation 8. GERD 9. BPH DISCHARGE DIAGNOSES: 1. Colitis Ischemic vs. Infectious 2. Chest pain 3. HLD 4. R. iliac artery aneursym/dissection 5. Mood disorder 6. GERD 7. Atrial Fibrillation 8. GERD 9. BPH COMPLICATIONS/CHIEF COMPLAINT: Atrial Fibrillation Bph Colitis Gi Bleeding. HISTORY OF PRESENT ILLNESS: "Patient is a 48-year-old male with past medical history of atrial fibrillation status post ablation yesterday, RICH, asthma, hyperlipidemia presented to ER with complaints of rectal bleeding since last night. Patient was started on Xarelto yesterday post cardiac ablation for atrial fibrillation and developed bleeding about midnight yesterday following a bowel movement. He also had another episode ER with bright red blood. Patient complained of diffuse abdominal pain since last night a social with some nausea and vomiting otherwise denies any other complaints including fever, chills. In ER, hemoglobin was noted to be above [address] of abdomen is concerning for colitis/suspected ischemic colitis as well as evidence of right iliac aneurysmal dilatation along with dissection." HOSPITAL COURSE: Patient's a 48-year-old male with past medical history of A. fib on Xarelto presented with GI bleeding. CT scan suggestive of ischemic colitis and patient was evaluated by both surgery as well as GI. Patient underwent colonoscopy with finding suggestive of some ischemic colitis. Patient was transfused during course of admission and has improved significantly in pain as well as bleeding per rectum. CT scan also showed evidence of aneurysm in the right common iliac as well as short segment dissection into the proximal right e xternal iliac artery. Vascular had seen the patient and recommended patient to be follow-up in 2 weeks for ultrasound. Patient is now feeling much better and ready to go home. We'll discharge patient for follow-up with PCP as well as GI in 4-6 weeks, to resume home dose Xarelto. To complete 7 more days of by mouth antibiotics Cipro and Flagyl. DISCHARGE MEDICATIONS: Please see below. ALLERGIES: Please see below. PHYSICAL EXAMINATION ON DISCHARGE: VITAL SIGNS: Please see below. General: No acute distress, Alert Eyes: Normal sclera, EOMI, JAE HENT: Atraumatic, neck supple, moist mucous membranes Cardiovascular: Normal rate, normal rhythm. No murmurs appreciated. Pulmonary: Clear to auscultation b/l, no wheezing GI: Soft, nontender, nondistended Skin: Warm and dry Neuro: CN grossly intact. No focal deficits. Strengths equal b/l. Psych: oriented x 3 LABORATORY DATA: Please see below. IMAGING: CT Abdomen/Pelvis- ABDOMEN and PELVIS: Intraperitoneal space: There is no evidence of free intraperitoneal or pelvic fluid. There is no free intraperitoneal air. Bones/joints: There is a stable nonaggressive lesion in the right ilium. No suspicious osseous lesions. No acute fractures or dislocations. Soft tissues: There is nonspecific stranding in the superficial soft tissues in the right inguinal region which was not present on the prior exam. Deeper soft tissue changes are unchanged and likely related to a right inguinal hernia repair. Vasculature: The aorta demonstrates mild atherosclerotic calcification. There is dilation of the right common iliac artery to 2.6 cm and there is a short segment dissection of the right common iliac artery, extending into the proximal right external iliac artery. The dilation and dissection appearance unchanged compared to the prior exam. Lymph nodes: Normal. No enlarged lymph nodes. IMPRESSION: 1. Long segment thickening of the colon from hepatic flexure through the mid left colon, consistent with a colitis. Ischemic colitis is possible based on the distribution. 2. 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 ACTIVITY: [As tolerated]. DIET: Regular diet DISCHARGE PLAN: Complete course of PO Abx cipro and flagyl. Follow up with PCP and GI, Surgery as needed. Follow with vascular surgery/Dr. Coto's office in 2 weeks. DISPOSITION: Home. DISCHARGE INSTRUCTIONS: Complete course of PO Abx cipro and flagyl. Follow up with PCP and GI, Surgery as needed. Follow with vascular surgery/Dr. Coto's office in 2 weeks. ITEMS TO FOLLOWUP ON ON OUTPATIENT: 1. Pathology results from Colonoscopy biopsy. DISCHARGE CONDITION: [Stable]. TIME SPENT ON DISCHARGE: Greater than 32 minutes. Vital Signs/I&Os Vital Signs Date Time Temp Pulse Resp B/P (MAP) Pulse Ox O2 Delivery O2 Flow Rate FiO2 02/27/19 10:00 97.3 95 16 136/78 (97) 97 02/21/19 10:34 Room Air I&O- Last 24 Hours up to 6 AM 02/27/19 06:00 Intake Total 1390 ml Output Total 2000 ml Balance -610 ml Laboratory Data Labs 24H Laboratory Tests 2 02/27/19 05:48: Nucleated Red Blood Cells % (auto) 0.0, Anion Gap 6L, Glomerular Filtration Rate > 60.0, Blood Urea Nitrogen 9, Creatinine 0.85, Sodium Level 140, Potassium Level 3.7, Chloride Level 107, Carbon Dioxide Level 27, Calcium Level 8.4L, Lactate Dehydrogenase 180 CBC/BMP Laboratory Tests 02/27/19 05:48 Red Blood Count 4.17 L, Mean Corpuscular Volume 90.4, Mean Corpuscular Hemoglobin 30.5, Mean Corpuscular Hemoglobin Concent 33.7, Red Cell Distribution Width 12.6, Calcium Level 8.4 L Discharge Medications Scheduled Aspirin (Aspirin EC) 325 Mg Tablet.dr, 325 MG PO DAILY, (Reported) Ciprofloxacin HCl (Cipro) 500 Mg Tablet, 500 MG PO BID@ Escitalopram Oxalate (Escitalopram Oxalate) 10 Mg Tablet, 20 MG PO QHS, (Reported) Flecainide Acetate (Flecainide Acetate) 100 Mg Tablet, 100 MG PO BID, (Reported) Metronidazole (Flagyl) 500 Mg Tablet, 500 MG PO TID Omeprazole (Omeprazole) 40 Mg Capsule.dr, 40 MG PO DAILY, (Reported) Rivaroxaban (Xarelto) 20 Mg Tablet, 20 MG PO QHS, (Reported) STARTED TAKING YESTERDAY AFTER PROCEDURE Rosuvastatin Calcium (Rosuvastatin Calcium) 20 Mg Tablet, 20 MG PO QHS, (Reported) Tamsulosin HCl (Flomax) 0.4 Mg Capsule, 0.8 MG PO DAILY, (Reported) Scheduled PRN Atenolol (Atenolol) 50 Mg Tablet, 50 MG PO BID PRN for HIGH BLOOD PRESSURE, (Reported) Tramadol HCl (Tramadol HCl) 50 Mg Tablet, 50 MG PO Q8HP PRN for MODERATE PAIN (PS 5-7) Allergies Coded Allergies: No Known Allergies (Unverified , 02/21/19) DEB MIX MD Feb 27, 2019 11:41
== END 2019-02-27 12:46 | disposition home or self-care (01) | DRG 253 ==
LOC: M ED 01:45 → M ED INP 08:10 → M PCU 11:00 → M MSPAV 02-23 16:16
PROVIDERS: ADMIT Student in an Organized Health Care Education/Training Program; ATTEND Student in an Organized Health Care Education/Training Program
PROC: 0DBL8ZX Excision of Transverse Colon, Via Natural or Artificial Opening Endoscopic, Diagnostic (ICD-10-PCS; principal; 2019-02-22 14:00)
DX: K92.2 Gastrointestinal hemorrhage, unspecified (principal); I77.72 Dissection of iliac artery; K55.9 Vascular disorder of intestine, unspecified; I72.3 Aneurysm of iliac artery; I48.91 Unspecified atrial fibrillation; A09 Infectious gastroenteritis and colitis, unspecified; E86.0 Dehydration; K21.9 Gastro-esophageal reflux disease without esophagitis; N40.0 Benign prostatic hyperplasia without lower urinary tract symptoms; F39 Unspecified mood [affective] disorder; G47.33 Obstructive sleep apnea (adult) (pediatric); J45.909 Unspecified asthma, uncomplicated; E78.5 Hyperlipidemia, unspecified; Z79.82 Long term (current) use of aspirin; Z79.899 Other long term (current) drug therapy; Z87.891 Personal history of nicotine dependence; K57.30 Diverticulosis of large intestine without perforation or abscess without bleeding; K64.4 Residual hemorrhoidal skin tags; K64.8 Other hemorrhoids; E87.6 Hypokalemia

== ENCOUNTER 2019-04-22 14:31 | Emergency (ER) | payer OTHER, BC ==
[~2019-04-22] VITALS: Ht 185.4 cm; Wt 95.5 kg
[~2019-04-22 14:31] MED LIST changes: +CIPR-249 PO; +ESCI10TA2 PO; +FLAG500T PO; +FLOM0.4C39 PO; +OMEP40CA2 PO; +XARE1TAB PO; +XARE20TA PO
--- NOTE | 2019-04-22 15:10 | REP ---
CT cervical spine without contrast HISTORY: Trauma COMPARISON: None There is no acute fracture or subluxation. Disc bulges are present at the C2-3 and C4-5 levels. Disc bulges with associated osteophyte formation are present at the C3-4, C5-6 and C6-7 levels. There is minimal narrowing of the spinal canal. Uncinate process hypertrophy is present at the C2-3, C3-4, C5-6 and C6-7 levels. This produces minimal to moderate narrowing of the neural foramina. The C5-6 and C6-7 intervertebral discs are decreased in height consistent with disc degeneration. IMPRESSION: 1. There is no acute fracture or subluxation. 2. There is cervical spondylosis at the C2-3 through C6-7 levels. Electronically Signed by Austen Smith MD 04/22/2019 03:01 P
--- NOTE | 2019-04-22 15:13 | REP ---
CT Head without contrast HISTORY: Trauma COMPARISON: 08/03/2010 There is no intraparenchymal hemorrhage, acute infarct, mass or midline shift. The ventricular system is normal in appearance. There is no extra cerebral collection. There is no fracture. Minimal mucosal thickening is present in the ethmoid and sphenoid sinuses. IMPRESSION: There is no intracranial lesion. Electronically Signed by Austen Smith MD 04/22/2019 03:04 P
[2019-04-22 15:50] VITALS: BP 135/91
--- NOTE | 2019-04-23 07:32 | REP ---
RIGHT WRIST, FOUR VIEWS: HISTORY: Trauma. There is no acute fracture or dislocation. The joint spaces are normal in appearance. IMPRESSION:There is no acute fracture or dislocation. Electronically Signed by Austen Smith MD 04/23/2019 07:18 A
--- NOTE | 2019-04-23 07:32 | REP ---
RIGHT SHOULDER, THREE VIEWS: HISTORY: Trauma. There is no acute fracture or dislocation. The joint spaces are normal in appearance. IMPRESSION: There is no acute fracture or dislocation. Electronically Signed by Austen Smith MD 04/23/2019 07:17 A
== END 2019-04-22 15:53 | disposition home or self-care (01) ==
LOC: M ED 14:31 → EDBD 14:31 → M ED 15:53
DX: S63.501A Unspecified sprain of right wrist, initial encounter (principal); S49.91XA Unspecified injury of right shoulder and upper arm, initial encounter; M47.812 Spondylosis without myelopathy or radiculopathy, cervical region; V86.11XA Passenger of ambulance or fire engine injured in traffic accident, initial encounter; Y92.9 Unspecified place or not applicable; Y93.9 Activity, unspecified; Y99.9 Unspecified external cause status; Z79.02 Long term (current) use of antithrombotics/antiplatelets; Z79.899 Other long term (current) drug therapy

== ENCOUNTER → 2019-05-02 | Outpatient (CLI) | payer BC ==
[2019-05-02 11:07] LABS: ALBUMIN 3.6 GM/DL (3.2-5.2); ALT/SGPT 49 U/L (12-78); BILIRUBIN,TOTAL 0.4 MG/DL (0.2-1.0); BLOOD UREA NITROGEN 12 MG/DL (7-18); CARBON DIOXIDE LEVEL 28 MEQ/L (21-32); CHLORIDE LEVEL 109 MEQ/L (98-107); CHOLESTEROL LEVEL 186 MG/DL (<200); CREATININE FOR GFR 0.86 MG/DL (0.70-1.30); GLOMERULAR FILTRATION RATE > 60.0 (>56); GLUCOSE, FASTING 98 MG/DL (70-100); HDL CHOLESTEROL 40 MG/DL (>40); LDL CHOLESTEROL 98 MG/DL (<100); NON-HDL-C 146 MG/DL; POTASSIUM SERUM 4.2 MEQ/L (3.5-5.1); SODIUM LEVEL 142 MEQ/L (136-145); TRIGLYCERIDES LEVEL 241 MG/DL (<150)
== END ==
LOC: M LAB 10:14
PROVIDERS: ATTEND Physician Assistant
DX: E78.2 Mixed hyperlipidemia (principal); I48.0 Paroxysmal atrial fibrillation

== ENCOUNTER 2019-05-08 08:51 | Day surgery (SDC) | payer BC ==
[~2019-05-08] VITALS: Ht 185.4 cm; Wt 94.1 kg
[~2019-05-08 08:51] MED LIST changes: +NS 1,000 ML IV ONE
[2019-05-08] MEDS ORDERED: PROPOFOL 500 MG/50 ML VIAL As Ordered ONE (10:33)
[2019-05-08] MEDS ORDERED: LIDOCAINE 2% INJ 100 MG/5 ML SDV (FOR ANES.) As Ordered ONE (10:33)
[2019-05-08] MEDS ORDERED: fentaNYL 100 MCG/2 ML INJECTION (J3010) As Ordered ONE (10:33)
--- NOTE | 2019-05-08 11:25 | ROOR ---
Patient Name: Abebe Goodman Procedure Date: 05/08/2019 10:31 AM Date of : 1970 Age: 48 Room: [facility] Gender: Male Note Status: Finalized Procedure: Upper GI endoscopy Indications: Heartburn, Suspected gastro-esophageal reflux disease Providers: Benjamin Armenta MD Referring MD: Ashli Bullard MD Requesting Provider: Medicines: Monitored Anesthesia Care Complications: No immediate complications. Procedure: Pre-Anesthesia Assessment: - Prior to the procedure, a History and Physical was performed, and patient medications and allergies were reviewed. The patient is competent. The risks and benefits of the procedure and the sedation options and risks were discussed with the patient. All questions were answered and informed consent was obtained. Patient identification and proposed procedure were verified by the physician, the nurse and the anesthesiologist in the procedure room. Mental Status Examination: alert and oriented. Airway Examination: normal oropharyngeal airway and neck mobility. Respiratory Examination: clear to auscultation. CV Examination: normal. Prophylactic Antibiotics: The patient does not require prophylactic antibiotics. Prior Anticoagulants: The patient has taken no previous anticoagulant or antiplatelet agents. ASA Grade Assessment: II - A patient with mild systemic disease. After reviewing the risks and benefits, the patient was deemed in satisfactory condition to undergo the procedure. The anesthesia plan was to use monitored anesthesia care (MAC). Immediately prior to administration of medications, the patient was re-assessed for adequacy to receive sedatives. The heart rate, respiratory rate, oxygen saturations, blood pressure, adequacy of pulmonary ventilation, and response to care were monitored throughout the procedure. The physical status of the patient was re-assessed after the procedure. The Endoscope was introduced through the mouth, and advanced to the second part of duodenum. The upper GI endoscopy was accomplished without difficulty. The patient tolerated the procedure well. Findings: Two tongues of salmon-colored mucosa were present from 38 to 40 cm. No other visible abnormalities were present. The maximum longitudinal extent of these esophageal mucosal changes was 2 cm in length. Biopsies were taken with a cold forceps for histology. Verification of patient identification for the specimen was done by the physician and nurse using the patient's name, date and medical record number. Scattered moderate inflammation characterized by erythema and granularity was found in the gastric antrum. Biopsies were taken with a cold forceps for Helicobacter pylori testing. The duodenal bulb and second portion of the duodenum were normal. Impression: - [place]-colored mucosa suspicious for short-segment Palacio's esophagus. Biopsied. - Gastritis. Biopsied. - Normal duodenal bulb and second portion of the duodenum. Recommendation: - Patient has a contact number available for emergencies. The signs and symptoms of potential delayed complications were discussed with the patient. Return to normal activities tomorrow. Written discharge instructions were provided to the patient. - Resume previous diet. - Continue present medications. - Use Prilosec (omeprazole) 40 mg PO daily for 8 weeks. - Follow an antireflux regimen. - Await pathology results. - Telephone GI clinic for pathology results 1 - 2 weeks. Please call GI clinic @ [phone]. - Return to primary care physician. Benjamin Armenta MD Benjamin Armenta MD 05/08/2019 11:25:14 AM Electronically signed by Benjamin Armenta MD Number of Addenda: 0 Note Initiated On: 05/08/2019 10:31 AM Estimated Blood Loss: Estimated blood loss was minimal.
[2019-05-08 11:35] VITALS: BP 133/87
--- NOTE | 2019-05-08 12:05 | ROOR ---
Patient Name: Abebe Goodman Procedure Date: 05/08/2019 10:31 AM Date of : 1970 Age: 48 Room: [facility] Gender: Male Note Status: Finalized Procedure: Colonoscopy Indications: Abnormal CT of the GI tract, Follow-up of acute ischemic colitis Providers: Benjamin Armenta MD Referring MD: Ashli Bullard MD Requesting Provider: Medicines: Monitored Anesthesia Care Complications: No immediate complications. Procedure: Pre-Anesthesia Assessment: - Prior to the procedure, a History and Physical was performed, and patient medications and allergies were reviewed. The patient is competent. The risks and benefits of the procedure and the sedation options and risks were discussed with the patient. All questions were answered and informed consent was obtained. Patient identification and proposed procedure were verified by the physician, the nurse and the anesthesiologist in the procedure room. Mental Status Examination: alert and oriented. Airway Examination: normal oropharyngeal airway and neck mobility. Respiratory Examination: clear to auscultation. CV Examination: normal. Prophylactic Antibiotics: The patient does not require prophylactic antibiotics. Prior Anticoagulants: The patient has taken Xarelto (rivaroxaban), last dose was 2 days prior to procedure. ASA Grade Assessment: II - A patient with mild systemic disease. After reviewing the risks and benefits, the patient was deemed in satisfactory condition to undergo the procedure. The anesthesia plan was to use monitored anesthesia care (MAC). Immediately prior to administration of medications, the patient was re-assessed for adequacy to receive sedatives. The heart rate, respiratory rate, oxygen saturations, blood pressure, adequacy of pulmonary ventilation, and response to care were monitored throughout the procedure. The physical status of the patient was re-assessed after the procedure. The Colonoscope was introduced through the anus and advanced to the terminal ileum, with identification of the appendiceal orifice and IC valve. The colonoscopy was performed without difficulty. The patient tolerated the procedure well. The quality of the bowel preparation was good. The terminal ileum, ileocecal valve, appendiceal orifice, and rectum were photographed. Scope insertion time was 3 minutes. Scope withdrawal time was 8 minutes. The total duration of the procedure was 11 minutes. Findings: The perianal and digital rectal examinations were normal. The terminal ileum appeared normal. Patchy mild mucosal changes characterized by altered vascularity, erythema and granularity were found in the transverse colon. Biopsies were taken with a cold forceps for histology. Verification of patient identification for the specimen was done by the physician and nurse using the patient's name, date and medical record number. Estimated blood loss was minimal. Three sessile polyps were found in the recto-sigmoid colon and descending colon. The polyps were 5 to 8 mm in size. These polyps were removed with a cold snare. Resection and retrieval were complete. Non-bleeding external and internal hemorrhoids were found during anoscopy. The hemorrhoids were small. Retroflexion in the rectum was not performed due to anatomy. Impression: - The examined portion of the ileum was normal. - Patchy mild mucosal changes were found in the transverse colon secondary to ischemic colitis. Biopsied. - Three 5 to 8 mm polyps at the recto-sigmoid colon and in the descending colon, removed with a cold snare. Resected and retrieved. - Non-bleeding external and internal hemorrhoids. Recommendation: - Patient has a contact number available for emergencies. The signs and symptoms of potential delayed complications were discussed with the patient. Return to normal activities tomorrow. Written discharge instructions were provided to the patient. - High fiber diet. - Continue present medications. - Await pathology results. - Repeat colonoscopy in 3 - 5 years for surveillance based on pathology results. - Resume Xarelto (rivaroxaban) at prior dose tomorrow. - Telephone GI clinic for pathology results in 2 weeks. - Return to primary care physician. Benjamin Armenta MD Benjamin Armenta MD 05/08/2019 12:05:18 PM Electronically signed by Benjamin Armenta MD Number of Addenda: 0 Note Initiated On: 05/08/2019 10:31 AM Estimated Blood Loss: Estimated blood loss was minimal.
== END 2019-05-08 11:47 | disposition home or self-care (01) ==
LOC: M OPP 08:51
PROVIDERS: ATTEND Internal Medicine Gastroenterology
DX: D12.4 Benign neoplasm of descending colon (principal); K63.5 Polyp of colon; K64.8 Other hemorrhoids; K55.9 Vascular disorder of intestine, unspecified; K22.8 Other specified diseases of esophagus; K29.70 Gastritis, unspecified, without bleeding; K55.039 Acute (reversible) ischemia of large intestine, extent unspecified; R12 Heartburn; R93.3 Abnormal findings on diagnostic imaging of other parts of digestive tract
CPT/HCPCS: 43239; 45380; 45385; 88305; J3010

== ENCOUNTER → 2019-07-23 | Outpatient (CLI) | payer BC ==
[~2019-07-23] MED LIST changes: -NS 1,000 ML IV ONE; -ROSU20TA4 PO; +ROSU20TA5 PO
--- NOTE | 2019-07-23 13:34 | REP ---
ULTRASOUND OF THE ABDOMINAL AORTA: Real-time sonographic evaluation of the abdominal aorta performed. There is no sonographic evidence of abdominal aortic aneurysm. Maximum AP diameter of the proximal abdominal aorta is 2.8 cm, mid aspect 2.3 cm and distally 2.4 cm. Common iliac arteries are ectatic, right measuring 2.4 x 2.4 cm and left 1.5 x 1.6. IMPRESSION: No sonographic evidence of abdominal aortic aneurysm. However the common iliac arteries are ectatic, right measuring 2.4 cm and left 12.5 cm in maximum AP dimension. Electronically Signed by Pio Parker MD 07/24/2019 01:50 P
== END ==
LOC: M RAD 06:52
PROVIDERS: ATTEND Surgery Vascular Surgery
DX: I71.4 Abdominal aortic aneurysm, without rupture (principal)

== ENCOUNTER → 2019-07-26 | Outpatient (CLI) | payer BC ==
[2019-07-26 16:49] LABS: BASO % 0.7 % (0.0-1.0); EOS # 0.2 10^3/uL (0.0-0.5); EOS % 2.9 % (0.0-3.0); HEMATOCRIT 42.4 % (42.0-52.0); HEMOGLOBIN 14.3 g/dl (13.5-17.5); LYMPH # 1.8 10^3/uL (1.5-5.0); LYMPH % 32.5 % (24.0-44.0); MEAN CORPUSCULAR HEMOGLOBIN 30.7 pg (27.0-33.0); MEAN CORPUSCULAR HGB CONC 33.7 g/dl (32.0-36.5); MONO # 0.6 10^3/uL (0.0-0.8); MONO % 10.2 % (0.0-5.0); NEUTROPHILS # 2.9 10^3/uL (1.5-8.5); NEUTROPHILS % 53.5 % (36.0-66.0); PLATELET COUNT, AUTOMATED 193 10^3/uL (150-450); RED BLOOD COUNT 4.66 10^6/uL (4.30-6.10); WHITE BLOOD COUNT 5.5 10^3/uL (4.0-10.0)
[2019-07-26 16:56] LABS: ALBUMIN 4.2 GM/DL (3.2-5.2); ALT/SGPT 54 U/L (12-78); BILIRUBIN,TOTAL 0.6 MG/DL (0.2-1.0); BLOOD UREA NITROGEN 17 MG/DL (7-18); CALCIUM LEVEL 8.9 MG/DL (8.5-10.1); CARBON DIOXIDE LEVEL 27 MEQ/L (21-32); CHLORIDE LEVEL 107 MEQ/L (98-107); CREATININE FOR GFR 0.84 MG/DL (0.70-1.30); GLOMERULAR FILTRATION RATE > 60.0 (>56); GLUCOSE, FASTING 103 MG/DL (70-100); SODIUM LEVEL 141 MEQ/L (136-145); TOTAL PROTEIN 7.2 GM/DL (6.4-8.2)
[2019-07-29 00:06] LABS: Lyme Disease IgG/IgM Antibodie <0.91 ISR (0.00-0.90); Lyme Disease IgM Ab Quantitati <0.80 index (0.00-0.79)
== END ==
LOC: M WUC 14:55
PROVIDERS: ATTEND Physician Assistant
DX: R53.83 Other fatigue (principal)

== ENCOUNTER → 2019-10-12 | Outpatient (CLI) | payer BC ==
[~2019-10-12] MED LIST changes: -OMEP40CA2 PO; +OMEP40CA97 PO
[2019-10-12 08:15] LABS: BASO % 0.5 % (0.0-1.0); EOS # 0.3 10^3/uL (0.0-0.5); EOS % 5.4 % (0.0-3.0); HEMOGLOBIN 14.7 g/dl (13.5-17.5); LYMPH # 1.3 10^3/uL (1.5-5.0); LYMPH % 20.3 % (24.0-44.0); MEAN CORPUSCULAR HEMOGLOBIN 30.1 pg (27.0-33.0); MEAN CORPUSCULAR VOLUME 94.1 fl (80.0-96.0); MONO # 0.6 10^3/uL (0.0-0.8); MONO % 8.8 % (0.0-5.0); NEUTROPHILS # 4.1 10^3/uL (1.5-8.5); NEUTROPHILS % 64.7 % (36.0-66.0); PLATELET COUNT, AUTOMATED 213 10^3/uL (150-450); RED BLOOD COUNT 4.89 10^6/uL (4.30-6.10); WHITE BLOOD COUNT 6.3 10^3/uL (4.0-10.0)
== END ==
LOC: M LAB 07:48
PROVIDERS: ATTEND Physician Assistant
DX: R53.83 Other fatigue (principal)

== ENCOUNTER → 2019-11-15 | Outpatient (CLI) | payer BC ==
[2019-11-15 10:23] LABS: BASO % 0.5 % (0.0-1.0); EOS # 0.2 10^3/uL (0.0-0.5); EOS % 3.8 % (0.0-3.0); HEMOGLOBIN 14.2 g/dl (13.5-17.5); LYMPH # 1.4 10^3/uL (1.5-5.0); LYMPH % 25.4 % (24.0-44.0); MEAN CORPUSCULAR HEMOGLOBIN 30.5 pg (27.0-33.0); MEAN CORPUSCULAR VOLUME 92.5 fl (80.0-96.0); MONO # 0.6 10^3/uL (0.0-0.8); MONO % 10.5 % (0.0-5.0); NEUTROPHILS # 3.3 10^3/uL (1.5-8.5); NEUTROPHILS % 59.3 % (36.0-66.0); PLATELET COUNT, AUTOMATED 199 10^3/uL (150-450); RED BLOOD COUNT 4.65 10^6/uL (4.30-6.10); WHITE BLOOD COUNT 5.5 10^3/uL (4.0-10.0)
[2019-11-15 10:49] LABS: ALBUMIN 3.6 GM/DL (3.2-5.2); ALT/SGPT 64 U/L (12-78); AMYLASE 69 U/L (25-115); BILIRUBIN,TOTAL 0.6 MG/DL (0.2-1.0); BLOOD UREA NITROGEN 16 MG/DL (7-18); CALCIUM LEVEL 8.9 MG/DL (8.5-10.1); CARBON DIOXIDE LEVEL 27 MEQ/L (21-32); CHLORIDE LEVEL 109 MEQ/L (98-107); CREATININE FOR GFR 0.87 MG/DL (0.70-1.30); GLOMERULAR FILTRATION RATE > 60.0 (>56); GLUCOSE, FASTING 90 MG/DL (70-100); LIPASE 118 U/L (73-393); POTASSIUM SERUM 4.2 MEQ/L (3.5-5.1); SODIUM LEVEL 142 MEQ/L (136-145); TOTAL PROTEIN 6.9 GM/DL (6.4-8.2)
== END ==
LOC: M LAB 09:11
PROVIDERS: ATTEND Physician Assistant
DX: R10.9 Unspecified abdominal pain (principal)

== ENCOUNTER 2019-12-05 09:58 | Emergency (ER) | payer BC ==
[~2019-12-05] VITALS: Ht 185.4 cm; Wt 104.1 kg
[2019-12-05] MEDS ORDERED: ASPI81CH33 PO (10:05)
[2019-12-05] MEDS ORDERED: NS 1,000 ML IV ONE (10:15)
[2019-12-05 10:35] LABS: BASO % 0.6 % (0.0-1.0); EOS # 0.2 10^3/uL (0.0-0.5); EOS % 4.7 % (0.0-3.0); HEMOGLOBIN 14.6 g/dl (13.5-17.5); LYMPH # 1.4 10^3/uL (1.5-5.0); LYMPH % 28.1 % (24.0-44.0); MEAN CORPUSCULAR HGB CONC 31.7 g/dl (32.0-36.5); MEAN CORPUSCULAR VOLUME 94.7 fl (80.0-96.0); MONO # 0.5 10^3/uL (0.0-0.8); MONO % 9.8 % (0.0-5.0); NEUTROPHILS # 2.9 10^3/uL (1.5-8.5); NEUTROPHILS % 56.8 % (36.0-66.0); PLATELET COUNT, AUTOMATED 160 10^3/uL (150-450); RED BLOOD COUNT 4.86 10^6/uL (4.30-6.10); WHITE BLOOD COUNT 5.1 10^3/uL (4.0-10.0)
[2019-12-05 11:04] LABS: ALBUMIN 4.1 GM/DL (3.2-5.2); ALT/SGPT 43 U/L (12-78); AMYLASE 71 U/L (25-115); BILIRUBIN,DIRECT 0.2 MG/DL (0.0-0.2); BILIRUBIN,TOTAL 0.7 MG/DL (0.2-1.0); BLOOD UREA NITROGEN 16 MG/DL (7-18); CALCIUM LEVEL 8.9 MG/DL (8.5-10.1); CARBON DIOXIDE LEVEL 30 MEQ/L (21-32); CHLORIDE LEVEL 109 MEQ/L (98-107); CREATININE FOR GFR 0.93 MG/DL (0.70-1.30); GLOMERULAR FILTRATION RATE > 60.0 (>56); GLUCOSE, FASTING 91 MG/DL (70-100); LIPASE 107 U/L (73-393); POTASSIUM SERUM 4.5 MEQ/L (3.5-5.1); SODIUM LEVEL 144 MEQ/L (136-145)
--- NOTE | 2019-12-05 11:33 | REP ---
Abdominal right upper quadrant ultrasound for right upper quadrant pain and colic: Comparison is the abdomen/pelvis CT dated 02/21/2019. There is no cholelithiasis, gallbladder wall thickening or pericholecystic fluid. There is no intrahepatic or extrahepatic biliary duct dilatation. The common biliary duct measures 4.0 mm in diameter. The hepatic parenchyma is mildly echogenic compatible with hepato steatosis. There is focal hepatic hypo echogenicity adjacent to the gallbladder compatible with fat sparing. The visualized areas of the pancreatic head and body are unremarkable. The tail is obscured by bowel gas. The right kidney is normal size measuring 11.9 x 5.9 x 6.6 cm. There is no right renal hydronephrosis or calculus. There is no right renal solid or cystic mass. There is no right upper quadrant abdominal ascites. Impression: There are is no cholelithiasis. There is no biliary duct dilatation. Hepato steatosis. Otherwise, negative right upper quadrant abdominal ultrasound. Electronically Signed by Pio Malcolm MD 12/05/2019 11:25 A
[2019-12-05] MEDS ORDERED: ONDANSETRON 4MG/2ML VIAL (J2405) IV ONE (12:00)
[2019-12-05] MEDS ORDERED: MORPHINE 4 MG/ML 1ML VIAL/SYRINGE (J2270) IV ONE (12:00)
[2019-12-05] MEDS ORDERED: ISOVUE-370 76% 100ML VIAL (Q9967) As Ordered ONE (12:30)
--- NOTE | 2019-12-05 14:16 | REP ---
CT of the abdomen pelvis with IV contrast, without bowel contrast for right upper quadrant abdominal pain: Comparison is 02/21/2019. The visualized lung barragan are unremarkable. The hepatic parenchyma, gallbladder, pancreas and spleen are normal size and unremarkable. The adrenals are unremarkable. The kidneys are unremarkable. The abdominal aorta and periaortic area is unremarkable. There is no bowel distension or obstruction. There is no small bowel or colon wall thickening. The mesentery is unremarkable. There is no ascites. Pelvis: The the patient reportedly has an appendectomy. The bladder is unremarkable. There is no adenopathy or ascites. The pelvic bowel loops are unremarkable. There are surgical clips in the right inguinal area. Impression: No acute findings. The the patient reportedly has an appendectomy. There are surgical clips in the right inguinal area. Otherwise, negative CT of the abdomen/pelvis. Electronically Signed by Pio Malcolm MD 12/05/2019 02:07 P
[2019-12-05] MEDS ORDERED: DICY10CA13 PO (15:31)
[2019-12-05] MEDS ORDERED: ONDA4TAB6 PO (15:31)
[2019-12-05 15:40] VITALS: BP 134/82
--- NOTE | 2019-12-05 20:03 | ECGEPIP ---
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 Order Number: [id number] Reading MD: Gustavo Drew Measurements Intervals [place] Rate: 68 P: 52 [place]: 156 QRS: 7 QRSD: 102 T: 47 QT: 431 QTc: 459 Interpretive Statements SINUS RHYTHM INFERIOR MYOCARDIAL INFARCTION, OF INDETERMINATE AGE SIMILAR TO 02/25/19 Electronically Signed on 12-05-2019 20:03:06 EST by Gustavo Drew
== END 2019-12-05 15:41 | disposition home or self-care (01) ==
LOC: M ED 09:58
DX: R10.11 Right upper quadrant pain (principal); G89.29 Other chronic pain; K76.0 Fatty (change of) liver, not elsewhere classified; Z86.19 Personal history of other infectious and parasitic diseases; E78.00 Pure hypercholesterolemia, unspecified; G47.33 Obstructive sleep apnea (adult) (pediatric); N40.0 Benign prostatic hyperplasia without lower urinary tract symptoms; M54.9 Dorsalgia, unspecified; Z79.82 Long term (current) use of aspirin; Z79.899 Other long term (current) drug therapy
CPT/HCPCS: 74177; 76705; 80048; 80076; 82150; 83605; 83690; 85025; 93005; 96361; 96374; 96375; 99284; J2270; J2405; Q9967

== ENCOUNTER 2019-12-20 13:39 | Emergency (ER) | payer BC ==
[~2019-12-20] VITALS: Ht 185.4 cm; Wt 106.5 kg
[~2019-12-20 13:39] MED LIST changes: +ASPI81CH33 PO; +DICY10CA13 PO; +ONDA4TAB6 PO
[2019-12-20] MEDS ORDERED: ESCI20TA (13:46)
[2019-12-20] MEDS ORDERED: ALBU8.5H (13:46)
[2019-12-20] MEDS ORDERED: LIDOCAINE 5% (LIDODERM) PATCH TD ONE (15:45)
[2019-12-20] MEDS ORDERED: KETOROLAC 60 MG/2 ML VIAL (J1885) IM ONE (15:45)
[2019-12-20] MEDS ORDERED: ACETAMINOPHEN 325 MG TAB PO ONE (15:45)
[2019-12-20 16:07] LABS: APPEARANCE, URINE HAZY (CLEAR); BACTERIA, URINE AUTO NEGATIVE (NEGATIVE); BILIRUBIN, URINE AUTO NEGATIVE (NEGATIVE); BLOOD, URINE BLOOD NEGATIVE (NEGATIVE); COLOR, URINE YELLOW (YELLOW); GLUCOSE, URINE (UA) AUTO NEGATIVE (NEGATIVE); KETONE, URINE AUTO TRACE mg/dL (NEGATIVE); LEUKOCYTE ESTERASE, URINE AUTO NEGATIVE (NEGATIVE); MUCUS, URINE SMALL (NEGATIVE); NITRITE, URINE AUTO NEGATIVE (NEGATIVE); PROTEIN, URINE AUTO NEGATIVE (NEGATIVE); RBC, URINE AUTO 3 /HPF (0-3); SPECIFIC GRAVITY URINE AUTO 1.027 (1.002-1.035); SQUAMOUS EPITHELIAL CELL UR AU 0 /HPF (0-6); WBC, URINE AUTO 1 /HPF (0-3)
[2019-12-20 17:42] VITALS: BP 142/90
[2019-12-20] MEDS ORDERED: KETO10TAB PO (17:53)
[2019-12-20] MEDS ORDERED: **NOTE PATIENT COMMENT** MISC XX SCH (21:00)
== END 2019-12-20 18:13 | disposition home or self-care (01) ==
LOC: M ED 13:39
DX: M54.41 Lumbago with sciatica, right side (principal); M54.42 Lumbago with sciatica, left side; Z87.438 Personal history of other diseases of male genital organs; Z79.82 Long term (current) use of aspirin; Z79.899 Other long term (current) drug therapy
CPT/HCPCS: 81001; 96372; 99283; J1885

== ENCOUNTER 2019-12-28 23:07 | Emergency (ER) | payer BC ==
[~2019-12-28] VITALS: Ht 185.4 cm; Wt 98.6 kg
[~2019-12-28 23:07] MED LIST changes: +ALBU8.5H; +ESCI20TA; +KETO10TAB PO
[2019-12-28 23:54] LABS: BASO % 0.4 % (0.0-1.0); EOS # 0.1 10^3/uL (0.0-0.5); EOS % 2.5 % (0.0-3.0); HEMATOCRIT 40.8 % (42.0-52.0); HEMOGLOBIN 13.8 g/dl (13.5-17.5); LYMPH # 1.4 10^3/uL (1.5-5.0); LYMPH % 25.6 % (24.0-44.0); MEAN CORPUSCULAR HEMOGLOBIN 30.4 pg (27.0-33.0); MEAN CORPUSCULAR HGB CONC 33.8 g/dl (32.0-36.5); MEAN CORPUSCULAR VOLUME 89.9 fl (80.0-96.0); MONO # 0.6 10^3/uL (0.0-0.8); NEUTROPHILS # 3.3 10^3/uL (1.5-8.5); NEUTROPHILS % 60.1 % (36.0-66.0); PLATELET COUNT, AUTOMATED 162 10^3/uL (150-450); RED BLOOD COUNT 4.54 10^6/uL (4.30-6.10); WHITE BLOOD COUNT 5.5 10^3/uL (4.0-10.0)
[2019-12-29 00:19] LABS: ALBUMIN 3.7 GM/DL (3.2-5.2); ALT/SGPT 58 U/L (12-78); BILIRUBIN,DIRECT 0.2 MG/DL (0.0-0.2); BILIRUBIN,TOTAL 0.5 MG/DL (0.2-1.0); CK-MB VALUE MASS < 1.0 NG/ML (<3.6); CPK CREATINE PHOSPHOKINASE 142 U/L (39-308); LIPASE 126 U/L (73-393); TOTAL PROTEIN 6.8 GM/DL (6.4-8.2); TROPONIN I < 0.02 NG/ML (< 0.10)
[2019-12-29] MEDS ORDERED: ISOVUE-370 76% 100ML VIAL (Q9967) As Ordered ONE (00:58)
[2019-12-29] MEDS ORDERED: ONDANSETRON 4MG/2ML VIAL (J2405) IV ONE (01:00)
[2019-12-29] MEDS: MORPHINE 4 MG/ML 1ML VIAL/SYRINGE (J2270) IV PRN ×2 (01:28→02:19)
--- NOTE | 2019-12-29 01:39 | REPVR ---
PROCEDURE INFORMATION: Exam: CT Abdomen And Pelvis With Contrast Exam date and time: 12/29/2019 12:53 AM Age: 49 years old Clinical indication: Abdominal pain; Localized; Right upper quadrant (ruq); Additional info: Ruq abd pain TECHNIQUE: Imaging protocol: Computed tomography of the abdomen and pelvis with intravenous contrast. Radiation optimization: All CT scans at this facility use at least one of these dose optimization techniques: automated exposure control; mA and/or kV adjustment per patient size (includes targeted exams where dose is matched to clinical indication); or iterative reconstruction. Contrast material: ISO; Contrast volume: 100 ml; Contrast route: AC; COMPARISON: CT ABD/PEL W/IV CONTRAST ONLY 12/05/2019 12:40 PM FINDINGS: Pleural space: Small bilateral pleural effusions with adjacent compressive atelectasis. Liver: Steatosis. Gallbladder and bile ducts: Normal. No calcified stones. No ductal dilation. Pancreas: Normal. No ductal dilation. Spleen: Normal. No splenomegaly. Adrenals: Normal. No mass. Kidneys and ureters: Normal. No hydronephrosis. Stomach and bowel: Diverticulosis of the colon. No evidence of acute diverticulitis. Appendix: Status post appendectomy. Intraperitoneal space: Unremarkable. No free air. No significant fluid collection. 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 Dissection terminates at the bifurcation of the common femoral artery. Lymph nodes: Unremarkable. No enlarged lymph nodes. Bladder: Unremarkable as visualized. Reproductive: Mildly enlarged prostate. Bones/joints: Degenerative disease and facet hypertrophy in the lower lumbar spine with significant stenosis of the spinal canal at L4-L5. Soft tissues: Fat containing umbilical hernia. IMPRESSION: 1. 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 Dissection terminates at the bifurcation of the common femoral artery. 2. Small bilateral pleural effusions with adjacent compressive atelectasis. 3. Steatosis. Electronically signed by: Binu Carlin On 12/29/2019 01:39:20 AM
--- NOTE | 2019-12-29 01:40 | REPVR ---
PROCEDURE INFORMATION: Exam: US Abdomen Limited, Right Upper Quadrant Exam date and time: 12/29/2019 1:21 AM Age: 49 years old Clinical indication: Abdominal pain; Epigastric; Additional info: Ruq abd pain TECHNIQUE: Imaging protocol: Real-time ultrasound of the abdomen with image documentation. Examination was focused on the right upper quadrant. COMPARISON: GALLBLADDER US 12/05/2019 10:53 AM FINDINGS: Liver: Coarse echogenic attenuating liver parenchyma. Gallbladder: Normal. No gallstones. There is no gallbladder wall thickening. Common bile duct: Normal. No stones. No dilation. Pancreas: Visualized pancreas is unremarkable. Right kidney: Normal. No mass. No hydronephrosis. IMPRESSION: Steatosis. Electronically signed by: Binu Carlin On 12/29/2019 01:40:08 AM
[2019-12-29] MEDS ORDERED: SIMV10TA21 PO (02:17)
[2019-12-29] MEDS ORDERED: LEXA5TAB13 PO (02:17)
[2019-12-29] MEDS ORDERED: LEVS0.124 SL (02:48)
[2019-12-29 03:09] VITALS: BP 132/86
--- NOTE | 2019-12-29 05:48 | ECGEPIP ---
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
== END 2019-12-29 03:16 | disposition home or self-care (01) ==
LOC: M ED 23:07
DX: K80.50 Calculus of bile duct without cholangitis or cholecystitis without obstruction (principal); R11.2 Nausea with vomiting, unspecified; R63.8 Other symptoms and signs concerning food and fluid intake; R07.9 Chest pain, unspecified; J90 Pleural effusion, not elsewhere classified; K76.0 Fatty (change of) liver, not elsewhere classified; Z79.82 Long term (current) use of aspirin; Z79.899 Other long term (current) drug therapy
CPT/HCPCS: 74177; 76705; 80047; 80076; 82550; 82553; 83690; 84484; 85025; 93005; 93041; 96374; 96375; 99285; J2270; J2405; Q9967

== ENCOUNTER → 2020-01-29 | Outpatient (CLI) | payer BC ==
[~2020-01-29] MED LIST changes: +LEVS0.124 SL; +LEXA5TAB13 PO; +LIQUID POLIBAR PLUS 105% w/v 1900ML BTL As Ordered ONE; +SIMV10TA21 PO
--- NOTE | 2020-01-30 09:15 | REP ---
BARIUM ENEMA AIR CONTRAST The procedure was performed under the direct supervision of Dr. Parker. The images were reviewed with Dr. Parker. Liquid barium and air were instilled into the colon and retrograde flow of the barium and air mixture. The colon is normal in position and contour. There are a few scattered diverticula. Haustration is unremarkable throughout. There are no polypoid masses or annular constricting lesions identified. There is free flow of contrast to the cecum with reflux into the terminal ileum. Impression: There are a few scattered diverticula. Otherwise, unremarkable double contrast barium enema. 0.9 minutes of fluoroscopy time was utilized for this procedure. Electronically Signed by LANDON Ortiz 01/29/2020 05:01 P Electronically Signed by Pio Parker MD 01/30/2020 09:05 A
== END ==
LOC: M RAD 08:23
PROVIDERS: ATTEND Internal Medicine Gastroenterology
DX: K59.00 Constipation, unspecified (principal); K57.90 Diverticulosis of intestine, part unspecified, without perforation or abscess without bleeding

== ENCOUNTER → 2020-07-24 | Outpatient (CLI) | payer BC ==
[~2020-07-24] MED LIST changes: +CYCL-707 PO; -CYCL10TA PO; -LIQUID POLIBAR PLUS 105% w/v 1900ML BTL As Ordered ONE
[2020-07-24 14:25] LABS: BLOOD UREA NITROGEN 12 MG/DL (7-18); CREATININE FOR GFR 0.96 MG/DL (0.70-1.30); GLOMERULAR FILTRATION RATE > 60.0 (>56)
== END ==
LOC: M PLALAB 12:12
PROVIDERS: ATTEND Physician Assistant Surgical
DX: M19.011 Primary osteoarthritis, right shoulder (principal)

== ENCOUNTER → 2020-09-23 | Outpatient (CLI) | payer SELFPAY | LOC: M LABSMTC 09:37 | PROVIDERS: ATTEND Pediatrics | DX: Z20.828 Contact with and (suspected) exposure to other viral communicable diseases (principal) ==

== ENCOUNTER 2021-03-20 09:40 | Emergency (ER) | payer BC ==
[~2021-03-20] VITALS: Ht 182.9 cm; Wt 109.1 kg
[~2021-03-20 09:40] MED LIST changes: +ESCI10TA16; +ESCI10TA16 PO; -ESCI10TA2; -ESCI10TA2 PO; -ESCI20TA; +ESCI20TA16
--- NOTE | 2021-03-20 10:04 | REP ---
INDICATION: abnormal gait. COMPARISON: Comparison CT study is from April 22, 2019.. TECHNIQUE: Helical scanning is acquired. 5 mm axial images were reformatted. Coronal MPR images were generated. FINDINGS: Bone window settings demonstrate an intact bony calvarium. There is no evidence of skull fracture or incidental bony calvarial lesion. The visualized paranasal sinuses appear clear. No intraorbital abnormality is seen. On soft tissue window setting images; the lateral, third, and fourth ventricles are normal in size and position. Parker-white differentiation pattern is normal above and below the tentorium. There are is no evidence of intracranial hemorrhage. No mass, edema, infarction, or midline shift is seen. No extra-axial fluid collection is appreciated. IMPRESSION: Negative noncontrast head CT. <Electronically signed by Reece Peterson > 03/20/21 [id number]
[2021-03-20] MEDS ORDERED: diphenhydrAMINE 50MG/ML VIAL (J1200) IV STA (10:07)
[2021-03-20] MEDS ORDERED: METOCLOPRAMIDE INJ 10MG/2ML VIAL (J2765 PER 1) IV ONE (10:10)
[2021-03-20 10:25] LABS: BASO % 0.4 % (0.0-1.0); EOS # 0.2 10^3/uL (0.0-0.5); HEMATOCRIT 43.3 % (42.0-52.0); HEMOGLOBIN 14.2 g/dl (13.5-17.5); LYMPH # 1.3 10^3/uL (1.5-5.0); LYMPH % 22.5 % (24.0-44.0); MEAN CORPUSCULAR HEMOGLOBIN 30.3 pg (27.0-33.0); MEAN CORPUSCULAR HGB CONC 32.8 g/dl (32.0-36.5); MEAN CORPUSCULAR VOLUME 92.5 fl (80.0-96.0); MONO # 0.6 10^3/uL (0.0-0.8); NEUTROPHILS # 3.4 10^3/uL (1.5-8.5); NEUTROPHILS % 61.9 % (36.0-66.0); PLATELET COUNT, AUTOMATED 193 10^3/uL (150-450); RED BLOOD COUNT 4.68 10^6/uL (4.30-6.10); WHITE BLOOD COUNT 5.6 10^3/uL (4.0-10.0)
--- NOTE | 2021-03-20 10:30 | REP ---
INDICATION: CVA COMPARISON: 06/05/2020 TECHNIQUE: Portable AP view of the chest FINDINGS: The mediastinum and cardiac silhouette are stable and within normal limits for portable technique. The lung barragan are clear without acute consolidation, effusion, or pneumothorax. Skeletal structures are intact. IMPRESSION: No acute cardiopulmonary process appreciated. <Electronically signed by Kumar Osorio > 03/20/21 1023
[2021-03-20 10:50] LABS: CK-MB VALUE MASS 1.7 NG/ML (<3.6); CPK CREATINE PHOSPHOKINASE 153 U/L (39-308); MB/CK RELATIVE INDEX 1.11 (< OR =4); TROPONIN I < 0.02 NG/ML (< 0.10)
[2021-03-20] MEDS ORDERED: NS 500 ML IV ONE (12:20)
--- NOTE | 2021-03-20 12:28 | REP ---
INDICATION: paresthesia/ataxia. COMPARISON: None. TECHNIQUE: Axial and sagittal imaging planes are utilized for T1 and T2-weighted scans. Sequences include spin-echo, fast spin echo, FLAIR, and diffusion weighted sequences. FINDINGS: No bony calvarial lesion is seen. Craniocervical junction and upper cervical cord are normal in appearance. There is mild mucosal thickening in the ethmoid sinuses bilaterally. There is no other MR evidence of significant paranasal sinus disease. No intraorbital abnormality is seen. The lateral, third, and fourth ventricles are normal in size and position. Parker-white differentiation pattern is intact above and below the tentorium. There is no evidence of intracranial hemorrhage. No mass, infarction, extra-axial fluid collection or midline shift is seen. No abnormal white matter lesion is seen. IMPRESSION: Mucosal thickening in the ethmoid sinuses bilaterally. Otherwise negative MRI study of the brain.. <Electronically signed by Reece Peterson > 03/20/21 [id number]
--- NOTE | 2021-03-20 12:30 | REP ---
INDICATION: paresthesia/ataxia. COMPARISON: None. TECHNIQUE: 3-D [id number] MR angiography of the brain is acquired in the usual fashion and maximal intensity projection images were generated in rotational format about the vertical and horizontal axes. In addition, source axial T1-weighted images are viewed in cine mode. FINDINGS: The distal vertebral arteries are patent and co-dominant. Basilar artery is a little tortuous but widely patent. The posterior cerebral and superior cerebellar vessels are normal and symmetric. The right posterior cerebral takes a persistent origin which is a normal variant. The distal internal carotid arteries are unremarkable. Anterior and middle cerebral arteries appear intact. There is no visible gutierrez aneurysm or arteriovenous malformation. IMPRESSION: Unremarkable MR angiography the brain. <Electronically signed by Reece Peterson > 03/20/21 [id number]
[2021-03-20 16:20] LABS: CK-MB VALUE MASS < 1.0 NG/ML (<3.6); CPK CREATINE PHOSPHOKINASE 127 U/L (39-308); MB/CK RELATIVE INDEX 0.79 (< OR =4); TROPONIN I < 0.02 NG/ML (< 0.10)
[2021-03-20 16:35] VITALS: BP 127/79
--- NOTE | 2021-03-20 18:45 | ECGEPIP ---
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
--- NOTE | 2021-03-20 19:11 | ECGEPIP ---
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
--- NOTE | 2021-03-22 08:38 | ED PDOC ---
Post-Departure Follow-Up radiology report faxed to Monalisa Castellon MD March 22, 2021 08:38
== END 2021-03-20 16:38 | disposition home or self-care (01) ==
LOC: EDBD 09:40 → M ED 09:40
DX: R51.9 Headache, unspecified (principal); I48.91 Unspecified atrial fibrillation; R94.31 Abnormal electrocardiogram [ECG] [EKG]; E78.9 Disorder of lipoprotein metabolism, unspecified; N40.1 Benign prostatic hyperplasia with lower urinary tract symptoms; I25.2 Old myocardial infarction; Z79.82 Long term (current) use of aspirin; Z79.899 Other long term (current) drug therapy; Z85.828 Personal history of other malignant neoplasm of skin; Z83.3 Family history of diabetes mellitus; Z82.49 Family history of ischemic heart disease and other diseases of the circulatory system; Z82.3 Family history of stroke; Z83.6 Family history of other diseases of the respiratory system
CPT/HCPCS: 70450; 70544; 70551; 71045; 80047; 82550; 82553; 84484; 85025; 85730; 93005; 93041; 94760; 96361; 96374; 96375; 99285; J1200; J2765

== ENCOUNTER → 2021-04-19 | Outpatient (CLI) | payer BC ==
[2021-04-19 09:32] LABS: HEMATOCRIT 43.6 % (42.0-52.0); HEMOGLOBIN 14.4 g/dl (13.5-17.5); MEAN CORPUSCULAR HEMOGLOBIN 30.4 pg (27.0-33.0); PLATELET COUNT, AUTOMATED 180 10^3/uL (150-450); RED BLOOD COUNT 4.74 10^6/uL (4.30-6.10); WHITE BLOOD COUNT 4.7 10^3/uL (4.0-10.0)
[2021-04-19 10:04] LABS: ALBUMIN 3.9 GM/DL (3.2-5.2); ALT/SGPT 57 U/L (12-78); BILIRUBIN,TOTAL 0.5 MG/DL (0.2-1.0); BLOOD UREA NITROGEN 20 MG/DL (7-18); CALCIUM LEVEL 8.8 MG/DL (8.5-10.1); CARBON DIOXIDE LEVEL 27 MEQ/L (21-32); CHLORIDE LEVEL 110 MEQ/L (98-107); CHOLESTEROL LEVEL 166 MG/DL (<200); CHOLESTEROL RISK RATIO 4.882 (<5); CREATININE FOR GFR 0.88 MG/DL (0.70-1.30); GLOMERULAR FILTRATION RATE > 60.0 (>56); GLUCOSE, FASTING 112 MG/DL (70-100); HDL CHOLESTEROL 34 MG/DL (>40); LDL CHOLESTEROL 88 MG/DL (<100); MAGNESIUM LEVEL 2.1 MG/DL (1.8-2.4); NON-HDL-C 132 MG/DL; POTASSIUM SERUM 4.4 MEQ/L (3.5-5.1); SODIUM LEVEL 142 MEQ/L (136-145); TOTAL PROTEIN 6.9 GM/DL (6.4-8.2); TRIGLYCERIDES LEVEL 218 MG/DL (<150)
== END ==
LOC: M LAB 09:02
PROVIDERS: ATTEND Physician Assistant
DX: I48.0 Paroxysmal atrial fibrillation (principal); E78.2 Mixed hyperlipidemia

== ENCOUNTER 2021-05-09 15:33 | Observation (INO) | payer BC ==
[~2021-05-09] VITALS: Ht 185.4 cm; Wt 108.2 kg
[~2021-05-09 15:33] MED LIST changes: -ALBU8.5H; +ALBU8.5H INH; +OMEP40CA4 PO; -OMEP40CA97 PO
[2021-05-09] MEDS ORDERED: NAPROXEN 250 MG TAB PO ONE (16:25)
[2021-05-09] MEDS ORDERED: NORCO, ANEXSIA 5/325MG TABLET (HYDROcodone/ACETAMINOPHEN) PO ONE (16:25)
[2021-05-09] MEDS ORDERED: diazePAM 5MG TABLET PO ONE (16:25)
--- NOTE | 2021-05-09 16:58 | REP ---
INDICATION: pelvic pain, possibly radicular. COMPARISON: CT abdomen and pelvis dated 10/08/2018 TECHNIQUE: Axial noncontrast images through the pelvis with coronal and sagittal reformations FINDINGS: The osseous structures relatively normal/age-appropriate in stable. Subtle sclerosis spurring the sacroiliac joints (left greater than right) suggests very mild sacroiliitis. Stable 2.5 cm somewhat heterogeneous by well-demarcated lesion right iliac bone likely represents benign enchondroma. No evidence for acute or healed injury. Prostatomegaly with mass effect on the base of the bladder noted. Sigmoid diverticula are identified without acute diverticulitis. No ascites. 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 IMPRESSION: 1. Chronic nonacute findings as described above. <Electronically signed by Kumar Osorio > 05/09/21 [id number]
--- NOTE | 2021-05-09 17:02 | REP ---
INDICATION: pelvic pain, possibly radicular, felt a pop in left hip,. COMPARISON: CT abdomen and pelvis images dated 12/29/2019 TECHNIQUE: Axial noncontrast images of the lumbosacral spine from mid T12 through mid sacrum with coronal and sagittal reformations. This CT examination was performed using the following dose reduction techniques: Automated exposure control, adjustment of mA and/or kv according to the patient's size, and use of iterative reconstruction technique. FINDINGS: Alignment and lordosis maintained. Vertebral bodies are intact and there is no evidence for acute fracture/compression injury or subluxation. Relatively stable advanced degenerative changes at L4-5 includes endplate sclerosis, underlying disc space narrowing, anterior/posterior osteophytosis, posterior disc bulge, facet hypertrophy and associated moderate canal stenosis. Remainder of the examination is relatively age-appropriate. The paravertebral soft tissues are normal. IMPRESSION: 1. Focal advanced degenerative spondylosis at L4-5 similar to prior examination with chronic posterior osteophyte, posterior disc bulge, and associated canal stenosis. 2. Remainder of the examination is relatively age-appropriate and within normal limits. <Electronically signed by Kumar Osorio > 05/09/21 [id number]
[2021-05-09] MEDS ORDERED: MORPHINE 4 MG/ML 1ML VIAL/SYRINGE (J2270) IV ONE (18:30)
[2021-05-09] MEDS ORDERED: ASPI81TA26 PO (18:50)
[2021-05-09] MEDS ORDERED: LEXA1TAB2 PO (18:50)
--- NOTE | 2021-05-09 19:22 | REP ---
INDICATION: severe pain COMPARISON: None. TECHNIQUE: Frontal view of the pelvis with neutral and frog lateral views of the left hip. FINDINGS: Osseous structures and joint spaces are intact and normal. Hip joints appear symmetric on frontal pelvic radiograph. No acute fracture dislocation. No evidence for healed injury. No significant degenerative or congenital abnormalities are appreciated. Surrounding soft tissues are unremarkable. IMPRESSION: Normal age-appropriate pelvis and left hip series. <Electronically signed by Kumar Osorio > 05/09/21 [id number]
--- NOTE | 2021-05-09 19:23 | REP ---
INDICATION: severe pain COMPARISON: None. TECHNIQUE: AP and frog-lateral of the to distal femur with proximal images in the left hip series FINDINGS: The osseous structures and joint spaces are intact and normal. There is no evidence for acute fracture or dislocation. Surrounding soft tissues are unremarkable. No subcutaneous emphysema or radiodense foreign body. IMPRESSION: Normal age-appropriate left femur radiographs. No acute fracture or dislocation. <Electronically signed by Kumar Osorio > 05/09/21 [id number]
[2021-05-09 20:46] LABS: RSV AMPLIFICATION NEGATIVE (NEGATIVE)
[2021-05-09] MEDS ORDERED: ROSUVASTATIN 10 MG TAB (CRESTOR) PO SCH (21:00)
[2021-05-09] MEDS ORDERED: ASPIRIN 81MG ENTERIC TABLET PO SCH (21:00)
[2021-05-09] MEDS ORDERED: OMEPRAZOLE 20 MG CAP PO SCH (21:00)
[2021-05-09] MEDS ORDERED: TAMSULOSIN 0.4 MG CAP PO SCH (21:00)
[2021-05-09 21:33] LABS: BASO % 0.2 % (0.0-1.0); EOS # 0.2 10^3/uL (0.0-0.5); EOS % 1.9 % (0.0-3.0); HEMATOCRIT 41.9 % (42.0-52.0); HEMOGLOBIN 13.7 g/dl (13.5-17.5); LYMPH % 24.3 % (24.0-44.0); MEAN CORPUSCULAR HEMOGLOBIN 30.6 pg (27.0-33.0); MEAN CORPUSCULAR HGB CONC 32.7 g/dl (32.0-36.5); MEAN CORPUSCULAR VOLUME 93.7 fl (80.0-96.0); MONO # 0.7 10^3/uL (0.0-0.8); MONO % 8.5 % (2.0-8.0); NEUTROPHILS # 5.2 10^3/uL (1.5-8.5); NEUTROPHILS % 64.7 % (36.0-66.0); PLATELET COUNT, AUTOMATED 185 10^3/uL (150-450); RED BLOOD COUNT 4.47 10^6/uL (4.30-6.10); WHITE BLOOD COUNT 8.1 10^3/uL (4.0-10.0)
[2021-05-09 21:51] LABS: ERYTHROCYTE SEDIMENTATION RATE 4 mm/hr (0-20)
[2021-05-09 22:05] LABS: ALBUMIN 3.9 GM/DL (3.2-5.2); ALT/SGPT 54 U/L (12-78); BILIRUBIN,TOTAL 0.4 MG/DL (0.2-1.0); BLOOD UREA NITROGEN 18 MG/DL (7-18); CALCIUM LEVEL 8.6 MG/DL (8.5-10.1); CARBON DIOXIDE LEVEL 30 MEQ/L (21-32); CHLORIDE LEVEL 108 MEQ/L (98-107); CREATININE FOR GFR 0.89 MG/DL (0.70-1.30); GLOMERULAR FILTRATION RATE > 60.0 (>56); GLUCOSE, FASTING 93 MG/DL (70-100); MAGNESIUM LEVEL 2.1 MG/DL (1.8-2.4); POTASSIUM SERUM 4.3 MEQ/L (3.5-5.1); SODIUM LEVEL 140 MEQ/L (136-145); TOTAL PROTEIN 6.6 GM/DL (6.4-8.2)
[2021-05-09] MEDS ORDERED: PERCOCET 5MG/325MG TAB PO ONE (22:25)
--- NOTE | 2021-05-10 00:19 | REPVR ---
PROCEDURE INFORMATION: Exam: MR Lumbar Spine Without Contrast Exam date and time: 05/09/2021 11:46 PM Age: 50 years old Clinical indication: Lumbago with sciatica and weakness and other: Sudden injury, inability to ambulate, R/O compression; Left TECHNIQUE: Imaging protocol: Multiplanar magnetic resonance images of the lumbar spine without intravenous contrast. COMPARISON: CT Spine, lumbar w/o contrast 05/09/2021 4:27 PM FINDINGS: Mild retrolisthesis of L3 on L4 and L4 on L5. Vertebral body heights are preserved. Disc desiccation greatest at L3-L4 and L4-L5 with moderate narrowing at L4-L5. There is degenerative endplate signal at L4-L5. Negative for discitis/osteomyelitis. Conus medullaris terminates at L1. No epidural fluid collection. Right common iliac artery aneurysm is stable from recent CT. L1-L2: Mild facet joint arthropathy without central or foraminal stenosis. L2-L3: Mild disc bulge and mild bilateral facet joint arthropathy. No central or foraminal stenosis. L3-L4: Disc bulge eccentric towards the left side. There is mild bilateral facet joint arthropathy and small left-sided facet joint effusion. No significant central canal stenosis. Mild left foraminal stenosis. L4-L5: Ywju-pf-cyrsqwzj disc osteophyte complex with bilateral facet joint arthropathy. There is nkcf-mk-zazryqfd central canal stenosis and mrvw-ss-qxxhxjrp bilateral foraminal stenosis. L5-S1: Bilateral facet joint arthropathy. No significant central or foraminal stenosis. IMPRESSION: 1. No acute abnormality involving the lumbar spine. 2. Degenerative findings as above greatest at L4-L5 where there is xleq-dl-zwswbpxr central canal stenosis. Electronically signed by: Abhishek Li On 05/10/2021 00:18:29 AM
[2021-05-10] MEDS ORDERED: MORPHINE 4 MG/ML 1ML VIAL/SYRINGE (J2270) IV PRN (00:25)
[2021-05-10] MEDS ORDERED: ALBUTEROL 90 MCG/ACT 8GM HFA INHALER INH PRN (00:25)
[2021-05-10] MEDS ORDERED: ACETAMINOPHEN TAB 650MG DOSE (2X325MG) PO PRN (00:25)
[2021-05-10] MEDS ORDERED: KETOROLAC 30 MG/ML 1ML VIAL IV PRN (00:25)
[2021-05-10] MEDS ORDERED: MOM 30ML SUSPENSION UDC PO PRN (00:25)
[2021-05-10] MEDS ORDERED: MAALOX 30 ML SUSP *UDC PO PRN (00:25)
--- NOTE | 2021-05-10 00:53 | HPEPDOC ---
[facility] Medical History & Physical Date of Admission May 10, 2021 Date of Service: May 10, 2021 Attending Physician: YANCY CHRISTIANSON MD History and Physical CHIEF COMPLAINT: [50 y/o c/o severe back/hip pain x1 day] HISTORY OF PRESENT ILLNESS: [This is a 50 y/o male with a pmh of a-fib, raffaele, gerd, ischemic bowel, bph, chronic lumbar and cervical radiculopathy who presents to our ED today after an injury caused him to fall and be unable to ambulate. Patient states that he was at a today, and when he bent over to pay his respects to the casket, he felt a loud pop in his left hip and i mmediately fell to the ground. Patient states that he experienced severe pain at this time and has been unable to ambulate since d/t the pain. Patient states that he did not strike his head when he fell. Patient states that he had no issue walking before this. Patient at this time denies new onset incontinence, saddle anesthesias, leg paresthesias, inability to feel temperature in the lower extremities, pallor, paralysis, fever, chills, cough, sob.] PAST MEDICAL HISTORY: 1. [See HPI PAST SURGICAL HISTORY: 1. [Appendectomy]. 2. [Colonoscopy]. 3. [Right inguinal hernia repair 4. Cystoscopy 5. B/l rotator cuff repairs]. SOCIAL HISTORY: Tobacco use:[Denies] ETOH: [Denies] Illicit drug use: [Denies] FAMILY HISTORY: Reviewed - none pertinent ALLERGIES: Please see below. REVIEW OF SYSTEMS: CONSTITUTIONAL: [See HPI]. HEENT: [Denies uri sx]. CARDIOVASCULAR: [Denies cp, palpitations]. RESPIRATORY: [Denies sob, cough]. GASTROINTESTINAL: [Denies abd pain, n/v/d/c]. GENITOURINARY: [Denies dysuria]. SKIN: [Denies rash]. MUSCULOSKELETAL: [See HPI]. NEUROLOGICAL: [See HPI]. ENDOCRINE: [Denies hx of DM]. HEMATOLOGIC/LYMPHATIC: [Denies easy bruising]. HOME MEDICATIONS: Please see below. PHYSICAL EXAMINATION: VITAL SIGNS: Please see below. GENERAL APPEARANCE: [This is a pleasant 50 y/o male. Patient appears uncomfortable at times and grimaces with movement.]. HEENT: [No mass or lesion. EOMI. No scleral icterus. Nares patent. oral mucosa moist]. CARDIOVASCULAR: [Regular rate, rhyhtm. No murmurs, rubs, gallops]. LUNGS: [Good air flow b/l. No wheezing, rales, rhonchi]. ABDOMEN: [Soft, nontender]. MUSCULOSKELETAL: [No joint deformity. Patient is able to move his lower extremities against gravity, but rom seems to be limited. Possibly d/t intense pain]. EXTREMITIES: [No peripheral edema. No overlying skin changes. Pulses intact.]. NEUROLOGICAL: [Sensation intact. Speech clear. Patient moves all fours. Strength rated at 3/5 in b/l LE and 5/5 in b/l UE. No focal deficits.]. PSYCHIATRIC: [Mood and affect appear appropriate.]. LABORATORY DATA: See below. IMAGING: [Lumbar spine CT: FINDINGS: Alignment and lordosis maintained. Vertebral bodies are intact and there is no evidence for acute fracture/compression injury or subluxation. Relatively stable advanced degenerative changes at L4-5 includes endplate sclerosis, underlying disc space narrowing, anterior/posterior osteophytosis, posterior disc bulge, facet hypertrophy and associated moderate canal stenosis. Remainder of the examination is relatively age-appropriate. The paravertebral soft tissues are normal. IMPRESSION: 1. Focal advanced degenerative spondylosis at L4-5 similar to prior examination with chronic posterior osteophyte, posterior disc bulge, and associated canal stenosis. 2. Remainder of the examination is relatively age-appropriate and within normal limits. CT Pelvis: FINDINGS: The osseous structures relatively normal/age-appropriate in stable. Subtle sclerosis spurring the sacroiliac joints (left greater than right) suggests very mild sacroiliitis. Stable 2.5 cm somewhat heterogeneous by well-demarcated lesion right iliac bone likely represents benign enchondroma. No evidence for acute or healed injury. Prostatomegaly with mass effect on the base of the bladder noted. Sigmoid diverticula are identified without acute diverticulitis. No ascites. 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 IMPRESSION: 1. Chronic nonacute findings as described above. Hip/Pelvis xray: FINDINGS: Osseous structures and joint spaces are intact and normal. Hip joints appear symmetric on frontal pelvic radiograph. No acute fracture dislocation. No evidence for healed injury. No significant degenerative or congenital abnormalities are appreciated. Surrounding soft tissues are unremarkable. IMPRESSION: Normal age-appropriate pelvis and left hip series. Femur xray: FINDINGS: The osseous structures and joint spaces are intact and normal. There is no evidence for acute fracture or dislocation. Surrounding soft tissues are unremarkable. No subcutaneous emphysema or radiodense foreign body. IMPRESSION: Normal age-appropriate left femur radiographs. No acute fracture or dislocation. Lumbar spine MRI: FINDINGS: Mild retrolisthesis of L3 on L4 and L4 on L5. Vertebral body heights are preserved. Disc desiccation greatest at L3-L4 and L4-L5 with moderate narrowing at L4-L5. There is degenerative endplate signal at L4-L5. Negative for discitis/osteomyelitis. Conus medullaris terminates at L1. No epidural fluid collection. Right common iliac artery aneurysm is stable from recent CT. L1-L2: Mild facet joint arthropathy without central or foraminal stenosis. L2-L3: Mild disc bulge and mild bilateral facet joint arthropathy. No central or foraminal stenosis. L3-L4: Disc bulge eccentric towards the left side. There is mild bilateral facet joint arthropathy and small left-sided facet joint effusion. No significant central canal stenosis. Mild left foraminal stenosis. L4-L5: Owqa-sb-amkzsojt disc osteophyte complex with bilateral facet joint arthropathy. There is alyb-ps-ojcrupyv central canal stenosis and grdd-ei-hgofkhqk bilateral foraminal stenosis. L5-S1: Bilateral facet joint arthropathy. No significant central or foraminal stenosis. IMPRESSION: 1. No acute abnormality involving the lumbar spine. 2. Degenerative findings as above greatest at L4-L5 where there is bhwp-xf-wkosnoxv central canal stenosis. ] MICROBIOLOGY: Please see below. ASSESSMENT: [This is a 50 y/o male with a pmh of a-fib, raffaele, gerd, ischemic bowel, bph, chronic lumbar and cervical radiculopathy who presents to our ED today after an injury caused him to fall and be unable to ambulate d/t severe back and hip pain, left worse than right. Spinal compression syndromes r/o in the ED.]. . PLAN: 1. [Severe lumbar radiculopathy - Exacerbated by bending movement today - No cord compression - Pain control with morphine, toradol - PT/OT eval ordered - Admit to med surg with obs for pt/ot eval 2. GERD - continue omeprazole 3. BPH - continue flomax 4. HLD - continue rosuvastatin, asa 5. Depression - continue lexapro DVT prophylaxis - Lovenox ordered]. Vital Signs Vital Signs Date Time Temp Pulse Resp B/P (MAP) Pulse Ox O2 Delivery O2 Flow Rate FiO2 05/09/21 22:42 16 05/09/21 20:25 97.8 05/09/21 20:24 70 131/90 (104) 97 Room Air Laboratory Data Labs 24H Laboratory Tests 2 05/09/21 19:58: Coronavirus (COVID-19)(PCR) NEGATIVE, Influenza Type A (RT-PCR) NEGATIVE, Influenza Type B (RT-PCR) NEGATIVE, Respiratory Syncytial Virus (PCR) NEGATIVE 05/09/21 21:23: Immature Granulocyte % (Auto) 0.4, Neutrophils (%) (Auto) 64.7, Lymphocytes (%) (Auto) 24.3, Monocytes (%) (Auto) 8.5H, Eosinophils (%) (Auto) 1.9, Basophils (%) (Auto) 0.2, Neutrophils # (Auto) 5.2, Lymphocytes # (Auto) 2.0, Monocytes # (Auto) 0.7, Eosinophils # (Auto) 0.2, Basophils # (Auto) 0.0, Nucleated Red Blood Cells % (auto) 0.0, Erythrocyte Sedimentation Rate 4, Anion Gap 2L, Glomerular Filtration Rate > 60.0, Calcium Level 8.6, Magnesium Level 2.1, Total Bilirubin 0.4, Aspartate Amino Transf (AST/SGOT) 19, Alanine Aminotransferase (ALT/SGPT) 54, Alkaline Phosphatase 78, C-Reactive Protein, Quantitative 0.30, Total Protein 6.6, Albumin 3.9, Albumin/Globulin Ratio 1.4 CBC/BMP Laboratory Tests 05/09/21 21:23 Home Medications Scheduled Aspirin (Aspirin EC) 81 Mg Tablet.dr, 81 MG PO QHS Escitalopram Oxalate (Lexapro) 20 Mg Tablet, 20 MG PO Q3RD Omeprazole (Omeprazole) 40 Mg Capsule.dr, 40 MG PO QHS Rosuvastatin Calcium (Rosuvastatin Calcium) 20 Mg Tablet, 20 MG PO QHS Tamsulosin HCl (Flomax) 0.4 Mg Capsule, 0.8 MG PO QHS Scheduled PRN Albuterol Sulfate (Albuterol Sulfate Hfa) 8.5 Gm Hfa.aer.ad, 2 PUFF INH Q4H PRN for SHORTNESS OF BREATH Allergies Coded Allergies: No Known Allergies (Unverified , 03/20/21) A-FIB/CHADSVASC A-FIB History Current/History of A-Fib/PAF?: No KOKI WYNN May 10, 2021 00:53 YANCY CHRISTIANSON MD May 31, 2021 15:11
[2021-05-10 02:54] VITALS: BP 144/90
[2021-05-10 06:00] VITALS: BP 121/78
[2021-05-10] MEDS ORDERED: ENOXAPARIN 40MG/0.4ML SYRINGE (J1650 PER 10MG) SC SCH (09:00)
--- NOTE | 2021-05-10 10:44 | IPNPDOC ---
Text Note Date of Service The patient was seen on 05/10/21. NOTE SUBJECTIVE: -No acute complaints OBJECTIVE: VITAL SIGNS: Please see below. GENERAL APPEARANCE: NAD this morning HEENT: NCAT, EOMI. No scleral icterus. Nares patent. MMM CARDIOVASCULAR: Regular rate, rhyhtm. No murmurs, rubs, gallops. LUNGS: Good air flow b/l. No wheezing, rales, rhonchi ABDOMEN: Normocaitve sounds, obese, soft, nontender MUSCULOSKELETAL: No joint deformity. Patient is able to move his lower extremities against gravity.ROM is full but cautious due to pain EXTREMITIES:No peripheral edema. No overlying skin changes. Pulses intact NEUROLOGICAL: Sensation intact. Speech clear. Patient moves all fours. Strength rated at 4/5 in b/l LE and 5/5 in b/l UE. No focal deficits. PSYCHIATRIC: AOx3, normal affect LABORATORY DATA: Reviewed IMAGING: Lumbar spine CT: FINDINGS: Alignment and lordosis maintained. Vertebral bodies are intact and there is no evidence for acute fracture/compression injury or subluxation. Relatively stable advanced degenerative changes at L4-5 includes endplate sclerosis, underlying disc space narrowing, anterior/posterior osteophytosis, posterior disc bulge, facet hypertrophy and associated moderate canal stenosis. Remainder of the examination is relatively age-appropriate. The paravertebral soft tissues are normal. IMPRESSION: 1. Focal advanced degenerative spondylosis at L4-5 similar to prior examination with chronic posterior osteophyte, posterior disc bulge, and associated canal stenosis. 2. Remainder of the examination is relatively age-appropriate and within normal limits. CT Pelvis: FINDINGS: The osseous structures relatively normal/age-appropriate in stable. Subtle sclerosis spurring the sacroiliac joints (left greater than right) suggests very mild sacroiliitis. Stable 2.5 cm somewhat heterogeneous by well-demarcated lesion right iliac bone likely represents benign enchondroma. No evidence for acute or healed injury. Prostatomegaly with mass effect on the base of the bladder noted. Sigmoid diverticula are identified without acute diverticulitis. No ascites. 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 IMPRESSION: 1. Chronic nonacute findings as described above. Hip/Pelvis xray: FINDINGS: Osseous structures and joint spaces are intact and normal. Hip joints appear symmetric on frontal pelvic radiograph. No acute fracture dislocation. No patrick dence for healed injury. No significant degenerative or congenital abnormalities are appreciated. Surrounding soft tissues are unremarkable. IMPRESSION: Normal age-appropriate pelvis and left hip series. Femur xray: FINDINGS: The osseous structures and joint spaces are intact and normal. There is no evidence for acute fracture or dislocation. Surrounding soft tissues are unremarkable. No subcutaneous emphysema or radiodense foreign body. IMPRESSION: Normal age-appropriate left femur radiographs. No acute fracture or dislocation. Lumbar spine MRI: FINDINGS: Mild retrolisthesis of L3 on L4 and L4 on L5. Vertebral body heights are preserved. Disc desiccation greatest at L3-L4 and L4-L5 with moderate narrowing at L4-L5. There is degenerative endplate signal at L4-L5. Negative for discitis/osteomyelitis. Conus medullaris terminates at L1. No epidural fluid collection. Right common iliac artery aneurysm is stable from recent CT. L1-L2: Mild facet joint arthropathy without central or foraminal stenosis. L2-L3: Mild disc bulge and mild bilateral facet joint arthropathy. No central or foraminal stenosis. L3-L4: Disc bulge eccentric towards the left side. There is mild bilateral facet joint arthropathy and small left-sided facet joint effusion. No significant central canal stenosis. Mild left foraminal stenosis. L4-L5: Uxgf-ga-qqzlmwfn disc osteophyte complex with bilateral facet joint arthropathy. There is uvfi-om-kzfqewop central canal stenosis and wlzc-cv-mgddxnlu bilateral foraminal stenosis. L5-S1: Bilateral facet joint arthropathy. No significant central or foraminal stenosis. IMPRESSION: 1. No acute abnormality involving the lumbar spine. 2. Degenerative findings as above greatest at L4-L5 where there is yxvw-fl-ovojhduv central canal stenosis. MICROBIOLOGY: Please see below. ASSESSMENT: 50 y/o M with a history of a-fib, raffaele, gerd, ischemic bowel, bph, chronic lumbar and cervical radiculopathy who presented to the ED d/t severe back and hip pain when he bent over to the extent that he fell over with chronic degenerative disease noted on imaging without acute fracture of cord compression and admitted for radiculopathy but clinical picture more c/w pulled hamstring muscles on the L that is now improving with rest. PLAN: L hamstring injury: - Exacerbated by bending movement - No cord compression or acute fracture on imaging as noted above - PT/OT eval, cleared for home discharge 2. GERD - continue omeprazole 3. BPH - continue flomax 4. HLD - continue rosuvastatin, asa 5. Depression - continue lexapro VS,Fishbone, I+O VS, Fishbone, I+O Laboratory Tests 05/09/21 21:23 Vital Signs Date Time Temp Pulse Resp B/P (MAP) Pulse Ox O2 Delivery O2 Flow Rate FiO2 05/10/21 06:00 97.9 69 18 121/78 (92) 95 Room Air I&O- Last 24 Hours up to 6 AM 05/10/21 06:00 Intake Total 240 ml Output Total 400 ml Balance -160 ml TRESSA PUCKETT MD May 10, 2021 10:09
--- NOTE | 2021-05-10 10:46 | DS.PDOC ---
Discharge Summary General Date of Admission May 09, 2021 at 15:34 Date of Discharge 05/10/2021 Attending Physician: TRESSA PUCKETT MD Discharge Summary PROCEDURES PERFORMED DURING STAY: None ADMITTING DIAGNOSES: Acute R lumbar radiculopathy DISCHARGE DIAGNOSES: L hamstring strain Chronic a-fib RAFFAELE Gerd History of ischemic bowel BPH chronic lumbar and cervical radiculopathy COMPLICATIONS/CHIEF COMPLAINT: Acute Right Lumbar Radiculopathy. 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 Patient reported that he was at a and when he bent over to pay his respects to the casket, he felt a loud pop in his left hip and immediately fell to the ground. Patient reported that he experienced severe pain at this time and was been unable to ambulate since d/t the pain. Patient reported that he did not strike his head when he fell. He had no issue walking before this and denie\d new onset incontinence, saddle anesthesias, leg paresthesias, inability to feel temperature in the lower extremities, pallor, paralysis, fever, chills, cough, sob. HOSPITAL COURSE: He had extensive lumbar spine imaging all the way to an MRI that showed chronic degenerative findings greatest at L4-L5 where there is dbdf-wz-ygzoddil central canal stenosis without evidence of acute fracture, edema, or severe stenosis. On working with PT on day 2 AM his symptoms improved and on examination he had full strength but notably had hamstring pain with an exam that was c/w hamstring injury and he ambulated with crutches. PT recommended discharge home with crutches, light duty and rest of his LLE when possible. He is now being discharged home. DISCHARGE MEDICATIONS: Please see below. ALLERGIES: Please see below. PHYSICAL EXAMINATION ON DISCHARGE: VITAL SIGNS: Please see below. GENERAL APPEARANCE: NAD this morning HEENT: NCAT, EOMI. No scleral icterus. Nares patent. MMM CARDIOVASCULAR: Regular rate, rhyhtm. No murmurs, rubs, gallops. LUNGS: Good air flow b/l. No wheezing, rales, rhonchi ABDOMEN: Normocaitve sounds, obese, soft, nontender MUSCULOSKELETAL: No joint deformity. Patient is able to move his lower extremities against gravity.ROM is full but cautious due to pain EXTREMITIES:No peripheral edema. No overlying skin changes. Pulses intact NEUROLOGICAL: Sensation intact. Speech clear. Patient moves all fours. Strength rated at 4/5 in LLE limited by pain and 5/5 in RLE. No focal deficits. PSYCHIATRIC: AOx3, normal affect LABORATORY DATA: Please see below. IMAGING: IMAGING: [Lumbar spine CT: FINDINGS: Alignment and lordosis maintained. Vertebral bodies are intact and there is no evidence for acute fracture/compression injury or subluxation. Relatively stable advanced degenerative changes at L4-5 includes endplate sclerosis, underlying disc space narrowing, anterior/posterior osteophytosis, posterior disc bulge, facet hypertrophy and associated moderate canal stenosis. Remainder of the examination is relatively age-appropriate. The paravertebral soft tissues are normal. IMPRESSION: 1. Focal advanced degenerative spondylosis at L4-5 similar to prior examination with chronic posterior osteophyte, posterior disc bulge, and associated canal stenosis. 2. Remainder of the examination is relatively age-appropriate and within normal limits. CT Pelvis: FINDINGS: The osseous structures relatively normal/age-appropriate in stable. Subtle sclerosis spurring the sacroiliac joints (left greater than right) suggests very mild sacroiliitis. Stable 2.5 cm somewhat heterogeneous by well-demarcated lesion right iliac bone likely represents benign enchondroma. No evidence for acute or healed injury. Prostatomegaly with mass effect on the base of the bladder noted. Sigmoid diverticula are identified without acute diverticulitis. No ascites. 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 IMPRESSION: 1. Chronic nonacute findings as described above. Hip/Pelvis xray: FINDINGS: Osseous structures and joint spaces are intact and normal. Hip joints appear symmetric on frontal pelvic radiograph. No acute fracture dislocation. No evidence for healed injury. No significant degenerative or congenital abnormalities are appreciated. Surrounding soft tissues are unremarkable. IMPRESSION: Normal age-appropriate pelvis and left hip series. Femur xray: FINDINGS: The osseous structures and joint spaces are intact and normal. There is no evidence for acute fracture or dislocation. Surrounding soft tissues are unremarkable. No subcutaneous emphysema or radiodense foreign body. IMPRESSION: Normal age-appropriate left femur radiographs. No acute fracture or dislocation. Lumbar spine MRI: FINDINGS: Mild retrolisthesis of L3 on L4 and L4 on L5. Vertebral body heights are preserved. Disc desiccation greatest at L3-L4 and L4-L5 with moderate narrowing at L4-L5. There is degenerative endplate signal at L4-L5. Negative for discitis/osteomyelitis. Conus medullaris terminates at L1. No epidural fluid collection. Right common iliac artery aneurysm is stable from recent CT. L1-L2: Mild facet joint arthropathy without central or foraminal stenosis. L2-L3: Mild disc bulge and mild bilateral facet joint arthropathy. No central or foraminal stenosis. L3-L4: Disc bulge eccentric towards the left side. There is mild bilateral facet joint arthropathy and small left-sided facet joint effusion. No significant central canal stenosis. Mild left foraminal stenosis. L4-L5: Pbit-id-zwrpspek disc osteophyte complex with bilateral facet joint arthropathy. There is ufik-ix-csbirnkr central canal stenosis and ruhe-ay-vjzspuld bilateral foraminal stenosis. L5-S1: Bilateral facet joint arthropathy. No significant central or foraminal stenosis. IMPRESSION: 1. No acute abnormality involving the lumbar spine. 2. Degenerative findings as above greatest at L4-L5 where there is ubbf-wu-modnslkn central canal stenosis. PROGNOSIS: good ACTIVITY: As tolerated DIET: 2g sodium DISCHARGE PLAN: Home with crutches, with plan to rest LLE as much as possible. Light duty at work. PCP postdischarge follow up within 7d. DISPOSITION: Home DISCHARGE INSTRUCTIONS: Home with crutches, with plan to rest LLE as much as possible. Light duty at work. PCP postdischarge follow up within 7d. ITEMS TO FOLLOWUP ON ON OUTPATIENT: L hamstring injury DISCHARGE CONDITION: Stable TIME SPENT ON DISCHARGE: 36 minutes. Vital Signs/I&Os Vital Signs Date Time Temp Pulse Resp B/P (MAP) Pulse Ox O2 Delivery O2 Flow Rate FiO2 05/10/21 06:00 97.9 69 18 121/78 (92) 95 Room Air I&O- Last 24 Hours up to 6 AM 05/10/21 06:00 Intake Total 240 ml Output Total 400 ml Balance -160 ml Laboratory Data Labs 24H Laboratory Tests 2 05/09/21 19:58: Coronavirus (COVID-19)(PCR) NEGATIVE, Influenza Type A (RT-PCR) NEGATIVE, Influenza Type B (RT-PCR) NEGATIVE, Respiratory Syncytial Virus (PCR) NEGATIVE 05/09/21 21:23: Immature Granulocyte % (Auto) 0.4, Neutrophils (%) (Auto) 64.7, Lymphocytes (%) (Auto) 24.3, Monocytes (%) (Auto) 8.5H, Eosinophils (%) (Auto) 1.9, Basophils (%) (Auto) 0.2, Neutrophils # (Auto) 5.2, Lymphocytes # (Auto) 2.0, Monocytes # (Auto) 0.7, Eosinophils # (Auto) 0.2, Basophils # (Auto) 0.0, Nucleated Red Blood Cells % (auto) 0.0, Erythrocyte Sedimentation Rate 4, Anion Gap 2L, Glomerular Filtration Rate > 60.0, Calcium Level 8.6, Magnesium Level 2.1, Total Bilirubin 0.4, Aspartate Amino Transf (AST/SGOT) 19, Alanine Aminotransferase (ALT/SGPT) 54, Alkaline Phosphatase 78, C-Reactive Protein, Quantitative 0.30, Total Protein 6.6, Albumin 3.9, Albumin/Globulin Ratio 1.4 CBC/BMP Laboratory Tests 05/09/21 21:23 Discharge Medications Scheduled Aspirin (Aspirin EC) 81 Mg Tablet.dr, 81 MG PO QHS, (Reported) Escitalopram Oxalate (Lexapro) 20 Mg Tablet, 20 MG PO Q3RD, (Reported) Omeprazole (Omeprazole) 40 Mg Capsule.dr, 40 MG PO QHS, (Reported) Rosuvastatin Calcium (Rosuvastatin Calcium) 20 Mg Tablet, 20 MG PO QHS, (Reported) Tamsulosin HCl (Flomax) 0.4 Mg Capsule, 0.8 MG PO QHS, (Reported) Scheduled PRN Albuterol Sulfate (Albuterol Sulfate Hfa) 8.5 Gm Hfa.aer.ad, 2 PUFF INH Q4H PRN for SHORTNESS OF BREATH, (Reported) Allergies Coded Allergies: No Known Allergies (Unverified , 03/20/21) TRESSA PUCKETT MD May 10, 2021 10:42
[2021-05-10] MEDS ORDERED: ESCITALOPRAM OXALATE 10 MG TAB (LEXAPRO) PO SCH (21:00)
--- NOTE | 2021-05-12 10:29 | ED PDOC ---
Post-Departure Follow-Up radiology report faxed to Monalisa Wilkinson MD May 12, 2021 10:29
== END 2021-05-10 11:50 | disposition home or self-care (01) ==
LOC: M ED 15:33 → EDBD 15:33 → M MS5PR 15:34 → INTOOBSV 15:34 → UNDOADMIN 15:34 → ENRESERV 05-10 00:34
PROVIDERS: ADMIT Family Medicine; ATTEND Family Medicine
DX: M54.16 Radiculopathy, lumbar region (principal); S76.302A Unspecified injury of muscle, fascia and tendon of the posterior muscle group at thigh level, left thigh, initial encounter; X58.XXXA Exposure to other specified factors, initial encounter; Y92.89 Other specified places as the place of occurrence of the external cause; Y93.9 Activity, unspecified; Y99.9 Unspecified external cause status; I48.20 Chronic atrial fibrillation, unspecified; G47.33 Obstructive sleep apnea (adult) (pediatric); K21.9 Gastro-esophageal reflux disease without esophagitis; N40.0 Benign prostatic hyperplasia without lower urinary tract symptoms; M54.12 Radiculopathy, cervical region; E78.49 Other hyperlipidemia; F32.9 Major depressive disorder, single episode, unspecified; Z79.82 Long term (current) use of aspirin; Z79.899 Other long term (current) drug therapy
CPT/HCPCS: 72131; 72148; 72192; 73502; 73552; 80053; 83735; 85025; 85652; 86140; 87631; 96372; 96374; 96376; 97161; 99285; J1650; J2270

== ENCOUNTER → 2021-05-13 | Outpatient (CLI) | payer BC ==
[~2021-05-13] MED LIST changes: +ASPI81TA26 PO; +LEXA1TAB2 PO
--- NOTE | 2021-05-13 08:56 | REP ---
INDICATION: OTHER NON SPEC ABN FINDING OF LUNG FIELD, DYSPNEA COMPARISON: 07/17/2017 TECHNIQUE: Axial noncontrast images from the thoracic inlet to the upper abdomen with coronal and sagittal reformations. This CT examination was performed using the following dose reduction techniques: Automated exposure control, adjustment of mA and/or kv according to the patient's size, and use of iterative reconstruction technique. FINDINGS: Bilateral lung barragan are well aerated and clear. No consolidation, suspicious nodule or mass. No effusion. No pneumothorax. Tracheobronchial tree is patent. No evidence for adenopathy. Mediastinum demonstrates normal thoracic aorta, pulmonary vasculature, and heart/pericardium. A small hiatal hernia at the gastroesophageal junction is noted. Surrounding musculoskeletal structures without acute osseous abnormality. Limited upper abdomen demonstrates normal bilateral adrenal glands. IMPRESSION: Relatively normal age-appropriate examination. No evidence for acute mediastinal or pleuroparenchymal process. <Electronically signed by Kumar Osorio > 05/13/21 [id number]
== END ==
LOC: M RAD 07:41
PROVIDERS: ATTEND Physician Assistant
DX: R91.8 Other nonspecific abnormal finding of lung field (principal); R06.00 Dyspnea, unspecified

== ENCOUNTER → 2021-05-21 | Outpatient (CLI) | payer BC ==
--- NOTE | 2021-05-21 10:47 | PFTRPT ---
Height: 73.00 Inches Weight: 245.00 Lbs BSA: 2.35 Diagnosis: R06.00 DATE: 05/21/2021 ORDERING PHYSICIAN: MAHOGANY Ludwig Pre and post bronchodilator studies have excellent technical quality. Forced vital capacity is normal. FEV1 is in proportion. Obstructive index is therefore normal. Expiratory limit of the flow-volume loop is normal. No significant bronchodilator response is identified. Total lung capacity is normal. Residual volume is in proportion. Diffusing capacity is normal and remains normal when corrected for alveolar volume. Hemoglobin is acceptable at 15.5. Airway resistance and conductance are normal. IMPRESSION: Normal baseline study. MTDD
== END ==
LOC: M CARPUL 09:48
PROVIDERS: ATTEND Physician Assistant
DX: R06.00 Dyspnea, unspecified (principal)

== ENCOUNTER → 2021-05-28 | Outpatient (CLI) | payer BC ==
[~2021-05-28] MED LIST changes: +ISOVUE-300 61% 50ML VIAL As Ordered ONE; +LIDOCAINE 1% MDV 20ML VIAL As Ordered ONE; +methylPREDNISolone SUSP 40MG/ML 1ML VIAL (DEPO MEDROL) As Ordered ONE
--- NOTE | 2021-05-28 12:53 | REP ---
INDICATION: LT SHOULDER BRUSITIS. COMPARISON: None TECHNIQUE: The procedure was performed by Mirian Burleson [facility], under the direct supervision of Dr. Peterson. The benefits and risks of the procedure were explained to the patient, and an informed consent was obtained. Directly prior to the start of the procedure, a formal time-out was completed in the procedure room. The left glenohumeral joint space was localized using fluoroscopic guidance. The skin was prepped and draped in a sterile fashion. Approximately 5 mL of 1% Lidocaine 10 mg/ml was used as a local anesthetic. Using fluoroscopic guidance, a #22 gauge spinal needle was inserted and advanced into the left glenohumeral joint space. Approximately 1 mL of Isovue 300 was injected to verify placement. Five mL of a solution containing 3 mL 1% lidocaine 10 mg/ml and 2 mL Depo-Medrol 40 milligrams/milliliter was injected into the joint space. The needle was removed and hemostasis was achieved. FINDINGS: The patient tolerated the procedure well and there were no immediate complications. IMPRESSION: 1. Fluoroscopic guided left shoulder pain injection. 0.1 minutes of fluoroscopy time was utilized for this procedure. Some fluoroscopic images are performed with last image hold technology. These images require no additional radiation. <Electronically signed by Mirian Burleson > 05/28/21 1225 <Electronically signed by Reece Peterson > 05/28/21 [id number]
== END ==
LOC: M RADPRO 10:57
PROVIDERS: ATTEND Physician Assistant Surgical
DX: M75.52 Bursitis of left shoulder (principal)
CPT/HCPCS: 20610; 77002; J1030; Q9967

== ENCOUNTER → 2021-06-10 | Outpatient (CLI) | payer BC ==
[~2021-06-10] MED LIST changes: +GABA-282 PO; -ISOVUE-300 61% 50ML VIAL As Ordered ONE; -LIDOCAINE 1% MDV 20ML VIAL As Ordered ONE; -methylPREDNISolone SUSP 40MG/ML 1ML VIAL (DEPO MEDROL) As Ordered ONE
== END ==
LOC: M LABSMTC 12:45
PROVIDERS: ATTEND Anesthesiology
DX: Z01.812 Encounter for preprocedural laboratory examination (principal); Z20.822 Contact with and (suspected) exposure to COVID-19

== ENCOUNTER 2021-06-15 11:59 | Day surgery (SDC) | payer BC ==
[~2021-06-15] VITALS: Ht 185.4 cm; Wt 108.0 kg
[~2021-06-15 11:59] MED LIST changes: +NS 1,000 ML IV ONE
[2021-06-15] MEDS ORDERED: SIMETHICONE 40MG/0.6ML DROPS 30ML As Ordered ONE (12:48)
[2021-06-15] MEDS ORDERED: LIDOCAINE 2% 100MG/5ML SDV (FOR ANES.) As Ordered ONE (13:01)
[2021-06-15] MEDS ORDERED: propofoL 200 MG/20 ML VIAL As Ordered ONE (13:01)
[2021-06-15] MEDS ORDERED: fentaNYL 100 MCG/2 ML INJECTION As Ordered ONE (13:01)
[2021-06-15 13:56] VITALS: BP 133/84
== END 2021-06-15 13:59 | disposition home or self-care (01) ==
LOC: M OPP 11:59
PROVIDERS: ATTEND Internal Medicine Gastroenterology
DX: K22.8 Other specified diseases of esophagus (principal); K29.70 Gastritis, unspecified, without bleeding; K21.9 Gastro-esophageal reflux disease without esophagitis; Z79.82 Long term (current) use of aspirin; Z79.899 Other long term (current) drug therapy
CPT/HCPCS: 43239; 88305; J3010

== ENCOUNTER → 2021-06-23 | Outpatient (CLI) | payer BC ==
[~2021-06-23] MED LIST changes: +METHACHOLINE KIT (J7674) INH ONE; -NS 1,000 ML IV ONE
--- NOTE | 2021-06-23 14:20 | PFTRPT ---
Site: [facility], [address] [place], [address] ID: [id number] Name: OMKAR BARAJAS Visit Date: 06/23/2021 Second ID: [id number] Referring Doctor: SUAD Barrios, Zane Cook Reviewing Doctor: Sridhar Wright MD Molecular Biology Director: Radha GALEANO RRT Age: 50 : 1970 Sex: Male Race: Height: 73.00 Inches Weight: 245.00 Lbs BSA: 2.35 Order IDs: [id number] Requested Test(s): <RESP-PFT.BROCHOPROV> Diagnosis: R06.00 puffs of albuterol for post bronchodilator. Review Status: Not Reviewed Pre-Bronch Post-Bronch Pred Actual %Pred Actual %Chng SPIROMETRY FVC (L) 5.51 5.25 95 5.10 -2 FEV1 (L) 4.24 4.08 96 3.97 -2 FEV1/FVC (%) 77 78 100 78 FEF 25% (L/sec) 8.52 8.92 104 8.52 -4 FEF 50% (L/sec) 5.16 4.20 81 3.88 -7 FEF 75% (L/sec) 1.79 1.36 76 1.20 -11 FEF 25-75% (L/sec) 3.63 3.45 94 3.12 -9 FEF Max (L/sec) 10.39 11.87 114 11.11 -6 FIVC (L) 5.19 5.13 -1 FIF 50% (L/sec) 4.91 10.86 221 8.85 -18 FIF Max (L/sec) 11.08 9.16 -17 Expiratory Time (sec) 5.90 7.39 25 Back Extrap Vol (L) 0.11 0.12 6 Time To FEFmax (sec) 0.064 0.071 9
== END ==
LOC: M CARPUL 13:13
PROVIDERS: ATTEND Physician Assistant
DX: R06.00 Dyspnea, unspecified (principal)
CPT/HCPCS: 94070; J7674

== ENCOUNTER 2021-07-18 12:33 | Emergency (ER) | payer BC ==
[~2021-07-18] VITALS: Ht 185.4 cm; Wt 108.4 kg
[~2021-07-18 12:33] MED LIST changes: -METHACHOLINE KIT (J7674) INH ONE
[2021-07-18 14:41] LABS: RSV AMPLIFICATION NEGATIVE (NEGATIVE)
[2021-07-18 17:16] VITALS: BP 141/84
== END 2021-07-18 17:17 | disposition home or self-care (01) ==
LOC: M ED 12:33
DX: U07.1 COVID-19 (principal); Z20.828 Contact with and (suspected) exposure to other viral communicable diseases; E78.5 Hyperlipidemia, unspecified; K21.9 Gastro-esophageal reflux disease without esophagitis; N40.0 Benign prostatic hyperplasia without lower urinary tract symptoms; M54.9 Dorsalgia, unspecified; G47.33 Obstructive sleep apnea (adult) (pediatric); K52.9 Noninfective gastroenteritis and colitis, unspecified; Z79.82 Long term (current) use of aspirin; Z79.899 Other long term (current) drug therapy

== ENCOUNTER → 2021-09-02 | Outpatient (CLI) | payer BC ==
--- NOTE | 2021-09-02 10:52 | REP ---
INDICATION: COUGH, UNSPECIFIED COMPARISON: 03/20/2021 TECHNIQUE: PA and lateral. FINDINGS: The mediastinum and cardiac silhouette are normal. The lung barragan are clear and without acute consolidation, effusion, or pneumothorax. The skeletal structures are intact and normal. IMPRESSION: No acute cardiopulmonary process. <Electronically signed by Kumar Osorio > 09/02/21 1041
== END ==
LOC: M RAD 10:12
PROVIDERS: ATTEND Nurse Practitioner Family
DX: R05.9 Cough, unspecified (principal)

== ENCOUNTER → 2021-11-04 | Outpatient (CLI) | payer BC ==
[2021-11-04 13:17] LABS: BASO % 0.4 % (0.0-1.0); EOS # 0.1 10^3/uL (0.0-0.5); EOS % 1.2 % (0.0-3.0); HEMATOCRIT 45.7 % (42.0-52.0); HEMOGLOBIN 14.8 g/dl (13.5-17.5); LYMPH # 2.2 10^3/uL (1.5-5.0); LYMPH % 27.3 % (24.0-44.0); MEAN CORPUSCULAR HEMOGLOBIN 30.3 pg (27.0-33.0); MEAN CORPUSCULAR HGB CONC 32.4 g/dl (32.0-36.5); MEAN CORPUSCULAR VOLUME 93.5 fl (80.0-96.0); MONO # 0.5 10^3/uL (0.0-0.8); MONO % 6.3 % (2.0-8.0); NEUTROPHILS # 5.3 10^3/uL (1.5-8.5); NEUTROPHILS % 64.3 % (36.0-66.0); PLATELET COUNT, AUTOMATED 205 10^3/uL (150-450); RED BLOOD COUNT 4.89 10^6/uL (4.30-6.10); WHITE BLOOD COUNT 8.2 10^3/uL (4.0-10.0)
[2021-11-04 13:47] LABS: ALBUMIN 4.2 GM/DL (3.2-5.2); ALT/SGPT 68 U/L (12-78); BILIRUBIN,TOTAL 0.4 MG/DL (0.2-1.0); BLOOD UREA NITROGEN 18 MG/DL (7-18); CALCIUM LEVEL 8.7 MG/DL (8.5-10.1); CARBON DIOXIDE LEVEL 28 MEQ/L (21-32); CHLORIDE LEVEL 108 MEQ/L (98-107); CREATININE FOR GFR 0.94 MG/DL (0.70-1.30); GLOMERULAR FILTRATION RATE > 60.0 (>56); GLUCOSE, FASTING 122 MG/DL (70-100); POTASSIUM SERUM 3.6 MEQ/L (3.5-5.1); RHEUMATOID FACTOR QUANT < 10.0 IU/ML (<15.0); SODIUM LEVEL 141 MEQ/L (136-145); TOTAL PROTEIN 7.6 GM/DL (6.4-8.2)
[2021-11-04 13:50] LABS: ERYTHROCYTE SEDIMENTATION RATE 4 mm/hr (0-20)
[2021-11-05 13:08] LABS: ANTI DOUBLE STRAND-DNA AB 15 IU/mL (0-9); ANTINUCLEAR ANTIBODIES DIRECT Positive (Negative); RNP ANTIBODIES 1.4 AI (0.0-0.9); SJOGREN'S ANTI SS-A <0.2 AI (0.0-0.9); SJOGREN'S ANTI SS-B <0.2 AI (0.0-0.9); SMITH ANTIBODIES <0.2 AI (0.0-0.9)
== END ==
LOC: M LAB 11:39
PROVIDERS: ATTEND Nurse Practitioner Family
DX: M12.9 Arthropathy, unspecified (principal)

== ENCOUNTER → 2021-11-04 | Outpatient (CLI) | payer BC ==
[2021-11-05 17:07] LABS: Lyme Disease IgG/IgM Antibodie <0.91 ISR (0.00-0.90); Lyme Disease IgM Ab Quantitati <0.80 index (0.00-0.79)
== END ==
LOC: M LAB 11:35
PROVIDERS: ATTEND Physician Assistant
DX: M17.12 Unilateral primary osteoarthritis, left knee (principal)

== ENCOUNTER → 2021-11-04 | Outpatient (CLI) | payer BC | LOC: M LAB 11:32 | PROVIDERS: ATTEND Nurse Practitioner Women's Health | DX: Z12.5 Encounter for screening for malignant neoplasm of prostate (principal) | CPT/HCPCS: 36415; G0103 ==

== ENCOUNTER 2021-11-15 12:05 | Emergency (ER) | payer OTHER, BC ==
[~2021-11-15] VITALS: Ht 185.4 cm; Wt 112.9 kg
[2021-11-15] MEDS ORDERED: LEXA1TAB2 (12:15)
[2021-11-15] MEDS ORDERED: OXYB10TA23 (12:15)
[2021-11-15] MEDS ORDERED: DICL1GEL3 (12:15)
[2021-11-15] MEDS ORDERED: KETOROLAC 60MG 2ML VIAL IM ONE (13:20)
[2021-11-15] MEDS ORDERED: diazePAM 10MG/2ML SYRINGE (J3360 PER 5MG) IM ONE (14:45)
[2021-11-15] MEDS ORDERED: LIDOCAINE 5% (LIDODERM) PATCH TD ONE (16:30)
[2021-11-15] MEDS ORDERED: diazePAM 5MG TABLET PO ONE (16:30)
[2021-11-15] MEDS ORDERED: NORCO, ANEXSIA 5/325MG TABLET (HYDROcodone/ACETAMINOPHEN) PO ONE (16:30)
[2021-11-15 19:31] VITALS: BP 120/61
[2021-11-15] MEDS ORDERED: ASPE4PAD TOP (19:35)
[2021-11-15] MEDS ORDERED: METH-1165 PO (19:35)
[2021-11-15] MEDS ORDERED: HYDR-3713 PO (19:37)
[2021-11-16] MEDS ORDERED: **NOTE PATIENT COMMENT** MISC XX ONE (04:00)
--- NOTE | 2021-11-16 09:48 | REP ---
INDICATION: intractable back pain. COMPARISON: 05/09/2021. TECHNIQUE: Multiple sequences in the sagittal axial planes. FINDINGS: There is minimal retrolisthesis of L3 on L4 and L4 on L5. There is no compression deformity. There is loss of water signal and disc degeneration at L3-4 with associated mild disc space narrowing, and at L4-5, with moderate narrowing at that disc space. Degenerative endplate signal changes are seen at the L4-5 level. The conus is unremarkable. At L1-2 there are mild hypertrophic changes of the facets, with no disc bulging or herniation. There is no spinal stenosis or foraminal narrowing. At L2-3 there is mild diffuse disc bulging with facet arthropathy. There is no spinal stenosis or foraminal narrowing. At L3-4 there is diffuse asymmetric disc bulging, more so to the left. There is mild to moderate facet arthropathy. There is very mild central canal stenosis and bilateral subarticular recess stenosis left greater than right. There is also mild left foraminal stenosis. At L4-5 there is a large disc bulge and mild osteophytosis. There is thickening of the ligamentum flavum with facet joint hypertrophy. There is mild to moderate central canal stenosis and nadd-by-iwdryhty bilateral foraminal stenosis. There is minimal increased T2 signal in the L4-5 disc, present on the prior exam but slightly increased when compared to the prior exam. This most likely represents progression of degenerative disc change rather than discitis, however, there is concern for infection consider post contrast MRI. At L5-S1 there is mild facet arthropathy. There is no spinal stenosis or foraminal narrowing. IMPRESSION: At L4-5 there is a large disc bulge and mild osteophytosis. There is thickening of the ligamentum flavum with facet joint hypertrophy. There is mild to moderate central canal stenosis and ixxu-rt-tcdwueot bilateral foraminal stenosis. This is unchanged a stable compared to the prior exam. There is minimal increased T2 signal in the L4-5 disc, present on the prior exam but slightly increased when compared to the prior exam. This most likely represents progression of degenerative disc change rather than discitis, however, there is concern for infection consider post contrast MRI. <Electronically signed by Pio Parker > 11/16/21 0951
== END 2021-11-15 20:00 | disposition home or self-care (01) ==
LOC: M ED 12:05
DX: M51.36 Other intervertebral disc degeneration, lumbar region (principal); M51.26 Other intervertebral disc displacement, lumbar region; G89.29 Other chronic pain
CPT/HCPCS: 72148; 96372; 99283; J1885; J3360

== ENCOUNTER → 2022-02-04 | Outpatient (REF) | payer BC ==
[~2022-02-04] MED LIST changes: +ASPE4PAD TOP; +DICL1GEL3; +HYDR-3713 PO; +LEXA1TAB2; +METH-1165 PO; +OXYB10TA23
[2022-02-04 16:53] LABS: APPEARANCE, URINE CLEAR (CLEAR); BACTERIA, URINE AUTO NEGATIVE (NEGATIVE); BILIRUBIN, URINE AUTO NEGATIVE (NEGATIVE); BLOOD, URINE BLOOD NEGATIVE (NEGATIVE); COLOR, URINE YELLOW (YELLOW); GLUCOSE, URINE (UA) AUTO NEGATIVE (NEGATIVE); KETONE, URINE AUTO NEGATIVE (NEGATIVE); LEUKOCYTE ESTERASE, URINE AUTO NEGATIVE (NEGATIVE); MUCUS, URINE SMALL (NEGATIVE); NITRITE, URINE AUTO NEGATIVE (NEGATIVE); PROTEIN, URINE AUTO NEGATIVE (NEGATIVE); RBC, URINE AUTO 1 /HPF (0-3); SPECIFIC GRAVITY URINE AUTO 1.021 (1.002-1.035); SQUAMOUS EPITHELIAL CELL UR AU 0 /HPF (0-6); UROBILINOGEN, URINE AUTO 0.2 mg/dL (0.0-2.0); WBC, URINE AUTO 1 /HPF (0-3)
[2022-02-04 16:57] LABS: BASO % 0.5 % (0.0-1.0); EOS # 0.2 10^3/uL (0.0-0.5); EOS % 3.2 % (0.0-3.0); HEMOGLOBIN 14.6 g/dl (13.5-17.5); LYMPH # 1.4 10^3/uL (1.5-5.0); LYMPH % 23.9 % (24.0-44.0); MEAN CORPUSCULAR HEMOGLOBIN 30.5 pg (27.0-33.0); MEAN CORPUSCULAR HGB CONC 33.2 g/dl (32.0-36.5); MEAN CORPUSCULAR VOLUME 92.1 fl (80.0-96.0); MONO # 0.5 10^3/uL (0.0-0.8); MONO % 9.6 % (2.0-8.0); NEUTROPHILS # 3.5 10^3/uL (1.5-8.5); NEUTROPHILS % 62.4 % (36.0-66.0); PLATELET COUNT, AUTOMATED 193 10^3/uL (150-450); RED BLOOD COUNT 4.78 10^6/uL (4.30-6.10); WHITE BLOOD COUNT 5.7 10^3/uL (4.0-10.0)
[2022-02-04 17:17] LABS: TOTAL PROTEIN,RANDOM URINE 15.3 MG/DL (0.0-12.0)
[2022-02-04 17:19] LABS: ALBUMIN 4.3 GM/DL (3.2-5.2); ALT/SGPT 91 U/L (12-78); BILIRUBIN,TOTAL 0.4 MG/DL (0.2-1.0); BLOOD UREA NITROGEN 16 MG/DL (7-18); CALCIUM LEVEL 9.5 MG/DL (8.5-10.1); CARBON DIOXIDE LEVEL 29 MEQ/L (21-32); CHLORIDE LEVEL 107 MEQ/L (98-107); COMPLEMENT C3 130 MG/DL (90-180); COMPLEMENT C4 34 MG/DL (10-40); CREATININE FOR GFR 0.94 MG/DL (0.70-1.30); GLOMERULAR FILTRATION RATE > 60.0 (>56); GLUCOSE, FASTING 106 MG/DL (70-100); POTASSIUM SERUM 4.5 MEQ/L (3.5-5.1); SODIUM LEVEL 140 MEQ/L (136-145); TOTAL PROTEIN 7.3 GM/DL (6.4-8.2)
[2022-02-04 18:09] LABS: ERYTHROCYTE SEDIMENTATION RATE 6 mm/hr (0-20)
== END ==
LOC: M SFHCRHEU 11:40
PROVIDERS: ATTEND Internal Medicine Rheumatology
DX: M25.50 Pain in unspecified joint (principal); R76.8 Other specified abnormal immunological findings in serum

== ENCOUNTER → 2022-02-14 | Outpatient (CLI) | payer BC | LOC: M RAD 14:00 | PROVIDERS: ATTEND Internal Medicine Rheumatology | DX: M25.50 Pain in unspecified joint (principal); R76.8 Other specified abnormal immunological findings in serum; M19.071 Primary osteoarthritis, right ankle and foot; M19.072 Primary osteoarthritis, left ankle and foot; M19.041 Primary osteoarthritis, right hand; M19.042 Primary osteoarthritis, left hand ==

== ENCOUNTER → 2022-04-20 | Outpatient (CLI) | payer BC ==
[2022-04-20 12:52] LABS: BASO % 0.3 % (0.0-1.0); EOS # 0.1 10^3/uL (0.0-0.5); HEMATOCRIT 43.7 % (42.0-52.0); HEMOGLOBIN 14.6 g/dl (13.5-17.5); LYMPH # 1.4 10^3/uL (1.5-5.0); LYMPH % 24.1 % (24.0-44.0); MEAN CORPUSCULAR HEMOGLOBIN 31.4 pg (27.0-33.0); MEAN CORPUSCULAR HGB CONC 33.4 g/dl (32.0-36.5); MONO # 0.5 10^3/uL (0.0-0.8); MONO % 9.2 % (2.0-8.0); NEUTROPHILS # 3.8 10^3/uL (1.5-8.5); NEUTROPHILS % 64.2 % (36.0-66.0); PLATELET COUNT, AUTOMATED 186 10^3/uL (150-450); RED BLOOD COUNT 4.65 10^6/uL (4.30-6.10); WHITE BLOOD COUNT 5.9 10^3/uL (4.0-10.0)
[2022-04-20 13:19] LABS: ERYTHROCYTE SEDIMENTATION RATE 6 mm/hr (0-20)
== END ==
LOC: M LAB 11:45
PROVIDERS: ATTEND Physician Assistant
DX: M48.061 Spinal stenosis, lumbar region without neurogenic claudication (principal)

== ENCOUNTER → 2022-05-12 | Outpatient (CLI) | payer BC ==
[2022-05-12 09:21] LABS: BASO % 0.6 % (0.0-1.0); EOS # 0.2 10^3/uL (0.0-0.5); EOS % 4.5 % (0.0-3.0); HEMATOCRIT 44.7 % (42.0-52.0); HEMOGLOBIN 14.8 g/dl (13.5-17.5); LYMPH # 1.3 10^3/uL (1.5-5.0); LYMPH % 25.3 % (24.0-44.0); MEAN CORPUSCULAR HEMOGLOBIN 30.6 pg (27.0-33.0); MEAN CORPUSCULAR HGB CONC 33.1 g/dl (32.0-36.5); MEAN CORPUSCULAR VOLUME 92.5 fl (80.0-96.0); MONO # 0.5 10^3/uL (0.0-0.8); MONO % 10.3 % (2.0-8.0); NEUTROPHILS # 2.9 10^3/uL (1.5-8.5); NEUTROPHILS % 59.1 % (36.0-66.0); PLATELET COUNT, AUTOMATED 169 10^3/uL (150-450); RED BLOOD COUNT 4.83 10^6/uL (4.30-6.10); WHITE BLOOD COUNT 4.9 10^3/uL (4.0-10.0)
[2022-05-12 10:10] LABS: ALBUMIN 3.9 GM/DL (3.2-5.2); ALT/SGPT 72 U/L (12-78); BILIRUBIN,TOTAL 0.6 MG/DL (0.2-1.0); BLOOD UREA NITROGEN 15 MG/DL (7-18); CARBON DIOXIDE LEVEL 24 MEQ/L (21-32); CHLORIDE LEVEL 112 MEQ/L (98-107); CHOLESTEROL LEVEL 179 MG/DL (<200); CHOLESTEROL RISK RATIO 5.114 (<5); CREATININE FOR GFR 0.85 MG/DL (0.70-1.30); FREE T4 0.77 NG/DL (0.76-1.46); GLOMERULAR FILTRATION RATE > 60.0 (>56); GLUCOSE, FASTING 112 MG/DL (70-100); HDL CHOLESTEROL 35 MG/DL (>40); LDL CHOLESTEROL 95 MG/DL (<100); NON-HDL-C 144 MG/DL; POTASSIUM SERUM 4.4 MEQ/L (3.5-5.1); SODIUM LEVEL 143 MEQ/L (136-145); TOTAL PROTEIN 7.1 GM/DL (6.4-8.2); TRIGLYCERIDES LEVEL 245 MG/DL (<150)
== END ==
LOC: M LAB 08:41
PROVIDERS: ATTEND Nurse Practitioner Family
DX: E78.2 Mixed hyperlipidemia (principal); R53.83 Other fatigue

== ENCOUNTER → 2022-05-19 | Outpatient (CLI) | payer BC | LOC: M RAD 08:33 | PROVIDERS: ATTEND Physician Assistant | DX: Z12.2 Encounter for screening for malignant neoplasm of respiratory organs (principal); Z87.891 Personal history of nicotine dependence ==

== ENCOUNTER → 2022-08-09 | Outpatient (CLI) | payer BC ==
[~2022-08-09] MED LIST changes: +GASTROGRAFIN SOLUTION 30ML (Q9963) As Ordered ONE; +ISOVUE-370 76% 100ML VIAL As Ordered ONE
== END ==
LOC: M RAD 12:49
PROVIDERS: ATTEND Nurse Practitioner Family
DX: R10.11 Right upper quadrant pain (principal); R10.31 Right lower quadrant pain; K76.0 Fatty (change of) liver, not elsewhere classified
CPT/HCPCS: 74177; Q9963; Q9967

== ENCOUNTER → 2022-08-19 | Outpatient (CLI) | payer BC ==
[~2022-08-19] MED LIST changes: -GASTROGRAFIN SOLUTION 30ML (Q9963) As Ordered ONE; -ISOVUE-370 76% 100ML VIAL As Ordered ONE
== END ==
LOC: M RAD 06:36
PROVIDERS: ATTEND Nurse Practitioner Family
DX: N50.812 Left testicular pain (principal); N50.3 Cyst of epididymis; N43.42 Spermatocele of epididymis, multiple

== ENCOUNTER → 2022-10-06 | Outpatient (CLI) | payer BC ==
[~2022-10-06] MED LIST changes: +BREO1INH3 INH; +ICOS1CAP PO
[2022-10-06 11:07] LABS: HEMATOCRIT 42.7 % (42.0-52.0); HEMOGLOBIN 13.8 g/dl (13.5-17.5); MEAN CORPUSCULAR HEMOGLOBIN 30.5 pg (27.0-33.0); MEAN CORPUSCULAR HGB CONC 32.3 g/dl (32.0-36.5); MEAN CORPUSCULAR VOLUME 94.3 fl (80.0-96.0); PLATELET COUNT, AUTOMATED 203 10^3/uL (150-450); RED BLOOD COUNT 4.53 10^6/uL (4.30-6.10); WHITE BLOOD COUNT 5.5 10^3/uL (4.0-10.0)
[2022-10-06 11:32] LABS: BLOOD UREA NITROGEN 16 MG/DL (9-23); CALCIUM LEVEL 8.9 MG/DL (8.5-10.1); CARBON DIOXIDE LEVEL 26 MMOL/L (20-31); CHLORIDE LEVEL 105 MMOL/L (98-107); CREATININE FOR GFR 0.81 MG/DL (0.70-1.30); GLOMERULAR FILTRATION RATE > 60.0 (>56); GLUCOSE, FASTING 101 MG/DL (60-100); POTASSIUM SERUM 4.3 MMOL/L (3.5-5.1); SODIUM LEVEL 140 MMOL/L (136-145)
[2022-10-06 11:40] LABS: INR 0.91; PROTHROMBIN TIME 12.4 SECONDS (12.5-14.5)
[2022-10-06 11:41] LABS: PARTIAL THROMBOPLASTIN TIME 25.9 SECONDS (24.8-34.2)
== END ==
LOC: M LAB 09:59
PROVIDERS: ATTEND Nurse Practitioner Women's Health
DX: Z01.818 Encounter for other preprocedural examination (principal); N50.3 Cyst of epididymis

== ENCOUNTER → 2022-10-06 | Outpatient (CLI) | payer BC ==
[2022-10-06 11:32] LABS: BILIRUBIN,DIRECT 0.2 MG/DL (<0.4); BILIRUBIN,TOTAL 0.6 MG/DL (0.3-1.2); CHOLESTEROL RISK RATIO 4.46 (<5); HDL CHOLESTEROL 35.4 MG/DL (>40); LDL CHOLESTEROL 75.4 MG/DL (<100); TOTAL PROTEIN 6.8 G/DL (5.7-8.2)
== END ==
LOC: M LAB 09:56
PROVIDERS: ATTEND Physician Assistant
DX: E78.2 Mixed hyperlipidemia (principal)

== ENCOUNTER → 2022-10-13 | Outpatient (CLI) | payer BC | LOC: M LABSMTC 11:20 | PROVIDERS: ATTEND Anesthesiology | DX: Z01.812 Encounter for preprocedural laboratory examination (principal); Z11.52 Encounter for screening for COVID-19 ==

== ENCOUNTER 2022-10-18 07:37 | Day surgery (SDC) | payer BC ==
[~2022-10-18] VITALS: Ht 185.4 cm; Wt 112.0 kg
[~2022-10-18 07:37] MED LIST changes: +ceFAZolin SOD 2 GM in IV 1 EA IV ONE
[2022-10-18] MEDS ORDERED: propofoL 200 MG/20 ML VIAL As Ordered ONE (08:20)
[2022-10-18] MEDS ORDERED: LIDOCAINE 2% 100MG/5ML SDV (FOR ANES.) As Ordered ONE (08:20)
[2022-10-18] MEDS ORDERED: KETOROLAC 60MG 2ML VIAL As Ordered ONE (08:20)
[2022-10-18] MEDS ORDERED: fentaNYL 100 MCG/2 ML INJECTION As Ordered ONE ×2 (08:20→10:18)
[2022-10-18] MEDS ORDERED: ONDANSETRON 4MG 2ML VIAL As Ordered ONE (08:20)
[2022-10-18] MEDS ORDERED: MIDAZOLAM INJ 2MG/2ML VIAL (J2250 PER 1MG) As Ordered ONE (08:20)
[2022-10-18] MEDS ORDERED: LR 1,000 ML IV SCH ×2 (08:30→10:40)
[2022-10-18] MEDS ORDERED: BACITRACIN OINTMENT 30GM TUBE As Ordered ONE (08:54)
[2022-10-18] MEDS ORDERED: BUPIVACAINE HCL 0.25% 30ML VIAL As Ordered ONE (08:54)
[2022-10-18] MEDS ORDERED: LIDOCAINE 1% SDV 30ML VIAL As Ordered ONE (08:54)
[2022-10-18] MEDS ORDERED: ACETAMINOPHEN 1000MG 100ML IV BAG As Ordered ONE (10:18)
[2022-10-18] MEDS ORDERED: ALBUTEROL 6.7GM INHALER **FOR ANES. CART/OMNICELL ONLY As Ordered ONE (10:37)
[2022-10-18] MEDS ORDERED: HYDROMORPHONE HCL 0.5 MG/ 0.5 ML SYRINGE (J1170 PER 1) IV PRN (10:40)
[2022-10-18] MEDS ORDERED: oxyCODONE 5MG TAB PO PRN (10:40)
[2022-10-18] MEDS ORDERED: ONDANSETRON 4MG 2ML VIAL IV PRN (10:40)
[2022-10-18] MEDS ORDERED: fentaNYL 100 MCG/2 ML INJECTION IV PRN (10:40)
[2022-10-18] MEDS ORDERED: HYDR-3713 PO (10:58)
[2022-10-18] MEDS ORDERED: NORCO, ANEXSIA 5/325MG TABLET (HYDROcodone/ACETAMINOPHEN) PO PRN (11:40)
[2022-10-18 12:21] VITALS: BP 122/69
== END 2022-10-18 12:22 | disposition home or self-care (01) ==
LOC: M SDC 07:37
PROVIDERS: ATTEND Urology
DX: N50.3 Cyst of epididymis (principal); K21.9 Gastro-esophageal reflux disease without esophagitis; E78.5 Hyperlipidemia, unspecified; J45.909 Unspecified asthma, uncomplicated; Z79.51 Long term (current) use of inhaled steroids; Z79.899 Other long term (current) drug therapy; G47.33 Obstructive sleep apnea (adult) (pediatric); Z87.891 Personal history of nicotine dependence
CPT/HCPCS: 54830; 88305; J0131; J0690; J1100; J1885; J2250; J2405; J3010

== ENCOUNTER → 2022-10-26 | Outpatient (REF) | payer BC ==
[~2022-10-26] MED LIST changes: -ceFAZolin SOD 2 GM in IV 1 EA IV ONE
[2022-10-26 18:43] LABS: APPEARANCE, URINE MANUAL TURBID (CLEAR); COLOR, URINE MANUAL YELLOW (YELLOW)
[2022-10-26 18:44] LABS: BILIRUBIN, URINE MANUAL NEGATIVE (NEGATIVE); BLOOD URINE MANUAL NEGATIVE (NEGATIVE); GLUCOSE, URINE (UA) MANUAL NEGATIVE (NEGATIVE); KETONE, URINE MANUAL NEGATIVE (NEGATIVE); LEUKOCYTE ESTERASE, URINE MAN TRACE (NEGATIVE); NITRITE, URINE MANUAL NEGATIVE (NEGATIVE); PROTEIN, URINE MANUAL NEGATIVE (NEGATIVE); UROBILINOGEN, URINE MANUAL 1 MG mg/dl (NORMAL)
[2022-10-26 20:08] LABS: AMORPHOUS SEDIMENT, URINE LARGE AMOUNT (NEGATIVE); BACTERIA, URINE NONE SEEN; MUCUS, URINE SMALL AMOUNT (NEGATIVE); RBC, URINE NONE SEEN /hpf (0-3); SQUAMOUS EPITHELIAL CELL URINE NONE SEEN /hpf (SMALL AMT); WBC, URINE 0-1 /hpf (0-3)
[2022-10-26 20:09] LABS: HYALINE CAST, URINE NONE SEEN /lpf (0-1)
== END ==
LOC: M SMT 16:53
PROVIDERS: ATTEND Urology
DX: N50.82 Scrotal pain (principal)

== ENCOUNTER → 2022-11-09 | Outpatient (CLI) | payer BC | LOC: M RAD 15:15 | PROVIDERS: ATTEND Urology | DX: N50.82 Scrotal pain (principal) ==

== ENCOUNTER → 2022-11-11 | Outpatient (CLI) | payer BC ==
[2022-11-11 16:08] LABS: BASO % 0.3 % (0.0-1.0); EOS # 0.2 10^3/uL (0.0-0.5); EOS % 2.4 % (0.0-3.0); HEMATOCRIT 39.8 % (42.0-52.0); HEMOGLOBIN 13.2 g/dl (13.5-17.5); LYMPH # 1.5 10^3/uL (1.5-5.0); LYMPH % 22.9 % (24.0-44.0); MEAN CORPUSCULAR HEMOGLOBIN 30.4 pg (27.0-33.0); MEAN CORPUSCULAR HGB CONC 33.2 g/dl (32.0-36.5); MEAN CORPUSCULAR VOLUME 91.7 fl (80.0-96.0); MONO # 0.7 10^3/uL (0.0-0.8); MONO % 11.3 % (2.0-8.0); NEUTROPHILS # 4.1 10^3/uL (1.5-8.5); NEUTROPHILS % 62.8 % (36.0-66.0); PLATELET COUNT, AUTOMATED 217 10^3/uL (150-450); RED BLOOD COUNT 4.34 10^6/uL (4.30-6.10); WHITE BLOOD COUNT 6.6 10^3/uL (4.0-10.0)
[2022-11-11 16:24] LABS: INR 0.92; PARTIAL THROMBOPLASTIN TIME 24.1 SECONDS (24.8-34.2); PROTHROMBIN TIME 12.6 SECONDS (12.5-14.5)
[2022-11-11 16:30] LABS: ALBUMIN 3.8 G/DL (3.2-5.2); ALKALINE PHOSPHATASE 90 U/L (46-116); ALT/SGPT 56 U/L (7.0-40); AST/SGOT 35 U/L (<34); BILIRUBIN,TOTAL 0.6 MG/DL (0.3-1.2); BLOOD UREA NITROGEN 14 MG/DL (9-23); CALCIUM LEVEL 8.8 MG/DL (8.5-10.1); CARBON DIOXIDE LEVEL 25 MMOL/L (20-31); CHLORIDE LEVEL 108 MMOL/L (98-107); CREATININE FOR GFR 0.93 MG/DL (0.70-1.30); GLOMERULAR FILTRATION RATE > 60.0 (>56); GLUCOSE, FASTING 93 MG/DL (60-100); POTASSIUM SERUM 3.9 MMOL/L (3.5-5.1); SODIUM LEVEL 141 MMOL/L (136-145); TOTAL PROTEIN 6.7 G/DL (5.7-8.2)
[2022-11-11 16:33] LABS: FREE T4 0.91 NG/DL (0.89-1.76); THYROID STIMULATING HORMONE 0.878 uIU/ML (0.55-4.78)
[2022-11-11 16:40] LABS: ERYTHROCYTE SEDIMENTATION RATE 25 mm/hr (0-20)
== END ==
LOC: M LAB 15:44
PROVIDERS: ATTEND Nurse Practitioner Family
DX: R21 Rash and other nonspecific skin eruption (principal)

== ENCOUNTER → 2023-01-12 | Outpatient (REF) | payer BC ==
[2023-01-12 13:07] LABS: APPEARANCE, URINE CLEAR (CLEAR); BACTERIA, URINE AUTO NEGATIVE (NEGATIVE); BILIRUBIN, URINE AUTO NEGATIVE (NEGATIVE); BLOOD, URINE BLOOD NEGATIVE (NEGATIVE); COLOR, URINE YELLOW (YELLOW); GLUCOSE, URINE (UA) AUTO NEGATIVE (NEGATIVE); KETONE, URINE AUTO TRACE mg/dL (NEGATIVE); LEUKOCYTE ESTERASE, URINE AUTO NEGATIVE (NEGATIVE); MUCUS, URINE SMALL (NEGATIVE); NITRITE, URINE AUTO NEGATIVE (NEGATIVE); PROTEIN, URINE AUTO NEGATIVE (NEGATIVE); RBC, URINE AUTO 2 /HPF (0-3); SPECIFIC GRAVITY URINE AUTO 1.023 (1.002-1.035); SQUAMOUS EPITHELIAL CELL UR AU 0 /HPF (0-6); WBC, URINE AUTO 1 /HPF (0-3)
[2023-01-12 13:15] LABS: BASO % 0.7 % (0.0-1.0); EOS # 0.2 10^3/uL (0.0-0.5); EOS % 3.3 % (0.0-3.0); HEMATOCRIT 45.5 % (42.0-52.0); HEMOGLOBIN 14.7 g/dl (13.5-17.5); LYMPH # 1.4 10^3/uL (1.5-5.0); LYMPH % 26.1 % (24.0-44.0); MEAN CORPUSCULAR HEMOGLOBIN 30.2 pg (27.0-33.0); MEAN CORPUSCULAR HGB CONC 32.3 g/dl (32.0-36.5); MEAN CORPUSCULAR VOLUME 93.4 fl (80.0-96.0); MONO # 0.5 10^3/uL (0.0-0.8); MONO % 8.3 % (2.0-8.0); NEUTROPHILS # 3.4 10^3/uL (1.5-8.5); NEUTROPHILS % 61.4 % (36.0-66.0); PLATELET COUNT, AUTOMATED 186 10^3/uL (150-450); RED BLOOD COUNT 4.87 10^6/uL (4.30-6.10); WHITE BLOOD COUNT 5.5 10^3/uL (4.0-10.0)
[2023-01-12 13:32] LABS: C REACTIVE PROTEIN QUANTITATIV < 0.40 MG/DL (<1.0)
[2023-01-12 13:33] LABS: COMPLEMENT C3 143.9 MG/DL (90.0-170.0); COMPLEMENT C4 34.9 MG/DL (12-36); ERYTHROCYTE SEDIMENTATION RATE 9 mm/hr (0-20)
[2023-01-12 13:34] LABS: TOTAL PROTEIN,RANDOM URINE 10.6 MG/DL (0.0-14.0)
[2023-01-12 13:35] LABS: CREATININE,RANDOM URINE 185.7 MG/DL
[2023-01-12 13:39] LABS: ALBUMIN 4.2 G/DL (3.2-5.2); ALKALINE PHOSPHATASE 76 U/L (46-116); ALT/SGPT 90 U/L (7.0-40); AST/SGOT 46 U/L (<34); BILIRUBIN,TOTAL 0.8 MG/DL (0.3-1.2); BLOOD UREA NITROGEN 16 MG/DL (9-23); CALCIUM LEVEL 9.2 MG/DL (8.5-10.1); CARBON DIOXIDE LEVEL 28 MMOL/L (20-31); CHLORIDE LEVEL 105 MMOL/L (98-107); CREATININE FOR GFR 0.86 MG/DL (0.70-1.30); GLOMERULAR FILTRATION RATE > 60.0 (>56); GLUCOSE, FASTING 96 MG/DL (60-100); POTASSIUM SERUM 4.2 MMOL/L (3.5-5.1); SODIUM LEVEL 141 MMOL/L (136-145); TOTAL PROTEIN 7.1 G/DL (5.7-8.2)
== END ==
LOC: M SFHCRHEU 10:55
PROVIDERS: ATTEND Internal Medicine Rheumatology
DX: M25.50 Pain in unspecified joint (principal); R76.8 Other specified abnormal immunological findings in serum; M79.89 Other specified soft tissue disorders

== ENCOUNTER → 2023-02-06 | Outpatient (CLI) | payer BC | LOC: M RAD 14:35 | PROVIDERS: ATTEND Internal Medicine Rheumatology | DX: M25.50 Pain in unspecified joint (principal); R76.8 Other specified abnormal immunological findings in serum; M79.89 Other specified soft tissue disorders; M19.041 Primary osteoarthritis, right hand; M19.042 Primary osteoarthritis, left hand ==

== ENCOUNTER 2023-02-15 11:03 | Emergency (ER) | payer BC ==
[~2023-02-15] VITALS: Ht 185.4 cm; Wt 118.1 kg
[2023-02-15 12:10] LABS: BASO % 0.5 % (0.0-1.0); EOS # 0.2 10^3/uL (0.0-0.5); EOS % 2.8 % (0.0-3.0); HEMOGLOBIN 14.2 g/dl (13.5-17.5); LYMPH # 1.8 10^3/uL (1.5-5.0); LYMPH % 30.4 % (24.0-44.0); MEAN CORPUSCULAR HEMOGLOBIN 30.4 pg (27.0-33.0); MEAN CORPUSCULAR VOLUME 92.1 fl (80.0-96.0); MONO # 0.6 10^3/uL (0.0-0.8); MONO % 9.9 % (2.0-8.0); NEUTROPHILS # 3.2 10^3/uL (1.5-8.5); NEUTROPHILS % 56.1 % (36.0-66.0); PLATELET COUNT, AUTOMATED 182 10^3/uL (150-450); RED BLOOD COUNT 4.67 10^6/uL (4.30-6.10); WHITE BLOOD COUNT 5.8 10^3/uL (4.0-10.0)
[2023-02-15 12:34] LABS: ALBUMIN 3.9 G/DL (3.2-5.2); ALKALINE PHOSPHATASE 66 U/L (46-116); ALT/SGPT 90 U/L (7.0-40); AST/SGOT 40 U/L (<34); BILIRUBIN,TOTAL 0.6 MG/DL (0.3-1.2); BLOOD UREA NITROGEN 19 MG/DL (9-23); CALCIUM LEVEL 8.7 MG/DL (8.5-10.1); CARBON DIOXIDE LEVEL 27 MMOL/L (20-31); CHLORIDE LEVEL 109 MMOL/L (98-107); CREATININE FOR GFR 0.81 MG/DL (0.70-1.30); GLOMERULAR FILTRATION RATE > 60.0 (>56); GLUCOSE, FASTING 96 MG/DL (60-100); POTASSIUM SERUM 4.2 MMOL/L (3.5-5.1); SODIUM LEVEL 143 MMOL/L (136-145); TOTAL PROTEIN 6.5 G/DL (5.7-8.2)
[2023-02-15] MEDS ORDERED: diazePAM 10MG/2ML SYRINGE IV ONE (15:40)
[2023-02-15] MEDS ORDERED: NS 1,000 ML IV ONE (17:00)
[2023-02-15 20:18] VITALS: BP 150/101
== END 2023-02-15 20:23 | disposition home or self-care (01) ==
LOC: M ED 11:03
DX: R55 Syncope and collapse (principal); R42 Dizziness and giddiness; J45.909 Unspecified asthma, uncomplicated; E78.5 Hyperlipidemia, unspecified; K21.9 Gastro-esophageal reflux disease without esophagitis; N40.0 Benign prostatic hyperplasia without lower urinary tract symptoms; M48.00 Spinal stenosis, site unspecified; Z79.82 Long term (current) use of aspirin; Z79.899 Other long term (current) drug therapy
CPT/HCPCS: 70544; 70547; 70551; 80053; 85025; 93005; 96374; 99284; J3360

== ENCOUNTER → 2023-02-16 | Outpatient (CLI) | payer BC | LOC: M RAD 08:07 | PROVIDERS: ATTEND Internal Medicine Rheumatology | DX: M25.50 Pain in unspecified joint (principal); R76.8 Other specified abnormal immunological findings in serum; M79.89 Other specified soft tissue disorders; M19.071 Primary osteoarthritis, right ankle and foot; M19.072 Primary osteoarthritis, left ankle and foot ==

== ENCOUNTER → 2023-04-20 | Outpatient (CLI) | payer BC | LOC: M RAD 10:51 | PROVIDERS: ATTEND Urology | DX: N50.812 Left testicular pain (principal); N50.3 Cyst of epididymis; N43.3 Hydrocele, unspecified ==

== ENCOUNTER → 2023-06-10 | Outpatient (CLI) | payer BC ==
[~2023-06-10] MED LIST changes: +DICY-61 PO; -DICY10CA13 PO; -ROSU20TA5 PO; +ROSU20TA61 PO
== END ==
LOC: M RAD 08:44
PROVIDERS: ATTEND Physician Assistant
DX: Z12.2 Encounter for screening for malignant neoplasm of respiratory organs (principal); Z87.891 Personal history of nicotine dependence

== ENCOUNTER → 2023-08-17 | Outpatient (CLI) | payer BC ==
[~2023-08-17] MED LIST changes: +DICL100G10; -DICL1GEL3; +OXYB5TAB10 PO; +PYRI1TAB5 PO
[2023-08-17 10:08] LABS: BASO % 0.3 % (0.0-1.0); EOS % 0.2 % (0.0-3.0); HEMATOCRIT 43.9 % (42.0-52.0); HEMOGLOBIN 14.5 g/dl (13.5-17.5); LYMPH # 1.3 10^3/uL (1.5-5.0); LYMPH % 11.3 % (24.0-44.0); MEAN CORPUSCULAR HEMOGLOBIN 30.7 pg (27.0-33.0); MONO # 0.8 10^3/uL (0.0-0.8); MONO % 6.9 % (2.0-8.0); NEUTROPHILS % 80.4 % (36.0-66.0); PLATELET COUNT, AUTOMATED 242 10^3/uL (150-450); RED BLOOD COUNT 4.72 10^6/uL (4.30-6.10); WHITE BLOOD COUNT 11.2 10^3/uL (4.0-10.0)
[2023-08-17 10:24] LABS: ERYTHROCYTE SEDIMENTATION RATE 31 mm/hr (0-20)
== END ==
LOC: M LAB 09:26
PROVIDERS: ATTEND Orthopaedic Surgery
DX: M19.011 Primary osteoarthritis, right shoulder (principal)

== ENCOUNTER 2023-08-24 07:59 | Emergency (ER) | payer BC ==
[~2023-08-24] VITALS: Ht 185.4 cm; Wt 116.4 kg
[~2023-08-24 07:59] MED LIST changes: -OXYB5TAB10 PO; +OXYB5TAB11 PO
[2023-08-24] MEDS ORDERED: CETI10CH PO (08:10)
[2023-08-24] MEDS ORDERED: NS 1,000 ML IV ONE (08:35)
[2023-08-24] MEDS ORDERED: KETOROLAC 30 MG/ML 1ML VIAL IV ONE (08:35)
[2023-08-24 08:56] LABS: BASO % 0.4 % (0.0-1.0); EOS # 0.1 10^3/uL (0.0-0.5); EOS % 1.7 % (0.0-3.0); HEMATOCRIT 41.7 % (42.0-52.0); HEMOGLOBIN 13.9 g/dl (13.5-17.5); LYMPH # 1.2 10^3/uL (1.5-5.0); LYMPH % 14.6 % (24.0-44.0); MEAN CORPUSCULAR HGB CONC 33.3 g/dl (32.0-36.5); MEAN CORPUSCULAR VOLUME 92.9 fl (80.0-96.0); MONO # 0.7 10^3/uL (0.0-0.8); MONO % 8.4 % (2.0-8.0); NEUTROPHILS # 6.2 10^3/uL (1.5-8.5); NEUTROPHILS % 74.5 % (36.0-66.0); PLATELET COUNT, AUTOMATED 204 10^3/uL (150-450); RED BLOOD COUNT 4.49 10^6/uL (4.30-6.10); WHITE BLOOD COUNT 8.3 10^3/uL (4.0-10.0)
[2023-08-24 09:21] LABS: ALBUMIN 3.8 G/DL (3.2-5.2); ALKALINE PHOSPHATASE 67 U/L (46-116); ALT/SGPT 60 U/L (7.0-40); AST/SGOT 30 U/L (<34); BILIRUBIN,DIRECT 0.2 MG/DL (<0.4); BILIRUBIN,TOTAL 0.7 MG/DL (0.3-1.2); BLOOD UREA NITROGEN 14 MG/DL (9-23); CALCIUM LEVEL 8.7 MG/DL (8.5-10.1); CARBON DIOXIDE LEVEL 26 MMOL/L (20-31); CHLORIDE LEVEL 106 MMOL/L (98-107); CREATININE FOR GFR 0.81 MG/DL (0.70-1.30); GLOMERULAR FILTRATION RATE > 60.0 (>56); GLUCOSE, FASTING 114 MG/DL (60-100); POTASSIUM SERUM 4.4 MMOL/L (3.5-5.1); SODIUM LEVEL 141 MMOL/L (136-145); TOTAL PROTEIN 6.6 G/DL (5.7-8.2)
[2023-08-24 09:23] LABS: INR 1.06; PROTHROMBIN TIME 13.5 SECONDS (12.5-14.5)
[2023-08-24 09:24] LABS: PARTIAL THROMBOPLASTIN TIME 23.7 SECONDS (24.8-34.2)
[2023-08-24] MEDS ORDERED: PHENAZOPYRIDINE 100 MG TAB PO ONE (09:25)
[2023-08-24] MEDS ORDERED: cefTRIAXone SOD 1 GM in D5W MINI-BAG PLUS 50 ML IV ONE (10:35)
[2023-08-24] MEDS ORDERED: LIDOCAINE 2% 5ML JELLY UROJET TOP ONE (10:35)
[2023-08-24] MEDS ORDERED: CEFD300C42 PO (12:48)
[2023-08-24 13:02] VITALS: BP 130/85; TEMP 97.3; O2SAT 96
== END 2023-08-24 13:27 | disposition home or self-care (01) ==
LOC: M ED 07:59
DX: N30.01 Acute cystitis with hematuria (principal); N32.89 Other specified disorders of bladder; R33.9 Retention of urine, unspecified; F10.10 Alcohol abuse, uncomplicated; G47.33 Obstructive sleep apnea (adult) (pediatric); J45.909 Unspecified asthma, uncomplicated; N40.0 Benign prostatic hyperplasia without lower urinary tract symptoms; K76.0 Fatty (change of) liver, not elsewhere classified; Z79.52 Long term (current) use of systemic steroids; Z79.82 Long term (current) use of aspirin; Z79.83 Long term (current) use of bisphosphonates; Z79.899 Other long term (current) drug therapy
CPT/HCPCS: 51703; 74176; 80048; 80076; 81001; 85025; 85610; 85730; 86850; 86900; 86901; 87088; 87186; 96361; 96374; 96375; 99284; J0696; J1885

== ENCOUNTER → 2023-09-12 | Outpatient (CLI) | payer BC ==
[~2023-09-12] MED LIST changes: +CEFD300C42 PO; +CETI10CH PO
== END ==
LOC: M RAD 17:55
PROVIDERS: ATTEND Urology
DX: Z01.818 Encounter for other preprocedural examination (principal); N40.1 Benign prostatic hyperplasia with lower urinary tract symptoms

== ENCOUNTER → 2023-09-13 | Outpatient (CLI) | payer BC ==
[2023-09-13 08:21] LABS: HEMATOCRIT 41.5 % (42.0-52.0); HEMOGLOBIN 13.9 g/dl (13.5-17.5); MEAN CORPUSCULAR HEMOGLOBIN 30.4 pg (27.0-33.0); MEAN CORPUSCULAR HGB CONC 33.5 g/dl (32.0-36.5); MEAN CORPUSCULAR VOLUME 90.8 fl (80.0-96.0); PLATELET COUNT, AUTOMATED 197 10^3/uL (150-450); RED BLOOD COUNT 4.57 10^6/uL (4.30-6.10); WHITE BLOOD COUNT 5.6 10^3/uL (4.0-10.0)
[2023-09-13 08:37] LABS: INR 1.02; PROTHROMBIN TIME 13.1 SECONDS (12.5-14.5)
[2023-09-13 08:45] LABS: BLOOD UREA NITROGEN 16 MG/DL (9-23); CALCIUM LEVEL 8.9 MG/DL (8.5-10.1); CARBON DIOXIDE LEVEL 26 MMOL/L (20-31); CHLORIDE LEVEL 106 MMOL/L (98-107); GLOMERULAR FILTRATION RATE > 60.0 (>56); GLUCOSE, FASTING 106 MG/DL (60-100); POTASSIUM SERUM 3.9 MMOL/L (3.5-5.1); SODIUM LEVEL 141 MMOL/L (136-145)
== END ==
LOC: M LAB 15:48
PROVIDERS: ATTEND Urology
DX: Z01.818 Encounter for other preprocedural examination (principal); N40.1 Benign prostatic hyperplasia with lower urinary tract symptoms; N39.0 Urinary tract infection, site not specified; Z12.5 Encounter for screening for malignant neoplasm of prostate
CPT/HCPCS: 36415; 80048; 85027; 85610; 85730; 87086; G0103

== ENCOUNTER 2023-09-21 11:46 | Day surgery (SDC) | payer BC ==
[~2023-09-21] VITALS: Ht 185.4 cm; Wt 116.1 kg
[~2023-09-21 11:46] MED LIST changes: +ceFAZolin SOD 2 GM in IV 1 EA IV ONE
[2023-09-21] MEDS ORDERED: ONDANSETRON 4MG 2ML VIAL As Ordered ONE (12:19)
[2023-09-21] MEDS ORDERED: propofoL 200 MG/20 ML VIAL As Ordered ONE ×2 (12:19→12:54)
[2023-09-21] MEDS ORDERED: LIDOCAINE 2% 100MG/5ML SDV (FOR ANES.) As Ordered ONE (12:19)
[2023-09-21] MEDS ORDERED: LR 1,000 ML IV SCH ×2 (12:20→15:10)
[2023-09-21] MEDS ORDERED: fentaNYL 100 MCG/2 ML INJECTION As Ordered ONE ×2 (12:51→14:22)
[2023-09-21] MEDS ORDERED: MIDAZOLAM INJ 2MG/2ML VIAL As Ordered ONE (12:52)
[2023-09-21] MEDS ORDERED: ACETAMINOPHEN 1000MG 100ML IV BAG As Ordered ONE (13:36)
[2023-09-21] MEDS ORDERED: FUROSEMIDE 100MG/10ML VIAL As Ordered ONE (14:49)
[2023-09-21] MEDS ORDERED: ONDANSETRON 4MG 2ML VIAL IV PRN (15:10)
[2023-09-21] MEDS ORDERED: fentaNYL 100 MCG/2 ML INJECTION IV PRN (15:10)
[2023-09-21] MEDS ORDERED: oxyCODONE 5MG TAB PO PRN (15:10)
[2023-09-21] MEDS ORDERED: CIPR-249 PO (15:45)
[2023-09-21 16:27] VITALS: BP 150/88; TEMP 98.3; O2SAT 96
== END 2023-09-21 16:41 | disposition home or self-care (01) ==
LOC: M SDC 11:46
PROVIDERS: ATTEND Urology
DX: N40.1 Benign prostatic hyperplasia with lower urinary tract symptoms (principal); R33.9 Retention of urine, unspecified; I48.91 Unspecified atrial fibrillation; K21.9 Gastro-esophageal reflux disease without esophagitis; J45.909 Unspecified asthma, uncomplicated; G47.33 Obstructive sleep apnea (adult) (pediatric); Z79.51 Long term (current) use of inhaled steroids; Z79.82 Long term (current) use of aspirin; Z79.899 Other long term (current) drug therapy
CPT/HCPCS: 52601; J0131; J0690; J1100; J1940; J2250; J2405; J3010

== ENCOUNTER 2023-10-07 10:26 | Emergency (ER) | payer BC ==
[~2023-10-07] VITALS: Ht 185.4 cm; Wt 117.2 kg
[~2023-10-07 10:26] MED LIST changes: -ceFAZolin SOD 2 GM in IV 1 EA IV ONE
[2023-10-07 11:17] LABS: BASO % 0.3 % (0.0-1.0); EOS # 0.1 10^3/uL (0.0-0.5); EOS % 1.2 % (0.0-3.0); HEMATOCRIT 39.2 % (42.0-52.0); HEMOGLOBIN 13.1 g/dl (13.5-17.5); LYMPH # 1.5 10^3/uL (1.5-5.0); LYMPH % 16.1 % (24.0-44.0); MEAN CORPUSCULAR HEMOGLOBIN 30.8 pg (27.0-33.0); MEAN CORPUSCULAR HGB CONC 33.4 g/dl (32.0-36.5); MEAN CORPUSCULAR VOLUME 92.2 fl (80.0-96.0); MONO # 0.9 10^3/uL (0.0-0.8); MONO % 9.8 % (2.0-8.0); NEUTROPHILS # 6.8 10^3/uL (1.5-8.5); NEUTROPHILS % 72.3 % (36.0-66.0); PLATELET COUNT, AUTOMATED 236 10^3/uL (150-450); RED BLOOD COUNT 4.25 10^6/uL (4.30-6.10); WHITE BLOOD COUNT 9.4 10^3/uL (4.0-10.0)
[2023-10-07] MEDS ORDERED: cefTRIAXone SOD 2 GM in D5W MINI-BAG PLUS 50 ML IV ONE (11:30)
[2023-10-07] MEDS ORDERED: OXYB5TAB11 (12:25)
[2023-10-07 12:36] LABS: ALBUMIN 3.2 G/DL (3.2-5.2); ALKALINE PHOSPHATASE 75 U/L (46-116); ALT/SGPT 55 U/L (7.0-40); AST/SGOT 38 U/L (<34); BILIRUBIN,TOTAL 0.6 MG/DL (0.3-1.2); BLOOD UREA NITROGEN 16 MG/DL (9-23); CALCIUM LEVEL 8.6 MG/DL (8.5-10.1); CARBON DIOXIDE LEVEL 28 MMOL/L (20-31); CHLORIDE LEVEL 106 MMOL/L (98-107); CREATININE FOR GFR 0.91 MG/DL (0.70-1.30); GLOMERULAR FILTRATION RATE > 60.0 (>56); GLUCOSE, FASTING 100 MG/DL (60-100); POTASSIUM SERUM 4.5 MMOL/L (3.5-5.1); SODIUM LEVEL 140 MMOL/L (136-145); TOTAL PROTEIN 6.5 G/DL (5.7-8.2)
[2023-10-07] MEDS ORDERED: ISOVUE-370 76% 100ML VIAL As Ordered ONE (12:42)
[2023-10-07] MEDS ORDERED: CIPR500T39 PO (14:45)
[2023-10-07 15:09] VITALS: BP 119/70; TEMP 98.7; O2SAT 97
== END 2023-10-07 15:10 | disposition home or self-care (01) ==
LOC: M ED 10:26
DX: N39.0 Urinary tract infection, site not specified (principal); K21.9 Gastro-esophageal reflux disease without esophagitis; E78.5 Hyperlipidemia, unspecified; J45.909 Unspecified asthma, uncomplicated; Z87.891 Personal history of nicotine dependence; Z79.52 Long term (current) use of systemic steroids; Z79.82 Long term (current) use of aspirin; Z79.83 Long term (current) use of bisphosphonates; Z79.899 Other long term (current) drug therapy
CPT/HCPCS: 74177; 80053; 81001; 83605; 85025; 87040; 87086; 87486; 87581; 87633; 87798; 96365; 99284; J0696; Q9967

== ENCOUNTER → 2023-10-28 | Outpatient (REF) | payer BC ==
[~2023-10-28] MED LIST changes: +CEFD1CAP9 PO; -CEFD300C42 PO; +CIPR500T39 PO; +OXYB5TAB11
[2023-10-28 11:58] LABS: APPEARANCE, URINE CLOUDY (CLEAR); BACTERIA, URINE AUTO NEGATIVE (NEGATIVE); BILIRUBIN, URINE AUTO NEGATIVE (NEGATIVE); BLOOD, URINE BLOOD 3+ (NEGATIVE); COLOR, URINE AMBER (YELLOW); GLUCOSE, URINE (UA) AUTO NEGATIVE (NEGATIVE); KETONE, URINE AUTO NEGATIVE (NEGATIVE); LEUKOCYTE ESTERASE, URINE AUTO 3+ (NEGATIVE); MUCUS, URINE SMALL (NEGATIVE); NITRITE, URINE AUTO NEGATIVE (NEGATIVE); PROTEIN, URINE AUTO 2+ mg/dL (NEGATIVE); RBC, URINE AUTO TNTC /HPF (0-3); SQUAMOUS EPITHELIAL CELL UR AU 0 /HPF (0-6); WBC, URINE AUTO TNTC /HPF (0-3)
== END ==
LOC: M SMT 09:37
PROVIDERS: ATTEND Urology
DX: N39.0 Urinary tract infection, site not specified (principal)

== ENCOUNTER → 2023-11-28 | Outpatient (CLI) | payer BC ==
[2023-11-28 09:12] LABS: ALBUMIN 3.8 G/DL (3.2-5.2); ALKALINE PHOSPHATASE 74 U/L (46-116); ALT/SGPT 78 U/L (7.0-40); AST/SGOT 39 U/L (<34); BILIRUBIN,TOTAL 0.6 MG/DL (0.3-1.2); BLOOD UREA NITROGEN 15 MG/DL (9-23); CALCIUM LEVEL 8.8 MG/DL (8.5-10.1); CARBON DIOXIDE LEVEL 26 MMOL/L (20-31); CHLORIDE LEVEL 110 MMOL/L (98-107); CHOLESTEROL LEVEL 177 MG/DL (<200); CHOLESTEROL RISK RATIO 5.01 (<5); CREATININE FOR GFR 0.84 MG/DL (0.70-1.30); GLOMERULAR FILTRATION RATE > 60.0 (>56); GLUCOSE, FASTING 110 MG/DL (60-100); HDL CHOLESTEROL 35.3 MG/DL (>40); LDL CHOLESTEROL 98.9 MG/DL (<100); NON-HDL-C 141.7 MG/DL; POTASSIUM SERUM 4.2 MMOL/L (3.5-5.1); SODIUM LEVEL 141 MMOL/L (136-145); TOTAL PROTEIN 6.7 G/DL (5.7-8.2); TRIGLYCERIDES LEVEL 214 MG/DL (<150)
[2023-11-28 09:13] LABS: HEMOGLOBIN A1c 5.7 % (4.0-6.0)
[2023-11-28 09:16] LABS: BASO % 0.6 % (0.0-1.0); EOS # 0.2 10^3/uL (0.0-0.5); EOS % 3.1 % (0.0-3.0); HEMATOCRIT 43.2 % (42.0-52.0); LYMPH # 1.6 10^3/uL (1.5-5.0); LYMPH % 29.4 % (24.0-44.0); MEAN CORPUSCULAR HEMOGLOBIN 29.5 pg (27.0-33.0); MEAN CORPUSCULAR HGB CONC 32.4 g/dl (32.0-36.5); MEAN CORPUSCULAR VOLUME 90.9 fl (80.0-96.0); MONO # 0.4 10^3/uL (0.0-0.8); MONO % 8.1 % (2.0-8.0); NEUTROPHILS # 3.2 10^3/uL (1.5-8.5); NEUTROPHILS % 58.4 % (36.0-66.0); PLATELET COUNT, AUTOMATED 186 10^3/uL (150-450); RED BLOOD COUNT 4.75 10^6/uL (4.30-6.10); WHITE BLOOD COUNT 5.4 10^3/uL (4.0-10.0)
== END ==
LOC: M LAB 07:30
PROVIDERS: ATTEND Nurse Practitioner Family
DX: E78.2 Mixed hyperlipidemia (principal)

== ENCOUNTER → 2023-11-28 | Outpatient (CLI) | payer BC ==
[2023-11-28 09:14] LABS: RHEUMATOID FACTOR QUANT < 3.5 IU/ML (<14)
[2023-11-28 09:16] LABS: VITAMIN B12 LEVEL 334 PG/ML (211-911)
[2023-11-28 09:27] LABS: FOLATE 11.35 NG/ML (>5.4)
[2023-12-01 20:07] LABS: ANTI DOUBLE STRAND-DNA AB 19 IU/mL (0-9); ANTINUCLEAR ANTIBODIES DIRECT Positive (Negative); RNP ANTIBODIES 1.3 AI (0.0-0.9); SJOGREN'S ANTI SS-A <0.2 AI (0.0-0.9); SJOGREN'S ANTI SS-B <0.2 AI (0.0-0.9); SMITH ANTIBODIES <0.2 AI (0.0-0.9); VITAMIN B1 LEVEL WHOLE BLOOD 99.9 nmol/L (66.5-200.0); VITAMIN B6,PYRIDOXAL PHOSPHATE 5.2 ug/L (3.4-65.2); VITAMIN E(GAMMA TOCOPHEROL) 1.8 mg/L (0.5-5.5)
== END ==
LOC: M LAB 07:27
PROVIDERS: ATTEND Psychiatry & Neurology Neurology
DX: R41.3 Other amnesia (principal); E53.8 Deficiency of other specified B group vitamins; E53.1 Pyridoxine deficiency; E51.9 Thiamine deficiency, unspecified

== ENCOUNTER → 2023-12-20 | Outpatient (CLI) | payer BC ==
[2023-12-20 17:47] LABS: PLATELET COUNT, AUTOMATED 195 10^3/uL (150-450)
[2023-12-20 18:01] LABS: INR 0.99; PROTHROMBIN TIME 12.8 SECONDS (12.5-14.5)
[2023-12-20 18:02] LABS: PARTIAL THROMBOPLASTIN TIME 24.6 SECONDS (24.8-34.2)
== END ==
LOC: M LAB 17:10
PROVIDERS: ATTEND Physician Assistant
DX: Z01.818 Encounter for other preprocedural examination (principal)

== ENCOUNTER → 2024-03-30 | Outpatient (REF) | payer BC ==
[~2024-03-30] MED LIST changes: -OXYB5TAB11; -OXYB5TAB11 PO; +OXYB5TAB14; +OXYB5TAB14 PO
[2024-03-30 13:05] LABS: APPEARANCE, URINE CLEAR (CLEAR); BACTERIA, URINE AUTO NEGATIVE (NEGATIVE); BILIRUBIN, URINE AUTO NEGATIVE (NEGATIVE); BLOOD, URINE BLOOD NEGATIVE (NEGATIVE); COLOR, URINE YELLOW (YELLOW); GLUCOSE, URINE (UA) AUTO NEGATIVE (NEGATIVE); KETONE, URINE AUTO NEGATIVE (NEGATIVE); LEUKOCYTE ESTERASE, URINE AUTO NEGATIVE (NEGATIVE); MUCUS, URINE SMALL (NEGATIVE); NITRITE, URINE AUTO NEGATIVE (NEGATIVE); PROTEIN, URINE AUTO NEGATIVE (NEGATIVE); RBC, URINE AUTO 0 /HPF (0-3); SPECIFIC GRAVITY URINE AUTO 1.018 (1.002-1.035); SQUAMOUS EPITHELIAL CELL UR AU 0 /HPF (0-6); UROBILINOGEN, URINE AUTO 0.2 mg/dL (0.0-2.0); WBC, URINE AUTO 1 /HPF (0-3)
== END ==
LOC: M SMT 12:00
PROVIDERS: ATTEND Urology
DX: N39.0 Urinary tract infection, site not specified (principal)

== ENCOUNTER → 2024-04-10 | Outpatient (CLI) | payer BC | LOC: M RAD 10:46 | PROVIDERS: ATTEND Physician Assistant Medical | DX: J32.8 Other chronic sinusitis (principal) ==

== ENCOUNTER → 2024-04-28 | Outpatient (CLI) | payer BC ==
[~2024-04-28] MED LIST changes: +ESOM1CAP20 PO; -ESOM1CAP5 PO; +ONDA-282 PO; -ONDA4TAB6 PO
[2024-04-28 11:20] LABS: HEMOGLOBIN A1c 6.1 % (4.0-6.0)
[2024-04-28 11:23] LABS: FREE T4 0.81 NG/DL (0.89-1.76); THYROID STIMULATING HORMONE 0.66 uIU/ML (0.55-4.78)
== END ==
LOC: M LAB 09:44
PROVIDERS: ATTEND Nurse Practitioner Family
DX: E66.9 Obesity, unspecified (principal)

== ENCOUNTER → 2024-04-28 | Outpatient (CLI) | payer BC ==
[2024-04-28 10:54] LABS: HEMATOCRIT 45.3 % (42.0-52.0); HEMOGLOBIN 15.2 g/dl (13.5-17.5); MEAN CORPUSCULAR HEMOGLOBIN 30.9 pg (27.0-33.0); MEAN CORPUSCULAR HGB CONC 33.6 g/dl (32.0-36.5); MEAN CORPUSCULAR VOLUME 92.1 fl (80.0-96.0); PLATELET COUNT, AUTOMATED 180 10^3/uL (150-450); RED BLOOD COUNT 4.92 10^6/uL (4.30-6.10); WHITE BLOOD COUNT 4.2 10^3/uL (4.0-10.0)
[2024-04-28 11:20] LABS: BLOOD UREA NITROGEN 18 MG/DL (9-23); CALCIUM LEVEL 8.9 MG/DL (8.5-10.1); CARBON DIOXIDE LEVEL 26 MMOL/L (20-31); CHLORIDE LEVEL 110 MMOL/L (98-107); CREATININE FOR GFR 0.85 MG/DL (0.70-1.30); GLOMERULAR FILTRATION RATE > 60.0 (>56); GLUCOSE, FASTING 119 MG/DL (60-100); POTASSIUM SERUM 4.4 MMOL/L (3.5-5.1); SODIUM LEVEL 142 MMOL/L (136-145)
== END ==
LOC: M LAB 09:46
PROVIDERS: ATTEND Physician Assistant
DX: R06.02 Shortness of breath (principal); R60.0 Localized edema

== ENCOUNTER → 2024-05-03 | Outpatient (CLI) | payer BC | LOC: M SOG 07:55 | PROVIDERS: ATTEND Physician Assistant | DX: M25.561 Pain in right knee (principal); M25.562 Pain in left knee ==

== ENCOUNTER → 2024-05-21 | Outpatient (CLI) | payer BC | LOC: M LAB 07:21 | PROVIDERS: ATTEND Urology | DX: E29.1 Testicular hypofunction (principal) ==

== ENCOUNTER → 2024-05-25 | Outpatient (CLI) | payer OTHER | LOC: M PLAIMG 07:00 | PROVIDERS: ATTEND Orthopaedic Surgery | DX: M17.0 Bilateral primary osteoarthritis of knee (principal); S83.241A Other tear of medial meniscus, current injury, right knee, initial encounter; M71.21 Synovial cyst of popliteal space [Baker], right knee; X58.XXXA Exposure to other specified factors, initial encounter; Y92.9 Unspecified place or not applicable; Y93.9 Activity, unspecified; Y99.9 Unspecified external cause status ==

== ENCOUNTER → 2024-07-01 | Outpatient (CLI) | payer BC ==
[2024-07-01 09:50] LABS: FOLLICLE STIMULATING HORMONE 5.8 mIU/ML (1.4-18.1); LUTEINIZING HORMONE 2.2 mIU/ML (1.5-9.3); PROLACTIN 3.78 NG/ML (2.1-17.7)
== END ==
LOC: M LAB 08:40
PROVIDERS: ATTEND Urology
DX: E29.1 Testicular hypofunction (principal)

== ENCOUNTER → 2024-07-01 | Outpatient (CLI) | payer BC ==
[2024-07-01 09:29] LABS: HEMOGLOBIN A1c 5.9 % (4.0-6.0)
[2024-07-01 10:03] LABS: ALBUMIN 3.9 G/DL (3.2-5.2); ALKALINE PHOSPHATASE 80 U/L (46-116); ALT/SGPT 118 U/L (7.0-40); AST/SGOT 62 U/L (<34); BILIRUBIN,TOTAL 0.7 MG/DL (0.3-1.2); BLOOD UREA NITROGEN 19 MG/DL (9-23); CALCIUM LEVEL 8.9 MG/DL (8.5-10.1); CARBON DIOXIDE LEVEL 28 MMOL/L (20-31); CHLORIDE LEVEL 108 MMOL/L (98-107); CREATININE FOR GFR 0.92 MG/DL (0.70-1.30); GLOMERULAR FILTRATION RATE > 60.0 (>56); GLUCOSE, FASTING 124 MG/DL (60-100); POTASSIUM SERUM 4.4 MMOL/L (3.5-5.1); SODIUM LEVEL 140 MMOL/L (136-145); TOTAL PROTEIN 6.9 G/DL (5.7-8.2)
[2024-07-01 10:07] LABS: TOTAL 25(OH) VITAMIN D 47.8 NG/ML (20.0-100.0)
[2024-07-01 10:08] LABS: FREE T4 0.79 NG/DL (0.89-1.76)
== END ==
LOC: M LAB 08:39
PROVIDERS: ATTEND Nurse Practitioner Family
DX: R73.03 Prediabetes (principal); E55.9 Vitamin D deficiency, unspecified; R94.6 Abnormal results of thyroid function studies

== ENCOUNTER → 2024-08-01 | Outpatient (CLI) | payer BC | LOC: M RAD 06:35 | PROVIDERS: ATTEND Physician Assistant | DX: Z12.2 Encounter for screening for malignant neoplasm of respiratory organs (principal); Z87.891 Personal history of nicotine dependence ==

== ENCOUNTER → 2025-01-04 | Outpatient (CLI) | payer BC, OTHER ==
[~2025-01-04] MED LIST changes: +GABA-1172 PO; -GABA-282 PO; -ROSU20TA61 PO; +ROSU20TA86 PO
[2025-01-04 09:06] LABS: HEMOGLOBIN A1c 6.2 % (4.0-6.0)
== END ==
LOC: M LAB 08:07
PROVIDERS: ATTEND Nurse Practitioner Family
DX: R73.03 Prediabetes (principal)

== ENCOUNTER → 2025-04-02 | Outpatient (CLI) | payer BC, OTHER ==
[~2025-04-02] MED LIST changes: -FLOM0.4C39 PO; +TAMS-18 PO
[2025-04-04 14:47] LABS: ANA SCREEN, IFA POSITIVE (NEGATIVE); ANA TITER 1:40 titer (<1:40)
== END ==
LOC: M LAB 08:34
PROVIDERS: ATTEND Allergy & Immunology
DX: L29.9 Pruritus, unspecified (principal)

== ENCOUNTER → 2025-08-19 | Outpatient (CLI) | payer BC | LOC: M CARPUL 13:02 | PROVIDERS: ATTEND Physician Assistant | DX: I77.810 Thoracic aortic ectasia (principal); I08.0 Rheumatic disorders of both mitral and aortic valves; I37.1 Nonrheumatic pulmonary valve insufficiency ==

== ENCOUNTER → 2025-08-29 | Outpatient (CLI) | payer BC | LOC: M RAD 07:42 | PROVIDERS: ATTEND Physician Assistant | DX: Z87.891 Personal history of nicotine dependence (principal) ==

== ENCOUNTER 2025-09-12 07:58 | Day surgery (SDC) | payer BC ==
[~2025-09-12] VITALS: Ht 185.4 cm; Wt 126.1 kg
[~2025-09-12 07:58] MED LIST changes: +METF-839 PO
[2025-09-12] MEDS: CIPRODEX OTIC SUSP 7.5 ML As Ordered ONE (09:45)
[2025-09-12] MEDS ORDERED: HYDROMORPHONE HCL 0.5 MG/0.5 ML SYRINGE IV PRN (10:00)
[2025-09-12] MEDS ORDERED: LR 1,000 ML IV SCH (10:00)
[2025-09-12] MEDS ORDERED: ONDANSETRON 4MG/2ML VIAL IV PRN (10:00)
[2025-09-12] MEDS ORDERED: MIDAZOLAM INJ 2 MG/2 ML VIAL As Ordered ONE (10:07)
[2025-09-12] MEDS ORDERED: ONDANSETRON 4MG/2ML VIAL As Ordered ONE (10:08)
[2025-09-12] MEDS ORDERED: LIDOCAINE 2% 100 MG/5 ML SDV (FOR ANES.) As Ordered ONE (10:08)
[2025-09-12] MEDS ORDERED: ACETAMINOPHEN 1000MG/100ML IV BAG As Ordered ONE (10:08)
[2025-09-12] MEDS ORDERED: dexAMETHasone 4 MG/ML 1 ML VIAL As Ordered ONE (10:08)
[2025-09-12 10:53] VITALS: BP 156/89; TEMP 96.5; O2SAT 96
== END 2025-09-12 11:14 | disposition home or self-care (01) ==
LOC: M SDC 07:58
PROVIDERS: ATTEND Otolaryngology
DX: H69.83 Other specified disorders of Eustachian tube, bilateral (principal); G47.33 Obstructive sleep apnea (adult) (pediatric); I48.91 Unspecified atrial fibrillation; E78.5 Hyperlipidemia, unspecified; E11.9 Type 2 diabetes mellitus without complications; K21.9 Gastro-esophageal reflux disease without esophagitis; J45.909 Unspecified asthma, uncomplicated; Z79.82 Long term (current) use of aspirin; Z79.84 Long term (current) use of oral hypoglycemic drugs; Z79.51 Long term (current) use of inhaled steroids
CPT/HCPCS: 69436; J0131; J1100; J2250; J2405; J3010

== ENCOUNTER → 2025-11-11 | Outpatient (CLI) | payer BC, OTHER ==
[2025-11-11 09:42] LABS: BASO # 0.0 10^3/uL (0.0-0.2); BASO % 0.4 % (0.0-1.0); EOS # 0.2 10^3/uL (0.0-0.5); EOS % 2.0 % (0.0-3.0); LYMPH # 1.5 10^3/uL (1.5-5.0); LYMPH % 20.9 % (24.0-44.0); MONO # 0.7 10^3/uL (0.0-0.8); MONO % 9.0 % (2.0-8.0); NEUTROPHILS # 5.0 10^3/uL (1.5-8.5); NEUTROPHILS % 67.3 % (36.0-66.0); PLATELET COUNT, AUTOMATED 178 10^3/uL (150-450)
[2025-11-11 10:21] LABS: C REACTIVE PROTEIN QUANTITATIV < 0.50 MG/DL (<1.0); RHEUMATOID FACTOR QUANT < 3.5 IU/ML (<14)
[2025-11-11 10:22] LABS: ALT/SGPT 113 U/L (7.0-40); AST/SGOT 54 U/L (<34); CALCIUM LEVEL 8.8 MG/DL (8.5-10.1); CARBON DIOXIDE LEVEL 27 MMOL/L (20-31); CHLORIDE LEVEL 105 MMOL/L (98-107); CPK CREATINE PHOSPHOKINASE 88 U/L (46-171); CREATININE FOR GFR 0.85 MG/DL (0.70-1.30); FREE T4 1.17 NG/DL (0.89-1.76); GLOMERULAR FILTRATION RATE > 90.0 (>56); MAGNESIUM LEVEL 2.0 MG/DL (1.8-2.4); POTASSIUM SERUM 4.3 MMOL/L (3.5-5.1); SODIUM LEVEL 141 MMOL/L (136-145); TOTAL 25(OH) VITAMIN D 20.6 NG/ML (20.0-100.0)
[2025-11-11 10:23] LABS: IRON (FE) 69 UG/DL (65-175); PERCENT SATURATION 19.0 % (19.7-50.0)
[2025-11-13 11:28] LABS: SSA SJOGRENS A <1.0 NEG AI (<1.0 NEG); SSB SJOGRENS B <1.0 NEG AI (<1.0 NEG)
[2025-11-14 16:48] LABS: BORRELIA SPECIES DNA NOT DETECTED (NOT DETECT)
[2025-11-15 13:02] LABS: HLA-B27 Negative (Negative)
[2025-11-15 21:33] LABS: LYME TOTAL ANTIBODY CIA <= 0.90 Index (<=0.90)
== END ==
LOC: M LAB 09:06
PROVIDERS: ATTEND Nurse Practitioner Family
DX: M12.9 Arthropathy, unspecified (principal); R07.89 Other chest pain